=== PATIENT | male | born 1945 | race Caucasian/White ===

== ENCOUNTER 2023-07-03 17:47 | Inpatient (IN) | payer MEDICARE, SELFPAY ==
[2023-07-03] VITALS (14 sets, daily range): BP systolic 78–117; BP diastolic 56–75; BMI 44.1; BMI 45.2
--- NOTE | 2023-07-03 10:40 | ED.GENMED ---
History of Present Illness
General
Chief Complaint: Catheter/Tube Problem
Source: patient
Exam Limitations: none
Time Seen by Provider: 07/03/23 10:26
Travel History
Have you had any contact with someone who has COVID-19?: No
Do you have any symptoms of coronavirus? Fever > 100 degrees, chills, cough, shortness of breath, sore throat, loss of taste or smell, muscle aches, or headache?: No
History of Present Illness
History of Present Illness:
78-year-old male Monday dialysis patient presents from the dialysis center with potential clotted AV fistula in the right upper extremity. He was here several weeks ago for the same and had a vascular procedure performed. Last
dialysis session was last Monday. He has no complaints to offer currently.
Past History
Past History
ED Past Medical History: CAD, Cancer (Bladder), GERD, HTN, Hypercholesterolemia, IDDM, [place], Renal failure, Valvular disease and Other (BPH)
ED Past Surgical History: Cardiac, Orthopedic (Amputation Left AKA, Right BKA,) and Urological (TURP)
Social History
Tobacco: Former smoker
Alcohol: None
Drug: None
Personal:
Living: [facility]
Family History
Family History: Negative Diabetes, Hypertension or CAD
Phy Exam
Physical Exam
Physical Exam:
General: Chronically ill-appearing male no acute respiratory distress
HEENT: Normocephalic atraumatic
Heart: Regular rate and rhythm
Lungs: Clear no wheezing or rales
Extremities: Bilateral lower extremity amputations
Vascular: AV fistula palpated in the right upper extremity but no palpable thrill
Neurologic: Alert and answering all questions appropriately
Course
Orders/Labs/Results
Orders:
Orders
07/03/23 10:38
US Hemodialysis Graft Urgent
Reason For Exam: AV fistula dysfunction
07/03/23 10:53
Complete Blood Count/With Diff Urgent
Comprehensive Metabolic Panel Urgent
07/03/23 11:02
Consult Interventional Radiology [IRAD CONSULT] Routine
Consulting Provider: Herminio Galvez
Was physician already notified: Yes
Reason for consult: fistula declot
07/03/23 14:17
Midazolam HCl [Versed] 2 mg .ROUTE .STK-MED ONE
07/03/23 14:18
Fentanyl Citrate/Pf [Sublimaze] 100 mcg .ROUTE .STK-MED ONE
07/03/23 14:26
Lidocaine 2% [Xylocaine 2% Mdv] 20 ml .ROUTE .STK-MED ONE
07/03/23 14:49
Heparin 5,000 units .ROUTE .STK-MED ONE
07/03/23 14:57
Alteplase [Cathflo/Activase] 2 mg 0.9% Sodium Chloride [Nss (Preservative Free)] 3 ml Syringe [Syringe Non-Pump] 0 ml INTRACATH IRAD
Abnormal Lab Results
07/03/23
10:53
RBC 3.43 L 10^6/uL
(4.70-6.10)
Hgb 10.8 L g/dL
(13.0-18.0)
Hct 35.6 L %
(39.0-52.0)
MCV 103.8 H fL
(80.0-94.0)
MCH 31.5 H pg
(27.0-31.0)
MCHC 30.3 L g/dL
(33.0-37.0)
RDW 19.4 H %
(11.5-14.5)
MPV 10.9 H fL
(7.4-10.4)
Absolute Lymphs (auto) 0.4 L 10^3/uL
(1.2-3.4)
Neutrophils % 82.1 H %
(42.2-75.2)
Lymphocytes % 7.2 L %
(20.5-51.1)
Potassium 5.4 H mmol/L
(3.5-5.1)
Carbon Dioxide 31 H mmol/L
(22-30)
BUN 80 H mg/dl
(9-20)
Creatinine 3.8 H mg/dL
(0.7-1.3)
Glucose 129 H mg/dl
(70-99)
Calcium 8.2 L mg/dl
(8.4-10.2)
Alkaline Phosphatase 135 H U/L
(38-126)
Total Protein 6.1 L g/dl
(6.3-8.2)
Albumin 3.1 L g/dl
(3.5-5.0)
07/03/23 10:53
07/03/23 10:53
Vital Signs
Initial and Last Documented VS:
Initial Vital Signs
Pulse Resp BP Pulse Ox
78 18 98/73 100
07/03/23 10:22 07/03/23 10:22 07/03/23 10:22 07/03/23 10:22
Last Documented Vital Signs
Temp Pulse Resp BP Pulse Ox
97.7 F 95 15 91/69 100
07/03/23 13:30 07/03/23 13:30 07/03/23 13:30 07/03/23 13:30 07/03/23 13:30
MDM/Problems Addressed
Differential Diagnosis Includes:
AV fistula dysfunction right upper extremity. Question possible reclot. Discussed findings with vascular surgery who requested duplex ultrasound of the right arm. Basic labs pending
*Critical Care Note
Total Time (30-74mins, 75-104mins- exclusive of procedures): Not Applicable
Update Note
Update Note:
Seen by vascular surgery ultrasound performed which confirms clot in the AV fistula. Patient went to interventional radiology for fistulogram. Potassium is 5.4. Will require admission for hemodialysis after working hemodialysis mechanism
ED Attending Note
-
Portions of this chart may have been created with voice recognition software.� Occasional wrong word or��sound alike� substitutions may have occurred due to the inherent limitations of voice recognition software.
Discharge Plan
Departure
Patient Disposition: Admit
Date of Disposition: 07/03/23
Time of Disposition: 16:34
Admit to: Med/Surg
Presentation/result/management discussed w/ accepting MD/DO: Hospitalist
Discharge Problem:
Dialysis AV fistula malfunction
Prescriptions:
No Action
tamsulosin 0.4 MG capsule
0.4 mg PO HS
atorvastatin 80 MG tablet
80 mg PO DAILY
escitalopram oxalate 5 MG tablet
5 mg PO HS
pantoprazole 40 MG tablet,delayed release (DR/EC)
40 mg PO BID
aspirin 81 MG tablet,chewable
81 mg PO DAILY
sevelamer HCl 800 mg Tablet
1,600 mg PO MEALS
melatonin 3 mg Tablet
6 mg PO HS
docusate sodium 100 mg Capsule
100 mg PO BID
mirtazapine 15 mg Tablet
15 mg PO HS
acetaminophen [Tylenol] 325 mg Tablet
650 mg PO Q4HPRN PRN (Reason: temp>100F)
bisacodyl [Dulcolax (bisacodyl)] 10 mg Suppository
10 mg [place] DAILYPRN PRN (Reason: constipation)
midodrine 10 mg tablet
10 mg PO .TID ON MOWEFR
Rx Instructions:
05/24/2023, hold if SBP>140.
acetaminophen [Tylenol] 325 mg Tablet
650 mg PO Q6H PRN (Reason: mild pain)
lidocaine-prilocaine 2.5-2.5 % Cream
1 applic TOPICAL MOWEFR
Rx Instructions:
05/24/2023, apply 1 hr prior to HD TX.
B-complex with vitamin C Tablet
1 tab PO DAILY
potassium, sodium phosphates [Phos-NaK] 280-160-250 mg Powder In Packet
1 packet PO BID
cholecalciferol (vitamin D3) 50 mcg (2,000 unit) Tablet
50 mcg PO DAILY
MediHoney (honey) 80 % Gel
1 applic TOPICAL .SEE BELOW
Rx Instructions:
05/24/2023, apply to sacrum topically every evening shift for wound care.
metoprolol succinate 25 mg tablet extended release 24 hr
25 mg PO DAILY
Referrals:
UNKNOWN,NO INTERVIEW [Family Provider] -
Interventions
Interventions:
*Risk Screen - Suicide Last Done: 07/03/23 10:22
*General Assessment Last Done: 07/03/23 10:22
*Neglect/Abuse Screening Last Done: 07/03/23 10:22
ED- Fall Risk Assessment Last Done: 07/03/23 10:35
*ED COVID-19 Vaccine History Last Done: 07/03/23 10:22
WQ-Wjzrdm-Bzkwswvino Assessment Last Done: 07/03/23 10:35
ED-Male Genitourinary Assessment Last Done: 07/03/23 10:35
--- NOTE | 2023-07-03 11:01 | W.PN.UPDATE ---
Update Note
Progress Note Update
Known to our service status post thrombectomy (endovascular) of right upper extremity AV graft (prior placed elsewhere) by me 6 weeks ago. Subsequently was working well until today unable to access at dialysis and no thrill palpated. Sent to
emergency room. On exam he has no thrill in the graft. No pulsatility. Hand is pink and warm and well-perfused. I discussed with him we could attempt thrombectomy again. Discussed with him procedure as well as risks including but limited to
bleeding, thrombotic complications including PE and embolic complications down the arm. Discussed possible need for tunneled dialysis catheter (moderate likelihood) and risks therein including pneumothorax. He understands all these things and
wishes to proceed. Unfortunately due to mechanical issues with our image intensifier in the hybrid OR, it is not functional currently. I spoke to interventional radiology Dr. Galvez and he would be willing to perform the procedure there in the
interventional suite. I did discuss with the patient the possibility of being performed by the interventional radiologist. He understood all was in agreement.
[2023-07-03 11:08] LABS: % Basophils 1.1 % (0-2); % Eosinophils 2.5 % (0-6); % Immature Granulocytes 0.4 % (0-0.5); % Lymphocytes 7.2 % (20.5-51.1); % Monocytes 6.7 % (1.7-9.3); % Neutrophils 82.1 % (42.2-75.2); Absolute Basophils 0.1 10^3/uL (0-0.2); Absolute Eosinophils 0.1 10^3/uL (0-0.7); Absolute Lymphocytes 0.4 10^3/uL (1.2-3.4); Absolute Monocytes 0.4 10^3/uL (0.1-0.6); Absolute Neutrophils 4.5 10^3/uL (1.4-6.5); Hematocrit 35.6 % (39.0-52.0); Hemoglobin 10.8 g/dL (13.0-18.0); Mean Corp Hgb Conc. 30.3 g/dL (33.0-37.0); Mean Corpuscular Hgb 31.5 pg (27.0-31.0); Mean Corpuscular Volume 103.8 fL (80.0-94.0); Mean Platelet Volume 10.9 fL (7.4-10.4); Nucleated Red Blood Cells % 0 % (-); Platelet Count 214 10^3/uL (130-400); Red Blood Cell Count 3.43 10^6/uL (4.70-6.10); Red Cell Dist. Width 19.4 % (11.5-14.5); White Blood Cell Count 5.5 10^3/uL (4.8-10.8)
[2023-07-03 11:21] LABS: ALT (SGPT) 16 U/L (0-50); AST (SGOT) 33 U/L (17-59); Albumin 3.1 g/dl (3.5-5.0); Alkaline Phosphatase 135 U/L (38-126); Blood Urea Nitrogen 80 mg/dl (9-20); Calcium 8.2 mg/dl (8.4-10.2); Carbon Dioxide 31 mmol/L (22-30); Chloride 102 mmol/L (98-107); Estimated Creatinine Clearance 9 ml/min; Glucose 129 mg/dl (70-99); Potassium 5.4 mmol/L (3.5-5.1); Sodium 140 mmol/L (135-145); Total Bilirubin 0.7 mg/dl (0.2-1.3); Total Protein 6.1 g/dl (6.3-8.2); eGFR 15.72
--- NOTE | 2023-07-03 16:59 | HPS.HSE ---
Family Physician
-
Family Physician: NO INTERVIEW UNKNOWN
Chief Complaint
-
fistula thrombosis
History of Present Illness
78-year-old male past medical history of end-stage renal disease on hemodialysis Monday, Monday, Monday, CAD status post stent, ischemic cardiomyopathy, HFrEF, moderate mitral regurgitation, mild to moderate tricuspid regurgitation, peripheral
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
chronic disease, legal blindness, hyperlipidemia, GERD, anxiety/depression, presenting from dialysis center with clotted AV fistula in the right upper extremity. His last dialysis session was on last Monday.
Patient currently sleeping and unwilling to answer questions at this time. Denies any complaints.
Patient was recently admitted in May of this year for thrombosed right upper extremity fistula. Patient had mechanical thrombectomy and placement of and placement of [place] Vi[employer]ahn covered stent outflow vein stenosis.
Patient also had acute on chronic anemia likely blood loss anemia from the procedure and received 1 unit of blood.
Medical History
Past Medical History
Past Medical History: Reports Other (end-stage renal disease on hemodialysis Monday, Monday, Monday, CAD status post stent, ischemic cardiomyopathy, HFrEF, moderate mitral regurgitation, mild to moderate tricuspid regurgitation, peripheral
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
Past Surgical History: Reports Other (Cardiac, Orthopedic (Amputation Left AKA, Right BKA,) and Urological (TURP))
Social History
Tobacco: Non-smoker
Alcohol: None
Drug: None
Family History
Family History: Not pertinent
Allergies / Home Medications
Allergies reflects when Allergies were last updated in [employer].
Home Medications with original date entered in [employer]
Allergy/Medication List:
Allergies
Allergy/AdvReac Type Severity Reaction Status Date / Time
No Known Allergies Allergy Verified 07/03/23 11:08
Home Medications
tamsulosin 0.4 mg capsule 0.4 mg PO HS Urinary issue 08/01/14
atorvastatin 80 mg tablet 80 mg PO DAILY High cholesterol 08/11/14
escitalopram oxalate 5 mg tablet 5 mg PO HS Mental Health/Anxiety 12/18/14
aspirin 81 mg chewable tablet 81 mg PO DAILY Blood clot prevention/tx 07/25/22
pantoprazole 40 mg tablet,delayed release 40 mg PO BID Gastrointestinal issue 07/25/22
docusate sodium 100 mg capsule 100 mg PO BID Constipation 02/28/23
melatonin 3 mg tablet 6 mg PO HS Sleep 02/28/23
mirtazapine 15 mg tablet 15 mg PO HS Mental Health/Anxiety 02/28/23
sevelamer HCl 800 mg tablet 1,600 mg PO MEALS Kidney Disease 02/28/23
acetaminophen 325 mg tablet (Tylenol) 650 mg PO Q4HPRN PRN temp>100F 03/27/23
bisacodyl 10 mg rectal suppository (Dulcolax (bisacodyl)) 10 mg [place] DAILYPRN PRN constipation 03/27/23
midodrine 10 mg tablet 10 mg PO TID Blood Pressure 04/13/23
B-complex with vitamin C 1 tab PO DAILY 05/24/23
acetaminophen 325 mg tablet (Tylenol) 650 mg PO Q6H PRN mild pain 05/24/23
cholecalciferol (vitamin D3) 50 mcg (2,000 unit) tablet 50 mcg PO DAILY 05/24/23
honey 80 % topical gel (MediHoney (honey)) 1 applic topical QPM apply to sacrum 05/24/23
lidocaine-prilocaine 2.5 %-2.5 % topical cream 1 applic topical MOWEFR apply to RUE AVF site 05/24/23
metoprolol succinate 25 mg tablet,extended release 24 hr 25 mg PO DAILY Heart disease/condition 05/24/23
potassium, sodium phosphates 280 mg-160 mg-250 mg oral powder packet (Phos-NaK) 1 packet PO BID 05/24/23
Review of Systems
-
History Source: Patient
A 12 point ROS was completed and negative except as noted: Yes
Constitutional: Reports No Symptoms
EENT: Reports No Symptoms
Respiratory: Reports No Symptoms
Cardiac: Reports No Symptoms
Abdomen/GI: Reports No Symptoms
: Reports No Symptoms
Musculoskeletal: Reports No Symptoms
Skin: Reports No Symptoms
Neurological: Reports No Symptoms
Endocrine: Reports No Symptoms
Hematologic/Lymphatic: Reports No Symptoms
Psych: Reports No Symptoms
Physical Exam
Vital Signs
Vital Signs
Temp Pulse Resp BP Pulse Ox
97.7 F 95 15 91/69 100
07/03/23 13:30 07/03/23 16:30 07/03/23 16:30 07/03/23 16:30 07/03/23 13:30
Physical Exam
General: Well Developed, Well Nourished and No Apparent Distress
HEENT: NormoCephalic, Moist mucous membranes and Atraumatic
Respiratory: Clear
Cardiac: S1/S2 and Regular Rhythm; No Murmur or Rub
GI: Soft, Non Tender, Non Distended and Normal Bowel Sounds; No Organomegaly
Rectal: Deferred by Provider
Musculoskeletal: No Clubbing, No Cyanosis and No Edema
Skin: No Rash
Neuro: Nonfocal/grossly intact
Laboratory Results
-
07/03/23 10:53
07/03/23 10:53
Laboratory Results
Total Bilirubin 0.7 mg/dl (0.2-1.3) 07/03/23 10:53
AST 33 U/L (17-59) 07/03/23 10:53
ALT 16 U/L (0-50) 07/03/23 10:53
Alkaline Phosphatase 135 U/L (38-126) H 07/03/23 10:53
Data Reviewed
-
Lab Data: Labs Reviewed by me
Old Records: Reviewed
Impression/Plan
-
IMPRESSION:
PLAN:
#Recurrent thrombosed right upper extremity fistula
-underwent fistulogram/thrombolysis by IR with functioning fistula now
-Vascular surgery following
# ESRD on hemodialysis Monday, Monday, Monday
# Hyperkalemia
-Nephrology planning to dialyze tomorrow
-Continue sevelamer
Coronary artery disease status post
-continue aspirin
-Continue metoprolol
Ischemic cardiomyopathy/HFrEF
Moderate mitral regurgitation
Mild to moderate tricuspid regurgitation
Peripheral arterial disease status post right below-knee amputation/left above-knee amputation
Chronic hypotension on midodrine
-Continue midodrine
Bladder cancer status post TURBT
BPH
-Continue tamsulosin
Type II diabetes
Diabetic neuropathy
Anemia of chronic disease
Legal blindness
Hyperlipidemia
-Continue statin
GERD
-Continue Protonix
Anxiety/depression
-Continue Lexapro, mirtazapine
Full code
DVT prophylaxis�heparin
Renal diet
--- NOTE | 2023-07-03 17:01 | CM ---
CM reviewed medical records. Patient is a resident of [facility]. Patient has HD m-w-f. Return to [facility] on discharge.
PLAN: LTC [facility]
--- NOTE | 2023-07-03 18:10 | W.CON.NEPH ---
Consultation
-
Requesting Provider: Darren Thomas
Performing Provider: Carlene Bradley
Reason for Consultation: ESRD on HD
Medical History
-
Chief Complaint: ESRD on HD
History of Present Illness:
This is a 77-year-old gentleman whom we have met previously who has end-stage renal disease on hemodialysis at [facility] Mondays, Monday, Fridays via an AV graft in the right upper arm. He does have significant history of diabetes with
multiple vascular complications as well as heart
failure with reduced ejection fraction with diastolic dysfunction with multiple admissions as well for decompensated heart failure.
It seems at this time, however, he was sent for a clotted AV graft at dialysis which was noted today. His last HD session was on Monday, without trouble. He is noted to have a K of 5.4 and is sedated after his declot with vascular today and history
is obtained from chart review.
Past Medical History
end-stage renal disease on hemodialysis Monday, Monday, Monday
CAD status post stent
HFrEF
moderate mitral regurgitation
mild to moderate tricuspid regurgitation
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
chronic hypotension on midodrine
bladder cancer
GERD
hypercholesteremia
diabetes
diabetic neuropathy
bladder cancer status post TURBT
BPH
anemia of chronic disease
legal blindness
anxiety/depression
Past Surgical History: Other (1. Vasectomy. 2. TURP. 3. Femoral artery stenting. )
Social History
Tobacco: Former Smoker
Alcohol: None
Drug: None
Living: Assisted
Family History
Denies CKD
Family History: Not Pertinent
Allergies / Home Medications
Allergy/AdvReac Type Severity Reaction Status Date / Time
No Known Allergies Allergy Verified 07/03/23 11:08
Medication Instructions Recorded Confirmed Type
tamsulosin 0.4 mg capsule 0.4 mg PO HS Urinary issue 08/01/14 07/03/23 History
atorvastatin 80 mg tablet 80 mg PO DAILY High cholesterol 08/11/14 07/03/23 History
escitalopram oxalate 5 mg tablet 5 mg PO HS Mental Health/Anxiety 12/18/14 07/03/23 History
aspirin 81 mg chewable tablet 81 mg PO DAILY Blood clot 07/25/22 07/03/23 History
prevention/tx
pantoprazole 40 mg tablet,delayed 40 mg PO BID Gastrointestinal issue 07/25/22 07/03/23 History
release
docusate sodium 100 mg capsule 100 mg PO BID Constipation 02/28/23 07/03/23 History
melatonin 3 mg tablet 6 mg PO HS Sleep 02/28/23 07/03/23 History
mirtazapine 15 mg tablet 15 mg PO HS Mental Health/Anxiety 02/28/23 07/03/23 History
sevelamer HCl 800 mg tablet 1,600 mg PO MEALS Kidney Disease 02/28/23 07/03/23 History
acetaminophen 325 mg tablet 650 mg PO Q4HPRN PRN temp>100F 03/27/23 07/03/23 History
(Tylenol)
bisacodyl 10 mg rectal suppository 10 mg [place] DAILYPRN PRN constipation 03/27/23 07/03/23 History
(Dulcolax (bisacodyl))
midodrine 10 mg tablet 10 mg PO TID Blood Pressure 04/13/23 07/03/23 History
B-complex with vitamin C 1 tab PO DAILY 05/24/23 07/03/23 History
acetaminophen 325 mg tablet 650 mg PO Q6H PRN mild pain 05/24/23 07/03/23 History
(Tylenol)
cholecalciferol (vitamin D3) 50 50 mcg PO DAILY 05/24/23 07/03/23 History
mcg (2,000 unit) tablet
honey 80 % topical gel (MediHoney 1 applic topical QPM apply to 05/24/23 07/03/23 History
(honey)) sacrum
lidocaine-prilocaine 2.5 %-2.5 % 1 applic topical MOWEFR apply to 05/24/23 07/03/23 History
topical cream RUE AVF site
metoprolol succinate 25 mg 25 mg PO DAILY Heart 05/24/23 07/03/23 History
tablet,extended release 24 hr disease/condition
potassium, sodium phosphates 280 1 packet PO BID 05/24/23 07/03/23 History
mg-160 mg-250 mg oral powder
packet (Phos-NaK)
Review of Systems
-
Unable to obtain full review of systems at this time due to: Other (sedation)
History Source: Patient
All other systems: Unreviewed
Physical Exam
Vital Signs
Vital Signs
Temp Pulse Resp BP Pulse Ox
97.7 F 95 15 104/56 100
07/03/23 13:30 07/03/23 16:30 07/03/23 16:30 07/03/23 17:00 07/03/23 13:30
Lab Results
WBC 5.5 10^3/uL (4.8-10.8) 07/03/23 10:53
RBC 3.43 10^6/uL (4.70-6.10) L 07/03/23 10:53
Hgb 10.8 g/dL (13.0-18.0) L 07/03/23 10:53
Hct 35.6 % (39.0-52.0) L 07/03/23 10:53
Plt Count 214 10^3/uL (130-400) 07/03/23 10:53
Sodium 140 mmol/L (135-145) 07/03/23 10:53
Potassium 5.4 mmol/L (3.5-5.1) H 07/03/23 10:53
Chloride 102 mmol/L (98-107) 07/03/23 10:53
Carbon Dioxide 31 mmol/L (22-30) H 07/03/23 10:53
BUN 80 mg/dl (9-20) H 07/03/23 10:53
Creatinine 3.8 mg/dL (0.7-1.3) H 07/03/23 10:53
eGFR 15.72 07/03/23 10:53
Glucose 129 mg/dl (70-99) H 07/03/23 10:53
Calcium 8.2 mg/dl (8.4-10.2) L 07/03/23 10:53
Albumin 3.1 g/dl (3.5-5.0) L 07/03/23 10:53
Physical Exam
General: Other (sleepy)
HEENT: Conjunctivae Clear, Ear/Nose Intact and Dentition Intact
Respiratory: Clear
Cardiac: S1/S2 and Regular Rate/Rhythm
Breast: N/A
Abdomen: Soft, Nontender, Nondistended and Normal Bowel Sounds
Rectal: Deferred by Provider
Musculoskeletal: No Edema
Skin: No Rash
Neuro: Sedated
Assessment/Plan
-
Assessment:
HFrEF 25-30%, DD stage2
Bilateral pleural effusions
ESRD on HD-MWF RUE AVG [place]
HTN history with midodrine-dependent hypotension
HLD
History CAD with [place]
Ex-smoker
DM 2-diet controlled, DM nephropathy
PAD right BKA and left AKA
GERD
Chronic anemia, multifactorial
Depression
BPH
Legally blind
History bladder cancer
Hyperphosphatemia
clotted AVG s/p declot
Plan:
HD tomorrow
plan for midodrine tomorrow pre-HD
give TG with HD tomorrow
continue all home meds
Data Reviewed
-
Ultrasound: Report Reviewed by me
Labs: Labs Reviewed by me and Discussed with Physician
Old Records: Reviewed
--- NOTE | 2023-07-03 18:34 | PTCARENOTE ---
Received patient from ER at 1820, awake, yelling 'leave me alone' . Needs assist with turning , Has Right and left BKA, areas healed. Right upper extremity with some edema. Av fistula dressing intact. Denies pain. Has st 2 wound on mid
sacrum. Incontinent of stool, reports that he does not void. Oriented to room , call [facility]anova in reach.
[2023-07-03] MEDS: RENVELA 1600 MG PO (20:40)
[2023-07-03] MEDS: COLACE PO (21:00)
[2023-07-03] MEDS: FLOMAX 0.400000000000000022 MG PO (22:04)
[2023-07-03] MEDS: REMERON 15 MG PO (22:04)
[2023-07-03] MEDS: MELATONIN 6 MG PO (22:04)
[2023-07-03] MEDS: PROTONIX 40 MG PO (22:04)
[2023-07-03] MEDS: HEPARIN 5000 UNITS SC (22:04)
[2023-07-03] MEDS: LEXAPRO 5 MG PO (22:04)
[2023-07-04] VITALS (7 sets, daily range): BP systolic 84–113; BP diastolic 48–73; BMI 53.5
[2023-07-04] MEDS: ProAmatine 5 MG PO (06:31)
[2023-07-04] MEDS: ProAmatine 10 MG PO ×3 (06:32→17:19)
[2023-07-04] MEDS: EMLA CREAM 1 GRAM TOPICAL (06:33)
[2023-07-04] MEDS: TOPROL XL PO (07:39)
[2023-07-04] MEDS: RENVELA PO ×2 (07:51→09:51)
[2023-07-04] MEDS: PROTONIX 40 MG PO ×2 (07:51→21:04)
[2023-07-04 08:34] LABS: % Basophils 0.5 % (0-2); % Eosinophils 1.4 % (0-6); % Immature Granulocytes 0.2 % (0-0.5); % Lymphocytes 5.1 % (20.5-51.1); % Monocytes 7.8 % (1.7-9.3); Absolute Eosinophils 0.1 10^3/uL (0-0.7); Absolute Lymphocytes 0.3 10^3/uL (1.2-3.4); Absolute Monocytes 0.5 10^3/uL (0.1-0.6); Hematocrit 33.9 % (39.0-52.0); Hemoglobin 10.2 g/dL (13.0-18.0); Mean Corp Hgb Conc. 30.1 g/dL (33.0-37.0); Mean Corpuscular Hgb 31.4 pg (27.0-31.0); Mean Corpuscular Volume 104.3 fL (80.0-94.0); Mean Platelet Volume 10.8 fL (7.4-10.4); Nucleated Red Blood Cells % 0 % (-); Platelet Count 188 10^3/uL (130-400); Red Blood Cell Count 3.25 10^6/uL (4.70-6.10); Red Cell Dist. Width 18.6 % (11.5-14.5); White Blood Cell Count 5.9 10^3/uL (4.8-10.8)
[2023-07-04] MEDS: MANNITOL 12.5 GRAMS IV ×2 (08:40→09:50)
[2023-07-04] MEDS: FLEXBUMIN 25% FOR HEMODIALYSIS 12.5 GRAMS IV ×2 (08:45→09:51)
[2023-07-04] MEDS: RETACRIT 6000 UNITS IV (09:02)
[2023-07-04 09:04] LABS: ALT (SGPT) 14 U/L (0-50); AST (SGOT) 20 U/L (17-59); Albumin 2.7 g/dl (3.5-5.0); Alkaline Phosphatase 149 U/L (38-126); Blood Urea Nitrogen 87 mg/dl (9-20); Calcium 8.3 mg/dl (8.4-10.2); Carbon Dioxide 27 mmol/L (22-30); Chloride 102 mmol/L (98-107); Estimated Creatinine Clearance 7 ml/min; Glucose 87 mg/dl (70-99); Potassium 5.1 mmol/L (3.5-5.1); Sodium 137 mmol/L (135-145); Total Bilirubin 0.5 mg/dl (0.2-1.3); Total Protein 5.7 g/dl (6.3-8.2); eGFR 12.83
[2023-07-04 11:20] LABS: Hepatitis B Surface Antigen Negative (Negative)
[2023-07-04] MEDS: RENVELA 1600 MG PO ×2 (11:49→17:19)
[2023-07-04] MEDS: COLACE 100 MG PO ×2 (11:49→21:04)
[2023-07-04] MEDS: LIPITOR 80 MG PO (11:49)
[2023-07-04] MEDS: B COMPLEX w/VITAMIN C 1 CAPLET PO (11:49)
[2023-07-04] MEDS: LOW STRENGTH ASPIRIN 81 MG PO (11:49)
[2023-07-04] MEDS: VITAMIN D3 (cholecalciferol) 50 MCG PO (11:49)
[2023-07-04] MEDS: HEPARIN 5000 UNITS SC ×2 (11:49→21:03)
--- NOTE | 2023-07-04 13:13 | W.PN.HOSP.TC ---
Today's Communication/Plan
-
recheck labs tomorrow with potential dc back to SNF assuming numbers acceptable to curatorial assistant
Assessment / Plan
Assessment / Plan
#Recurrent thrombosed right upper extremity fistula
-underwent fistulogram/thrombolysis by IR with functioning fistula now
-[facility] called and requested to cancel consult to Dr. Nazario, as he had seen the patient, but deferred to [facility] for clot extraction due to timing availability
# ESRD on hemodialysis Monday, Monday, Monday
# Hyperkalemia
-Nephrology doing dialysis currently
-Continue sevelamer
Coronary artery disease status post
-continue aspirin
-Continue metoprolol
Ischemic cardiomyopathy/HFrEF
Moderate mitral regurgitation
Mild to moderate tricuspid regurgitation
Peripheral arterial disease status post right below-knee amputation/left above-knee amputation
Chronic hypotension on midodrine
-Continue midodrine
Bladder cancer status post TURBT
BPH
-Continue tamsulosin
Type II diabetes
Diabetic neuropathy
Anemia of chronic disease
Legal blindness
Hyperlipidemia
-Continue statin
GERD
-Continue Protonix
Anxiety/depression
-Continue Lexapro, mirtazapine
Full code
DVT prophylaxis�heparin
Renal diet
Anticipated Discharge: 24 - 48 hours
Subjective/Interval History
-
Date of Service: July 04, 2023
Undergoing dialysis, no evidence of distress
Objective Data
-
Labs:
Laboratory Results
07/04/23
07:46
WBC 5.9
Hgb 10.2 L
Hct 33.9 L
Plt Count 188
Sodium 137
Potassium 5.1
Chloride 102
Carbon Dioxide 27
BUN 87 H
Creatinine 4.5 H*
Glucose 87
Calcium 8.3 L
Total Bilirubin 0.5
AST 20
ALT 14
Alkaline Phosphatase 149 H
Vital Signs:
Vital Signs
Temp Pulse Resp BP Pulse Ox
97.9 F 82 20 113/64 96
07/04/23 11:00 07/04/23 11:00 07/04/23 11:00 07/04/23 11:00 07/04/23 11:00
I&O
07/03/23 07/04/23 07/05/23
06:59 06:59 06:59
Intake Total 605 / 605
Balance 605 / 605
Review of Systems
-
History Source: Patient (sedated post vascular declot) and Coordinated Provider
Constitutional: Denies Fever
Respiratory: Reports No Symptoms
Cardiac: Reports No Symptoms
Abdomen/GI: Reports No Symptoms
Physical Exam
-
General: Well Developed, Well Nourished, No Apparent Distress and Appears Chronically Ill
HEENT: Normocephalic, Atraumatic and Moist Mucous Membranes
Respiratory: Clear to Auscultation; Negative Wheezes, Rales or Rhonchi
Cardiac: Regular Rhythm and S1/S2
GI: Soft, Nontender and Nondistended
Musculoskeletal: Other (Rt BKA, Lt AKA)
Neuro: Negative Awake or Alert
--- NOTE | 2023-07-04 16:14 | W.PN.NEPH.HD ---
Assessment
-
HD tomorrow per MWF schedule
plan for midodrine tomorrow pre-HD
HD nurse with difficulty with access today, spoke with vascular who stated this is likely a failed graft
plan for TDC with IR tomorrow
ordered vein mapping per vascular surgery request
continue all home meds
Progress Note - Hemodialysis
-
Date of Service: July 04, 2023
Duration: 30 minutes and 3 hours
Potassium Bath: 3
Calcium Bath: 2.5
Opti-Dialyzer: 160
Ultrafiltration: Other
Blood Flow: 400
Dialysate Flow: 600
[2023-07-04] MEDS: FLOMAX 0.400000000000000022 MG PO (21:04)
[2023-07-04] MEDS: LEXAPRO 5 MG PO (21:04)
[2023-07-04] MEDS: MELATONIN 6 MG PO (21:04)
[2023-07-04] MEDS: REMERON 15 MG PO (21:04)
[2023-07-05] VITALS (18 sets, daily range): BP systolic 86–122; BP diastolic 50–75; BMI 53.5
[2023-07-05] MEDS: RENVELA PO ×2 (07:48→11:56)
[2023-07-05] MEDS: PROTONIX 40 MG PO ×2 (08:39→21:11)
[2023-07-05] MEDS: LIPITOR 80 MG PO (08:39)
[2023-07-05] MEDS: TOPROL XL 25 MG PO (08:40)
[2023-07-05] MEDS: VITAMIN D3 (cholecalciferol) 50 MCG PO (08:40)
[2023-07-05] MEDS: COLACE 100 MG PO ×2 (08:40→21:11)
[2023-07-05] MEDS: LOW STRENGTH ASPIRIN 81 MG PO (08:40)
[2023-07-05] MEDS: ProAmatine 10 MG PO ×3 (08:40→17:21)
[2023-07-05] MEDS: B COMPLEX w/VITAMIN C 1 CAPLET PO (08:41)
[2023-07-05] MEDS: HEPARIN 5000 UNITS SC ×2 (08:41→21:12)
[2023-07-05 08:44] LABS: Blood Urea Nitrogen 53 mg/dl (9-20); Carbon Dioxide 28 mmol/L (22-30); Chloride 98 mmol/L (98-107); Estimated Creatinine Clearance 10 ml/min; Glucose 104 mg/dl (70-99); Potassium 4.8 mmol/L (3.5-5.1); Sodium 135 mmol/L (135-145); eGFR 20.07
--- NOTE | 2023-07-05 11:22 | PN.CDI ---
CDI
- -
CDI:
Physician Documentation Request
Admit Date: 07/03/23 17:47
Dear Doctor Nathalie,
Clinical Indicators:
Patient admitted with clotted AV fistula.
HD per MWF schedule.
Weights stable:
07/03/23
18:30 07/04/23
06:00 07/05/23
06:00
Actual Weight 148 lb 3.2 oz 147 lb 4 oz 147 lb 3 oz
PN,'Ischemic cardiomyopathy/HFrEF'
Please specify the acuity of the HFrEF:
Chronic HFrEF
Other, please specify
Use of terms such as suspected, likely, concern for, or probable (associated with a specific diagnosis that is being evaluated, monitored, or treated as if it exists) are acceptable and can be coded in the inpatient setting, when documented at the
time of discharge.
Thank you,
PAULINO Cali RN
CDI Specialist
available via tiger text
Please use your independent medical judgment in providing your response.
--- NOTE | 2023-07-05 11:34 | PN.CDI ---
CDI
- -
CDI:
Physician Documentation Request
Admit Date: 07/03/23 17:47
Dear Doctor Kwaku,
Clinical Indicators:
Patient admitted with clotted AV fistula.
Dressing to sacrum POA.
3/5 RN Skin Wound Assessment: Sacrum Stage 2 Pressure Injury, POA
Appearance: pink wound bed
Treatment: Adhesive foam dressing
Physician documentation of the type and location of wounds is required for compliant documentation. Based on the above clinical findings and your assessment, please provide the following in your progress note:
1. Location of the ulcer/wound, including laterality.
2. Type (etiology) of ulcer/wound:
- Pressure (decubitus) ulcer
- Other, please specify
- Unable to determine
4. If a pressure ulcer, please also include the stage* of the ulcer:
- Stage 1 - Skin intact, non-blanchable redness
- Stage 2 - Partial thickness loss of dermis, includes intact or open blister
- Stage 3 - Full thickness tissue not including bone, tendon or muscle
- Stage 4 - Full thickness tissue loss, including exposed bone, tendon or muscle
- Unstageable - Full thickness loss in which the base of the ulcer is covered by slough (yellow, love, vaz, green or brown) and/or eschar (love, brown or black) in the wound bed.
- Unable to determine
Use of terms such as suspected, likely, concern for, or probable (associated with a specific diagnosis that is being evaluated, monitored, or treated as if it exists) are acceptable and can be coded in the inpatient setting, when documented at the
time of discharge.
Thank you,
PAULINO Cali RN
CDI Specialist
available via tiger text
Please use your independent medical judgment in providing your response.
*Source: National Pressure Ulcer Advisory Panel (NPUAP)
--- NOTE | 2023-07-05 14:19 | W.PN.HOSP.TC ---
Today's Communication/Plan
-
for tunneled catheter today then resume dialysis
Assessment / Plan
Assessment / Plan
#Recurrent thrombosed right upper extremity fistula
-underwent fistulogram/thrombolysis by IR with functioning fistula now
-[facility] called and requested to cancel consult to Dr. Nazario, as he had seen the patient, but deferred to [facility] for clot extraction due to timing availability
# ESRD on hemodialysis Monday, Monday, Monday
# Hyperkalemia
-Nephrology: dialysis currently on hold for presumptive failed graft, for placement of a tunneled dialysis graft today, following which dialysis will be resumed, then hopefully dc to follow
-Continue sevelamer
07/03 RN Skin Wound Assessment:��Sacrum Stage 2 Pressure Injury, POA�� � � � � � � � � � � � � � � � � � � � � � � � � � � Appearance: pink wound bed
�� � � � � � � � � � � � � � � � � � � � � � � � � � � Treatment: Adhesive foam dressing
Chronic HFrEF
Echo 03/27/23 demontrated EF 25-30%
Coronary artery disease
-continue aspirin
-Continue metoprolol
Ischemic cardiomyopathy/HFrEF
Moderate mitral regurgitation
Mild to moderate tricuspid regurgitation
Peripheral arterial disease status post right below-knee amputation/left above-knee amputation
Chronic hypotension on midodrine
-Continue midodrine
Bladder cancer status post TURBT
BPH
-Continue tamsulosin
Type II diabetes
Diabetic neuropathy
Anemia of chronic disease
Legal blindness
Hyperlipidemia
-Continue statin
GERD
-Continue Protonix
Anxiety/depression
-Continue Lexapro, mirtazapine
Full code
DVT prophylaxis�heparin
Renal diet
Anticipated Discharge: 24 - 48 hours
Subjective/Interval History
-
Date of Service: July 05, 2023
sleeping
Objective Data
-
Labs:
Laboratory Results
07/05/23
07:18
Sodium 135
Potassium 4.8
Chloride 98
Carbon Dioxide 28
BUN 53 H
Creatinine 3.1 H
Glucose 104 H
Calcium 8.0 L
Vital Signs:
Vital Signs
Temp Pulse Resp BP Pulse Ox
98.1 F 69 18 93/56 97
07/05/23 07:30 07/05/23 13:25 07/05/23 07:30 07/05/23 13:25 07/05/23 07:30
I&O
07/04/23 07/05/23 07/06/23
06:59 06:59 06:59
Intake Total 605 / 605 1010 / 1010
Balance 605 / 605 1010 / 1010
Review of Systems
-
History Source: Patient (reman sedated) and Coordinated Provider
Constitutional: Denies Fever
Respiratory: Reports No Symptoms
Cardiac: Reports No Symptoms
Abdomen/GI: Reports No Symptoms
Physical Exam
-
General: Well Developed, Well Nourished, No Apparent Distress and Appears Chronically Ill
HEENT: Normocephalic, Atraumatic and Moist Mucous Membranes
Respiratory: Clear to Auscultation; Negative Wheezes, Rales or Rhonchi
Cardiac: Regular Rhythm and S1/S2
GI: Soft, Nontender and Nondistended
Musculoskeletal: Other (Rt BKA, Lt AKA)
Neuro: Negative Awake or Alert
--- NOTE | 2023-07-05 15:06 | W.PN.NEPH.PH ---
Today's Communication / Plan
-
Tunneled dialysis catheter today
Dialysis tomorrow
Assessment/Plan
-
Assessment:
HFrEF 25-30%, DD stage2
Bilateral pleural effusions
ESRD on HD-MWF RUE AVG [facility]
HTN history with midodrine-dependent hypotension
HLD
History CAD with TN
Ex-smoker
DM 2-diet controlled, DM nephropathy
PAD right BKA and left AKA
GERD
Chronic anemia, multifactorial
Depression
BPH
Legally blind
History bladder cancer
Hyperphosphatemia
clotted AVG s/p declot
Plan:
HD tomorrow, tunnled catheter pplaced today
plan for midodrine tomorrow pre-HD
give TG with HD tomorrow
continue all home meds
AV graft occlusion will be dealt with as outpatient by vascular
-
-
Date of Service: July 05, 2023
CC / HPI / ROS
-
Chief Complaint:
End-stage renal disease
History of Present Illness:
End-stage renal disease on Monday
Hemodynamically labile
Review of Systems:
No chest pain or shortness of breath
Labs
-
Labs:
WBC 5.9 10^3/uL (4.8-10.8) 07/04/23 07:46
RBC 3.25 10^6/uL (4.70-6.10) L 07/04/23 07:46
Hgb 10.2 g/dL (13.0-18.0) L 07/04/23 07:46
Hct 33.9 % (39.0-52.0) L 07/04/23 07:46
Plt Count 188 10^3/uL (130-400) 07/04/23 07:46
Sodium 135 mmol/L (135-145) 07/05/23 07:18
Potassium 4.8 mmol/L (3.5-5.1) 07/05/23 07:18
Chloride 98 mmol/L (98-107) 07/05/23 07:18
Carbon Dioxide 28 mmol/L (22-30) 07/05/23 07:18
BUN 53 mg/dl (9-20) H 07/05/23 07:18
Creatinine 3.1 mg/dL (0.7-1.3) H 07/05/23 07:18
eGFR 20.07 07/05/23 07:18
Glucose 104 mg/dl (70-99) H 07/05/23 07:18
Calcium 8.0 mg/dl (8.4-10.2) L 07/05/23 07:18
Albumin 2.7 g/dl (3.5-5.0) L 07/04/23 07:46
Physical Exam
-
Vital Signs:
Vital Signs
Temp Pulse Resp BP Pulse Ox
97.5 F 100 18 93/56 100
07/05/23 14:18 07/05/23 14:18 07/05/23 14:18 07/05/23 13:25 07/05/23 14:18
Cardiovascular:: Regular rate and rhythm
Respiratory:: Bilateral: Coarse
Extremity Edema:: None: Bilateral:
Gonzalez Catheter: No
[2023-07-05] MEDS: ANCEF 10 IV (15:40)
--- NOTE | 2023-07-05 16:53 | PTCARENOTE ---
patient post right chest tunneled catheter placement. bp 80/50s consistently. cardiac rhythm appears to be sinus arrhythmia with PVCs. Dr. Ames made aware as patient is assigned to a med/surg bed. No new orders at this time.
[2023-07-05] MEDS: RENVELA 1600 MG PO (17:22)
[2023-07-05] MEDS: FLOMAX 0.400000000000000022 MG PO (21:11)
[2023-07-05] MEDS: LEXAPRO 5 MG PO (21:11)
[2023-07-05] MEDS: MELATONIN 6 MG PO (21:12)
[2023-07-05] MEDS: REMERON 15 MG PO (21:12)
[2023-07-06 06:00] VITALS: BMI 52.9
[2023-07-06] MEDS: EMLA CREAM 1 GRAM TOPICAL (06:02)
[2023-07-06] MEDS: ProAmatine 10 MG PO ×3 (06:03→17:00)
[2023-07-06 07:30] VITALS: BP 81/43
[2023-07-06 07:55] LABS: Hematocrit 34.3 % (39.0-52.0); Hemoglobin 10.4 g/dL (13.0-18.0)
[2023-07-06] MEDS: HEPARIN 500 UNITS IV ×2 (07:55→08:55)
[2023-07-06 08:18] LABS: Carbon Dioxide 30 mmol/L (22-30); Chloride 99 mmol/L (98-107); Potassium 4.6 mmol/L (3.5-5.1); Sodium 135 mmol/L (135-145)
[2023-07-06] MEDS: RETACRIT 10000 UNITS IV (08:21)
[2023-07-06] MEDS: MANNITOL 12.5 GRAMS IV ×2 (08:34→09:47)
--- NOTE | 2023-07-06 09:03 | W.PN.NEPH.HD ---
Assessment
-
Patient seen on dialysis
Systolic blood pressure 107 at current UF
Tunneled dialysis catheter working well
Should be discharged after dialysis
Progress Note - Hemodialysis
-
Date of Service: July 06, 2023
Duration: 30 minutes and 3 hours
Potassium Bath: 2
Calcium Bath: 2.5
Opti-Dialyzer: 160
Ultrafiltration: Other (.5kg)
Blood Flow: 400
Dialysate Flow: 600
Heparin: 500 times two
EPO: 10K
[2023-07-06] MEDS: HEPARIN 4300 UNITS INTRACATH (11:16)
[2023-07-06] MEDS: RENVELA PO (12:19)
[2023-07-06] MEDS: B COMPLEX w/VITAMIN C 1 CAPLET PO (12:24)
[2023-07-06] MEDS: COLACE 100 MG PO (12:24)
[2023-07-06] MEDS: LOW STRENGTH ASPIRIN 81 MG PO (12:24)
[2023-07-06] MEDS: RENVELA 1600 MG PO ×2 (12:24→17:30)
[2023-07-06] MEDS: LIPITOR 80 MG PO (12:24)
[2023-07-06] MEDS: VITAMIN D3 (cholecalciferol) 50 MCG PO (12:25)
[2023-07-06] MEDS: PROTONIX 40 MG PO (12:25)
[2023-07-06] MEDS: TOPROL XL 25 MG PO (12:25)
[2023-07-06] MEDS: HEPARIN 5000 UNITS SC (12:26)
--- NOTE | 2023-07-06 13:51 | W.PN.HOSP.TC ---
Today's Communication/Plan
-
dc to SNF
Assessment / Plan
Assessment / Plan
#Recurrent thrombosed right upper extremity fistula
-underwent fistulogram/thrombolysis by IR, contacted by dialysis nurse that poor flow. A Tunneled Rt Internal Jugular dialysis catheter placed on 07/04. Pt receiving dialysis currently and as per nurse functioning well
Cleared by Dr. Styles to be discharged
# ESRD on hemodialysis Monday, Monday, Monday
# Hyperkalemia
-Continue sevelamer
07/03 RN Skin Wound Assessment:��Sacrum Stage 2 Pressure Injury, POA�� � � � � � � � � � � � � � � � � � � � � � � � � � � Appearance: pink wound bed
�� � � � � � � � � � � � � � � � � � � � � � � � � � � Treatment: Adhesive foam dressing
Chronic HFrEF
Echo 03/27/23 demontrated EF 25-30%
Coronary artery disease
-continue aspirin
-Continue metoprolol
Ischemic cardiomyopathy/HFrEF
Moderate mitral regurgitation
Mild to moderate tricuspid regurgitation
Peripheral arterial disease status post right below-knee amputation/left above-knee amputation
Chronic hypotension on midodrine
-Continue midodrine
Bladder cancer status post TURBT
BPH
-Continue tamsulosin
Type II diabetes
Diabetic neuropathy
Anemia of chronic disease
Legal blindness
Hyperlipidemia
-Continue statin
GERD
-Continue Protonix
Anxiety/depression
-Continue Lexapro, mirtazapine
Full code
DVT prophylaxis�heparin
Renal diet
dc to SNF
see dictated note, confirmed with CM, able to take back now
see dictated note
Anticipated Discharge: Today
Subjective/Interval History
-
Date of Service: July 06, 2023
Appears comfortable, answers basic questions with short answers
Objective Data
-
Labs:
Laboratory Results
07/06/23
07:32
Hgb 10.4 L
Hct 34.3 L
Sodium 135
Potassium 4.6
Chloride 99
Carbon Dioxide 30
Vital Signs:
Vital Signs
Temp Pulse Resp BP Pulse Ox
98.1 F 76 18 81/43 99
07/06/23 07:30 07/06/23 07:30 07/06/23 07:30 07/06/23 07:30 07/06/23 08:00
I&O
07/05/23 07/06/23 07/07/23
06:59 06:59 06:59
Intake Total 1010 / 1010
Balance 1010 / 1010
Review of Systems
-
History Source: Patient and Coordinated Provider
Constitutional: Denies Fever
Respiratory: Reports No Symptoms
Cardiac: Reports No Symptoms
Abdomen/GI: Reports No Symptoms
Physical Exam
-
General: Well Developed, Well Nourished, No Apparent Distress and Appears Chronically Ill
HEENT: Normocephalic, Atraumatic and Moist Mucous Membranes
Respiratory: Clear to Auscultation; Negative Wheezes, Rales or Rhonchi
Cardiac: Regular Rhythm and S1/S2
GI: Soft, Nontender and Nondistended
Musculoskeletal: Other (Rt BKA, Lt AKA)
Neuro: Negative Awake or Alert
--- NOTE | 2023-07-06 14:50 | CM ---
patient had hd today.stable for dc back to [facility].spoke with nelly who is agreeable t taking patient back ro facility today.
phone number to call report is [phone] and fsx number [phone].floor nurse and attending aware.
Plan discharge to [facility] today.
--- NOTE | 2023-07-06 14:57 | W.DS.TRANS ---
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
-
Discharge Instructions:
Sleep Apnea Risk Intermediate
Discharge Diagnosis/Procedures Dialysis malfunctioning fistula
Diet Other diet
Additional Diets renal diet as prior to admission
Activity With assistance
Driving Restrictions No driving
Bathing Restrictions None
Blood Work routine dialysis blood work
Instructions:
Stand-Alone Forms:
Changes to Home Medications: No
Discharge Medications:
DC Medications w/original date entered in [employer]
tamsulosin 0.4 mg capsule 0.4 mg PO HS Urinary issue 08/01/14
atorvastatin 80 mg tablet 80 mg PO DAILY High cholesterol 08/11/14
escitalopram oxalate 5 mg tablet 5 mg PO HS Mental Health/Anxiety 12/18/14
aspirin 81 mg chewable tablet 81 mg PO DAILY Blood clot prevention/tx 07/25/22
pantoprazole 40 mg tablet,delayed release 40 mg PO BID Gastrointestinal issue 07/25/22
docusate sodium 100 mg capsule 100 mg PO BID Constipation 02/28/23
melatonin 3 mg tablet 6 mg PO HS Sleep 02/28/23
mirtazapine 15 mg tablet 15 mg PO HS Mental Health/Anxiety 02/28/23
sevelamer HCl 800 mg tablet 1,600 mg PO MEALS Kidney Disease 02/28/23
acetaminophen 325 mg tablet (Tylenol) 650 mg PO Q4HPRN PRN temp>100F 03/27/23
bisacodyl 10 mg rectal suppository (Dulcolax (bisacodyl)) 10 mg [place] DAILYPRN PRN constipation 03/27/23
midodrine 10 mg tablet 10 mg PO TID Blood Pressure 04/13/23
B-complex with vitamin C 1 tab PO DAILY Supplement 05/24/23
acetaminophen 325 mg tablet (Tylenol) 650 mg PO Q6H PRN mild pain 05/24/23
cholecalciferol (vitamin D3) 50 mcg (2,000 unit) tablet 50 mcg PO DAILY Supplement 05/24/23
honey 80 % topical gel (OpenLabel (honey)) 1 applic topical QPM apply to sacrum 05/24/23
lidocaine-prilocaine 2.5 %-2.5 % topical cream 1 applic topical MOWEFR apply to RUE AVF site 05/24/23
metoprolol succinate 25 mg tablet,extended release 24 hr 25 mg PO DAILY Heart disease/condition 05/24/23
potassium, sodium phosphates 280 mg-160 mg-250 mg oral powder packet (Phos-NaK) 1 packet PO BID Kidney Disease 05/24/23
Home Medication Changes
Pending Results: No
[2023-07-06 15:30] VITALS: BP 87/60
== END 2023-07-06 19:48 | DRG 252 ==
LOC: 4 WEST ACU 17:47
PROVIDERS: Physician Assistant; Radiology Diagnostic Radiology; Radiology Vascular & Interventional Radiology; Specialist; ADMITTING PHYSICIAN Hospitalist; ATTENDING PHYSICIAN Internal Medicine; CONSULT PHYSICIAN Student in an Organized Health Care Education/Training Program; EMERGENCY PHYSICIAN Emergency Medicine
PROC: B51W1ZZ Fluoroscopy of Dialysis Shunt/Fistula using Low Osmolar Contrast (ICD-10-PCS; 2023-07-03)
PROC: 05CB3ZZ Extirpation of Matter from Right Basilic Vein, Percutaneous Approach (ICD-10-PCS; 2023-07-03)
PROC: 05WY37Z Revision of Autologous Tissue Substitute in Upper Vein, Percutaneous Approach (ICD-10-PCS; 2023-07-03)
PROC: 5A1D70Z Performance of Urinary Filtration, Intermittent, Less than 6 Hours Per Day (ICD-10-PCS; 2023-07-04)
PROC: B5131ZA Fluoroscopy of Right Jugular Veins using Low Osmolar Contrast, Guidance (ICD-10-PCS; 2023-07-05)
PROC: 05HM33Z Insertion of Infusion Device into Right Internal Jugular Vein, Percutaneous Approach (ICD-10-PCS; 2023-07-05)
PROC: 0JH63XZ Insertion of Tunneled Vascular Access Device into Chest Subcutaneous Tissue and Fascia, Percutaneous Approach (ICD-10-PCS; 2023-07-05)
DX: T82.868A Thrombosis due to vascular prosthetic devices, implants and grafts, initial encounter (principal); N18.6 End stage renal disease; I13.2 Hypertensive heart and chronic kidney disease with heart failure and with stage 5 chronic kidney disease, or end stage renal disease; Y82.8 Other medical devices associated with adverse incidents; E11.22 Type 2 diabetes mellitus with diabetic chronic kidney disease; D63.8 Anemia in other chronic diseases classified elsewhere; E87.5 Hyperkalemia; I25.10 Atherosclerotic heart disease of native coronary artery without angina pectoris; I25.5 Ischemic cardiomyopathy; I08.1 Rheumatic disorders of both mitral and tricuspid valves; E11.40 Type 2 diabetes mellitus with diabetic neuropathy, unspecified; K21.9 Gastro-esophageal reflux disease without esophagitis; F41.9 Anxiety disorder, unspecified; L89.152 Pressure ulcer of sacral region, stage 2; F32.A Depression, unspecified; Z99.2 Dependence on renal dialysis; Z89.511 Acquired absence of right leg below knee; Z89.612 Acquired absence of left leg above knee; Z85.51 Personal history of malignant neoplasm of bladder
CPT/HCPCS: 36558; 36905; 36907; 76937; 77001; 80048; 80051; 80053; 85014; 85018; 85025; 87340; 93985; 93990; 99152; 99153; 99285; C1725; C1750; C1757; C1769; C1887; G0257; J2997; P9047; Q5106

== ENCOUNTER 2023-07-14 19:02 | Inpatient (IN) | payer MEDICARE, SELFPAY ==
[2023-07-14] VITALS (8 sets, daily range): BP systolic 100–123; BP diastolic 65–90; BMI 22.5
--- NOTE | 2023-07-14 14:34 | ED.GENMED ---
History of Present Illness
General
Chief Complaint: Breathing Problem
Source: ambulance crew and [facility]
Time Seen by Provider: 07/14/23 14:05
Travel History
Have you had any contact with someone who has COVID-19?: No
Do you have any symptoms of coronavirus? Fever > 100 degrees, chills, cough, shortness of breath, sore throat, loss of taste or smell, muscle aches, or headache?: No
History of Present Illness
History of Present Illness:
8-year-old male presents to the emergency room from [facility] for evaluation of altered mental status. Patient has end-stage renal disease and receives dialysis Monday. He did receive dialysis today. He was much
more confused and lethargic today than what they feel his baseline is. Patient also noted to be hypoxic. Patient denies any complaints but does seem confused.
Past History
Past History
ED Past Medical History: CAD, Cancer (Bladder), GERD, HTN, Hypercholesterolemia, IDDM, [place], Renal failure, Valvular disease and Other (BPH)
ED Past Surgical History: Cardiac, Orthopedic (Amputation Left AKA, Right BKA,) and Urological (TURP)
Social History
Tobacco: Former smoker
Alcohol: None
Drug: None
Personal:
Living: [facility]
Family History
Family History: Negative Diabetes, Hypertension or CAD
Phy Exam
Physical Exam
Physical Exam:
General: Sleeping but arousable, oriented to place only
Vitals: Tachycardic
Head: Atraumatic
Eyes: Pupils equal, EOMI
Throat: Airway intact, no exudates
Neck: Trachea midline
Lungs: Clear and equal b/l
Heart: irregular rate, no murmurs
Abd: Soft, Nontender, No pulsatile mass
Neuro: Grossly nonfocal
Skin: Warm, dry, no rash
Extremities: pulses equal b/l, bilateral below the knee amputations
Scores
Heart Failure Risk
Heart Failure Risk Score: Not Applicable
Course
Orders/Labs/Results
Orders:
Orders
07/14/23 14:22
CT Head W/o Iv Contrast Urgent
Comment:
Reason For Exam: altered mental status
07/14/23 14:25
CR Chest Portable - 1 View Urgent
Comment:
Reason For Exam: sob
Reason Study Needs to be Portable: Unable to Transport
07/14/23 14:38
Electrocardiogram (*1) Urgent
Reason for Study: Tachycardia
EKG- Treatment ONCE
07/14/23 15:46
Complete Blood Count/With Diff Urgent
Comprehensive Metabolic Panel Urgent
07/14/23 17:08
Venous Blood Gas Urgent
%Oxygen/Room Air: 28
07/14/23 18:13
Admit/Transfer Patient As Directed
Co-Sign Provider:
Level of Care: Inpatient admission
Assign to:: Telemetry
Physician / Group: Hospitalist
Diagnosis: confusion
Reason for Telemetry: Arrhythmia
Date to Stop Telemetry: 07/17/23
Time to Stop Telemetry: 11:00
Reason for Hospitalization: confusion
Expected length of stay greater than two midnights?: Yes
ELOS- Estimated Length of Stay in days: 2
I certify the patient meets the requirements for IP care: Yes
07/14/23 18:16
Code Status As Directed
Resuscitation Status: Full Code
07/14/23 18:34
COVID-19 Antigen Urgent
Source: Nasal Swab
Influenza A+B Rapid Molecular Urgent
MAU Source: Nasal Swab
Specimen Description:
07/14/23 18:45
Blood Culture Q30M
MAU Source: Blood/Venous
Specimen Description:
07/14/23 20:15
Blood Culture Q30M
MAU Source: Blood/Venous
Specimen Description:
07/17/23 11:00
DC Protocol for Telemetry ONCE
Abnormal Lab Results
07/14/23 07/14/23
15:46 17:08
RBC 3.61 L 10^6/uL
(4.70-6.10)
Hgb 11.3 L g/dL
(13.0-18.0)
Hct 36.1 L %
(39.0-52.0)
MCV 100.0 H fL
(80.0-94.0)
MCH 31.3 H pg
(27.0-31.0)
MCHC 31.3 L g/dL
(33.0-37.0)
RDW 19.3 H %
(11.5-14.5)
Absolute Lymphs (auto) 0.4 L 10^3/uL
(1.2-3.4)
Immature Gran % 0.6 H %
(0-0.5)
Neutrophils % 84.6 H %
(42.2-75.2)
Lymphocytes % 6.2 L %
(20.5-51.1)
VBG pO2 72 H mmHg
(30-50)
VBG HCO3 30.5 H mmol/L
(22-27)
BUN 45 H mg/dl
(9-20)
Creatinine 2.0 H mg/dL
(0.7-1.3)
Glucose 100 H mg/dl
(70-99)
Calcium 8.2 L mg/dl
(8.4-10.2)
Alkaline Phosphatase 185 H U/L
(38-126)
Albumin 3.3 L g/dl
(3.5-5.0)
07/14/23 15:46
07/14/23 15:46
Vital Signs
Initial and Last Documented VS:
Initial Vital Signs
Temp Pulse Resp BP Pulse Ox
98.1 F 107 14 102/71 95
07/14/23 13:47 07/14/23 13:47 07/14/23 13:47 07/14/23 13:47 07/14/23 13:47
Last Documented Vital Signs
Temp Pulse Resp BP Pulse Ox
99.4 F 108 22 105/67 100
07/14/23 15:18 07/14/23 19:45 07/14/23 19:45 07/14/23 19:00 07/14/23 14:45
MDM/Problems Addressed
Differential Diagnosis Includes:
Subdural, CVA, electrode abnormality, dialysis disequilibrium syndrome
MDM/Problems Addressed:
Patient apparently quite off of his baseline. No clear cause based upon labs. Considered CO2 retention but CO2 is normal and venous blood gas. CT head shows no acute abnormalities. Chest x-ray has chronic changes but they appear stable from
previous imaging. Will hospitalize the patient for further monitoring and workup of this altered mental status.
*Pulse Oximetry
Patient hypoxic: no
Comment: Baseline supplemental oxygen
*EKG
Interpreted by ED Provider?: Yes
Interpretation: abnormal
Heart Rate: 116
Rate: tachycardiac
Rhythm: sinus tachycardia
Interval: first degree heart block
Ischemia: non-specific ST changes
*[facility] Interpretation
Rate: tachycardiac
Interpretation: abnormal
Heart Rate: 116
Rhythm: sinus tachycardia
*Critical Care Note
Total Time (30-74mins, 75-104mins- exclusive of procedures): Not Applicable
Data Reviewed
Review of Other/Old Records Reveals: Radiology Studies and Discharge Summary
Patient Management
Social determinants of health affecting care: Living situation
ED Attending Note
-
Portions of this chart may have been created with voice recognition software.� Occasional wrong word or��sound alike� substitutions may have occurred due to the inherent limitations of voice recognition software.
Discharge Plan
Departure
Patient Disposition: Admit
Date of Disposition: 07/14/23
Time of Disposition: 16:57
Admit to: Med/Surg
Presentation/result/management discussed w/ accepting MD/DO: Hospitalist
Condition: Fair
Discharge Problem:
ESRD (end stage renal disease), Acute alteration in mental status
Interventions
Interventions:
*Risk Screen - Suicide Last Done: 07/14/23 13:47
*General Assessment Last Done: 07/14/23 13:47
*Neglect/Abuse Screening Last Done: 07/14/23 13:47
ED- Fall Risk Assessment Last Done: 07/14/23 14:10
*ED COVID-19 Vaccine History Last Done: 07/14/23 13:53
ED- Cardiac Assessment Last Done: 07/14/23 14:10
ED- Neurological Assessment Last Done: 07/14/23 14:10
ED- Pulmonary Assessment Last Done: 07/14/23 14:10
[2023-07-14 16:05] LABS: % Basophils 0.9 % (0-2); % Eosinophils 1.8 % (0-6); % Immature Granulocytes 0.6 % (0-0.5); % Lymphocytes 6.2 % (20.5-51.1); % Monocytes 5.9 % (1.7-9.3); % Neutrophils 84.6 % (42.2-75.2); Absolute Basophils 0.1 10^3/uL (0-0.2); Absolute Eosinophils 0.1 10^3/uL (0-0.7); Absolute Lymphocytes 0.4 10^3/uL (1.2-3.4); Absolute Monocytes 0.4 10^3/uL (0.1-0.6); Absolute Neutrophils 5.7 10^3/uL (1.4-6.5); Hematocrit 36.1 % (39.0-52.0); Hemoglobin 11.3 g/dL (13.0-18.0); Mean Corp Hgb Conc. 31.3 g/dL (33.0-37.0); Mean Corpuscular Hgb 31.3 pg (27.0-31.0); Mean Platelet Volume 10.2 fL (7.4-10.4); Nucleated Red Blood Cells % 0 % (-); Platelet Count 240 10^3/uL (130-400); Red Blood Cell Count 3.61 10^6/uL (4.70-6.10); Red Cell Dist. Width 19.3 % (11.5-14.5); White Blood Cell Count 6.8 10^3/uL (4.8-10.8)
[2023-07-14 16:17] LABS: ALT (SGPT) 13 U/L (0-50); AST (SGOT) 37 U/L (17-59); Albumin 3.3 g/dl (3.5-5.0); Alkaline Phosphatase 185 U/L (38-126); Blood Urea Nitrogen 45 mg/dl (9-20); Calcium 8.2 mg/dl (8.4-10.2); Carbon Dioxide 26 mmol/L (22-30); Chloride 101 mmol/L (98-107); Glucose 100 mg/dl (70-99); Potassium 4.7 mmol/L (3.5-5.1); Sodium 137 mmol/L (135-145); Total Bilirubin 0.7 mg/dl (0.2-1.3); Total Protein 6.7 g/dl (6.3-8.2); eGFR 33.95
[2023-07-14 17:19] LABS: Venous Blood Gas B.E. 5.2 mmol/L (-4 to +4); Venous Blood Gas HCO3 30.5 mmol/L (22-27); Venous Blood Gas O2 Sat % 95.1 %; Venous Blood Gas pCO2 47 mmHg (35-48); Venous Blood Gas pH 7.42 (7.32-7.43); Venous Blood Gas pO2 72 mmHg (30-50)
--- NOTE | 2023-07-14 18:34 | HPS.HSE ---
Family Physician
-
Family Physician: Donald Saini [facility]
Chief Complaint
-
confusion
History of Present Illness
78yo M with PMHx of ESRD on HD, clogged R AVF, now with R IJ tunneled HD cath (placed 2 weeks ago), DM, HFrEF, PAD, s/p L AKA, R BKA with phantom pains, chronic hypotension, BPH, Hx of HTN was sent from [facility] with worsening confusion, asking to talk
to his , who is for years. As per halie (who is a RN) bedside - he had similar episodes on and off before. In ED no leukocytosis, no fever, XR chest with chronic changes, patient is anuric as per himself. Concern for small red bump upon
insertion of HD catheter into IJ. AVF on RUE without pain or redness. ALso new onset Afib
Medical History
Past Medical History
Past Medical History: Reports Other (See HPI)
Past Surgical History: Reports Other
Additional Past Surgical History:
See HPI
Social History
Tobacco: Non-smoker
Alcohol: None
Drug: None
Family History
Family History: Not pertinent
Allergies / Home Medications
Allergies reflects when Allergies were last updated in [employer].
Home Medications with original date entered in [employer]
Allergy/Medication List:
Allergies
Allergy/AdvReac Type Severity Reaction Status Date / Time
No Known Allergies Allergy Verified 07/03/23 11:08
Home Medications
tamsulosin 0.4 mg capsule 0.4 mg PO HS Urinary issue 08/01/14
atorvastatin 80 mg tablet 80 mg PO DAILY High cholesterol 08/11/14
escitalopram oxalate 5 mg tablet 5 mg PO HS Mental Health/Anxiety 12/18/14
aspirin 81 mg chewable tablet 81 mg PO DAILY Blood clot prevention/tx 07/25/22
pantoprazole 40 mg tablet,delayed release 40 mg PO BID Gastrointestinal issue 07/25/22
docusate sodium 100 mg capsule 100 mg PO BID Constipation 02/28/23
melatonin 3 mg tablet 6 mg PO HS Sleep 02/28/23
mirtazapine 15 mg tablet 15 mg PO HS Mental Health/Anxiety 02/28/23
sevelamer HCl 800 mg tablet 1,600 mg PO MEALS Kidney Disease 02/28/23
acetaminophen 325 mg tablet (Tylenol) 650 mg PO Q4HPRN PRN temp>100F 03/27/23
bisacodyl 10 mg rectal suppository (Dulcolax (bisacodyl)) 10 mg [place] DAILYPRN PRN constipation 03/27/23
midodrine 10 mg tablet 10 mg PO TID Blood Pressure 04/13/23
B-complex with vitamin C 1 tab PO DAILY Supplement 05/24/23
acetaminophen 325 mg tablet (Tylenol) 650 mg PO Q6H PRN mild pain 05/24/23
cholecalciferol (vitamin D3) 50 mcg (2,000 unit) tablet 50 mcg PO DAILY Supplement 05/24/23
honey 80 % topical gel (MediHoney (honey)) 1 applic topical QPM apply to sacrum 05/24/23
metoprolol succinate 25 mg tablet,extended release 24 hr 25 mg PO DAILY Heart disease/condition 05/24/23
potassium, sodium phosphates 280 mg-160 mg-250 mg oral powder packet (Phos-NaK) 1 packet PO BID Kidney Disease 05/24/23
Review of Systems
-
A 12 point ROS was completed and negative except as noted: Yes
Psych: Reports Dementia
Physical Exam
Vital Signs
Vital Signs
Temp Pulse Resp BP Pulse Ox
99.4 F 110 18 123/80 100
07/14/23 15:18 07/14/23 18:00 07/14/23 18:00 07/14/23 17:00 07/14/23 14:45
Physical Exam
General: Well Developed, Well Nourished and No Apparent Distress
HEENT: NormoCephalic and Anicteric
Respiratory: Clear; No Wheezes or Rales
Cardiac: S1/S2 and Irregular Rhythm
Skin: Warm, Dry and Other (See HPI)
Neuro: Awake, Alert, No Motor Deficits and Nonfocal/grossly intact
Hematologic/Lymphatic: No Lymphadenopathy
Psych: Calm
Laboratory Results
-
07/14/23 15:46
07/14/23 15:46
Laboratory Results
Total Bilirubin 0.7 mg/dl (0.2-1.3) 07/14/23 15:46
AST 37 U/L (17-59) 07/14/23 15:46
ALT 13 U/L (0-50) 07/14/23 15:46
Alkaline Phosphatase 185 U/L (38-126) H 07/14/23 15:46
Data Reviewed
-
Diagnostic Radiology: Report Reviewed by me
Impression/Plan
-
#Delirium, uncrear source
#Chonic mild pulmonary edema with chronic loculated b/l pleural effusions and underlying parenchymal disease
#Redness around HD cath site
intermittent
can be post-HD
Concerned for early developing infection, will do Bcx and start Abx (Vanc/Zosyn) afterewards. Asked IRAD to eval redness arounf HD cath site
Head CT without acute findings
No meningeal signs
Check Influenza and COVID-19 PCR
#ESRD on HD
MWF
Nephro consult
#New onset Afib
Defer AC to cardiology
Telemetry
Lopressor PRN
#Chronic hypotension
#PAD
#DM type 2 with nephropathy
DM diet, accuchekcs, insulin SS
cont midodrine
cont ASA
#Chronci Alk.phos elebvation
no RUQ pain
follow LFT
DVT ppx hep
FUll code
This encounter required high level of complexity for medical decision making
[2023-07-14 18:57] LABS: COVID-19 Antigen Negative (Negative)
[2023-07-14 22:04] LABS: Glucose - Point of Care 148 mg/dl (70-99)
[2023-07-14] MEDS: LEXAPRO 5 MG PO (22:24)
[2023-07-14] MEDS: PROTONIX 40 MG PO (22:24)
[2023-07-14] MEDS: ProAmatine 10 MG PO (22:25)
[2023-07-14] MEDS: HEPARIN 5000 UNITS SC (22:25)
[2023-07-14] MEDS: REMERON 15 MG PO (22:25)
[2023-07-14] MEDS: ZOSYN 50 IV (22:26)
[2023-07-14] MEDS: VANCOCIN 300 MG IV (23:21)
[2023-07-14] MEDS: VANCOCIN 300 ML IV (23:21)
[2023-07-15 03:32] LABS: Glucose - Point of Care 113 mg/dl (70-99)
[2023-07-15 03:36] VITALS: BP 118/80
[2023-07-15 03:38] VITALS: BMI 22.5
[2023-07-15] MEDS: ZOSYN 50 IV ×3 (06:29→21:25)
[2023-07-15 07:10] VITALS: BP 113/76
[2023-07-15 07:17] LABS: Glucose - Point of Care 91 mg/dl (70-99)
[2023-07-15 08:08] LABS: % Eosinophils 2.7 % (0-6); % Immature Granulocytes 0.4 % (0-0.5); % Lymphocytes 6.8 % (20.5-51.1); % Monocytes 7.1 % (1.7-9.3); Absolute Basophils 0.1 10^3/uL (0-0.2); Absolute Eosinophils 0.2 10^3/uL (0-0.7); Absolute Lymphocytes 0.5 10^3/uL (1.2-3.4); Absolute Monocytes 0.5 10^3/uL (0.1-0.6); Absolute Neutrophils 5.5 10^3/uL (1.4-6.5); Hemoglobin 10.6 g/dL (13.0-18.0); Mean Corp Hgb Conc. 30.3 g/dL (33.0-37.0); Mean Corpuscular Hgb 31.4 pg (27.0-31.0); Mean Corpuscular Volume 103.6 fL (80.0-94.0); Mean Platelet Volume 10.3 fL (7.4-10.4); Nucleated Red Blood Cells % 0 % (-); Platelet Count 231 10^3/uL (130-400); Red Blood Cell Count 3.38 10^6/uL (4.70-6.10); Red Cell Dist. Width 19.1 % (11.5-14.5); White Blood Cell Count 6.8 10^3/uL (4.8-10.8)
[2023-07-15 08:25] LABS: ALT (SGPT) 14 U/L (0-50); AST (SGOT) 34 U/L (17-59); Albumin 2.8 g/dl (3.5-5.0); Alkaline Phosphatase 164 U/L (38-126); Blood Urea Nitrogen 60 mg/dl (9-20); Calcium 8.4 mg/dl (8.4-10.2); Carbon Dioxide 27 mmol/L (22-30); Chloride 103 mmol/L (98-107); Estimated Creatinine Clearance 21 ml/min; Glucose 97 mg/dl (70-99); Potassium 4.6 mmol/L (3.5-5.1); Sodium 140 mmol/L (135-145); Total Bilirubin 0.5 mg/dl (0.2-1.3); Total Protein 5.8 g/dl (6.3-8.2); eGFR 23.68
[2023-07-15 08:54] LABS: TSH Reflex To Free T4 3.55 uIU/ml (0.47-4.68)
[2023-07-15] MEDS: NOVOLOG FLEXPEN-MODERATE RESISTANCE SC ×3 (08:54→14:49)
[2023-07-15] MEDS: LIPITOR 80 MG PO (08:54)
[2023-07-15] MEDS: TOPROL XL 25 MG PO (08:54)
[2023-07-15] MEDS: ProAmatine 10 MG PO ×3 (08:54→17:15)
[2023-07-15] MEDS: LOW STRENGTH ASPIRIN 81 MG PO (08:55)
[2023-07-15] MEDS: PROTONIX 40 MG PO ×2 (08:55→21:24)
[2023-07-15] MEDS: HEPARIN 5000 UNITS SC ×3 (08:55→23:14)
[2023-07-15 09:31] LABS: Glycohemoglobin (HgbA1c) 5.6 % (4.0-5.6)
--- NOTE | 2023-07-15 11:47 | CON.CAR ---
Addendum entered and electronically signed by Joseph Medeiros MD 07/15/23 13:10:
I saw and examined the patient.
The COILER's note was reviewed and I agree with the note.
Comment: 78 y/o pt with ESRD on HD, ICM EF 25-30, CAD, PAC's, mod MR, who was transferred from intermediate for change in mental status and hypoxia. Pt unable to clearly answer questions� about transfer. He denies CP, SOB or palpitations currently.
Cardiology consulted for possible AF on tele.
- tele and ECG show SR with intermittent Mobitz type 1 HB, PACS, but have not seen AF
- he denies symptoms
- Avoid AV erickson agents, does not need AC
We will sign off; please call with questions/concerns.
Original Note:
Consultation
Consultation Request
Date/Time Consultation Requested: 07/15/2023 0800
Date/Time Consultation Performed: 07/15/2023 1030
Requesting Provider: DR. Carranza
Performing Provider: DR. Medeiros
Reason for Consultation: possbile AF
Medical History
-
Chief Complaint: possible AF
History of Present Illness:
78 y/o pt with ESRD on HD, ICM EF 25-30, CAD, PAC's, mod MR, who was transferred from intermediate for change in mental status and hypoxia. Pt unable to clearly answer questions about transfer. He denies CP, SOB or palpitations currently.
Cardiology consulted for possible AF on tele.
Past Medical History
Past Medical History: Other (ESRD on HD, L AKA, R BKA, chronic hypotension, BPH, anemia, HFrEF, mod mR , CAD , PAC's, SVT )
Past Surgical History: Other ( BKA, AKA, PCI 11/2021)
Social History
Tobacco: Non-Smoker
Alcohol: None
Drug: None
Personal:
Living: Skilled Nursing
Family History
Family History: Unable to Obtain
Allergies / Home Medications
Allergy/AdvReac Type Severity Reaction Status Date / Time
No Known Allergies Allergy Verified 07/03/23 11:08
Medication Instructions Recorded Confirmed Type
tamsulosin 0.4 mg capsule 0.4 mg PO HS Urinary issue 08/01/14 07/14/23 History
atorvastatin 80 mg tablet 80 mg PO DAILY High cholesterol 08/11/14 07/14/23 History
escitalopram oxalate 5 mg tablet 5 mg PO HS Mental Health/Anxiety 12/18/14 07/14/23 History
aspirin 81 mg chewable tablet 81 mg PO DAILY Blood clot 07/25/22 07/14/23 History
prevention/tx
pantoprazole 40 mg tablet,delayed 40 mg PO BID Gastrointestinal issue 07/25/22 07/14/23 History
release
docusate sodium 100 mg capsule 100 mg PO BID Constipation 02/28/23 07/14/23 History
melatonin 3 mg tablet 6 mg PO HS Sleep 02/28/23 07/14/23 History
mirtazapine 15 mg tablet 15 mg PO HS Mental Health/Anxiety 02/28/23 07/14/23 History
sevelamer HCl 800 mg tablet 1,600 mg PO MEALS Kidney Disease 02/28/23 07/14/23 History
acetaminophen 325 mg tablet 650 mg PO Q4HPRN PRN temp>100F 03/27/23 07/14/23 History
(Tylenol)
bisacodyl 10 mg rectal suppository 10 mg [place] DAILYPRN PRN constipation 03/27/23 07/14/23 History
(Dulcolax (bisacodyl))
midodrine 10 mg tablet 10 mg PO TID Blood Pressure 04/13/23 07/14/23 History
B-complex with vitamin C 1 tab PO DAILY Supplement 05/24/23 07/14/23 History
acetaminophen 325 mg tablet 650 mg PO Q6H PRN mild pain 05/24/23 07/14/23 History
(Tylenol)
cholecalciferol (vitamin D3) 50 50 mcg PO DAILY Supplement 05/24/23 07/14/23 History
mcg (2,000 unit) tablet
honey 80 % topical gel (MediHoney 1 applic topical QPM apply to 05/24/23 07/14/23 History
(honey)) sacrum
metoprolol succinate 25 mg 25 mg PO DAILY Heart 05/24/23 07/14/23 History
tablet,extended release 24 hr disease/condition
potassium, sodium phosphates 280 1 packet PO BID Kidney Disease 05/24/23 07/14/23 History
mg-160 mg-250 mg oral powder
packet (Phos-NaK)
Review of Systems
-
History Source: Patient (limited as pt was yelling at me )
Constitutional: No Symptoms
Respiratory: No Symptoms
Cardiac: No Symptoms
Physical Exam
Vital Signs
Temp Pulse Resp BP Pulse Ox
97.7 F 86 18 113/76 100
07/15/23 07:10 07/15/23 08:54 07/15/23 07:10 07/15/23 08:54 07/15/23 07:10
Lab Results
07/15/23 07:40
07/15/23 07:40
Physical Exam
General: No Apparent Distress and Comfortable
HEENT: Normocephalic and Anicteric
Respiratory: Clear
Cardiac: S1/S2 and Regular Rhythm
Breast: Deferred by me
Musculoskeletal: No Edema
Skin: Warm and Dry
Neuro: Awake and Alert (agitated with questions )
Impression / Plan
-
PAC's/NSR
-consult for AF. No AF noted on tele
-occ PAC's, sinus arrhythmia, possible mobitz II at times
-asymptomatic- monitor tele
-in past pt noted to have low grade atrial arrhythmias without AF
CAD:
-denies angina
ICM:
-echo 03/27/23: EF 25-30,Hypokinesis of the mid to apical septum, mid to apical anterior segments,andapex. mod MR, mild/mod TR, PASP 51mmhg
-GDMT limited secondary to hypotension
ESRD: HD
chronic hypotension: midodrine
Data Reviewed
-
EKG: Tracing Personally Visualized and interpreted (07/14/[address] 116 bpm, 1 st degree AVB )
Radiology: Report Reviewed by me (CXR 07/14/23 : Cardiomegaly with elevated pulmonary venous pressure/mild pulmonary edema, moderate bilateral partially loculated pleural effusions and underlying parenchymal airspace disease in the lower lungs
bilaterally consistent with atelectasis versus pneumonia and not significantly changed comp)
Medical Tests (Nuc Med, Echo etc): Report Reviewed by me (Echo 03/27/23 Cardiomegaly with elevated pulmonary venous pressure/mild pulmonary edema, moderate bilateral partially loculated pleural effusions and underlying parenchymal airspace disease
in the lower lungs bilaterally consistent with atelectasis versus pneumonia and not significantly changed comp)
Labs: Labs Reviewed by me and Discussed with Physician
Old Records: Reviewed (Previous hospital records )
--- NOTE | 2023-07-15 11:51 | W.PN.HOSP.TC ---
Today's Communication/Plan
-
follow cultures and other delirium workup
low rate IVF while not eating
Assessment / Plan
Assessment / Plan
Assessment:
Delirium of unclear etiology
- CT head negative
- med list reviewed, no new changes. Hold Mirtazapine for now
- check B12, Folate, TSH/T4, Ammonia level
- follow infectious workup
- ? incomplete HD sessions recently - details are unclear
ESRD on HD
- M/W/F
- Nephrology consulted
- RCW cath with redness mildly surrounding skin - empiric Abx pending cultures
Arrhythmia with PACs, but in NSR
- possible Mobitz type 1 vs 2 at times
- asymptomatic
Chronic mild pulmonary edema with chronic loculated b/l pleural effusions and underlying parenchymal disease
- monitor
- volume management with HD
Chronic hypotension
- continue midodrine
PAD
- continue ASA
DM type 2 with nephropathy
- continue accu-checks SSI
- IV dextrose low rate while not eating
DVT ppx: Heparin
Code: Full
Anticipated Discharge: 24 - 48 hours
Subjective/Interval History
-
Date of Service: July 15, 2023
no acute overnight events
patient resting, remains somewhat confused, per staff sometimes agitated
Objective Data
-
Labs:
Laboratory Results
07/15/23
07:40
WBC 6.8
Hgb 10.6 L
Hct 35.0 L
Plt Count 231
Sodium 140
Potassium 4.6
Chloride 103
Carbon Dioxide 27
BUN 60 H
Creatinine 2.7 H
Glucose 97
Calcium 8.4
Total Bilirubin 0.5
AST 34
ALT 14
Alkaline Phosphatase 164 H
Vital Signs:
Vital Signs
Temp Pulse Resp BP Pulse Ox
97.7 F 86 18 113/76 100
07/15/23 07:10 07/15/23 08:54 07/15/23 07:10 07/15/23 08:54 07/15/23 07:10
I&O
07/14/23 07/15/23 07/16/23
06:59 06:59 06:59
Intake Total 400 / 400
Balance 400 / 400
Physical Exam
-
General: No Apparent Distress and Appears Chronically Ill
HEENT: Normocephalic and Atraumatic
Respiratory: Negative Wheezes or Rales
Cardiac: Regular Rhythm and S1/S2
GI: Soft
Skin: IV Access / Catheter Site (RCW HD cath, slight redness around upper right area, no tenderness when palpated)
Neuro: Awake and Alert
Psych: Confused
Data Reviewed
-
Total Time Spent with Patient (in minutes): 45
Labs: Labs Reviewed by me
[2023-07-15 11:55] VITALS: BP 122/70
[2023-07-15 11:55] LABS: Glucose - Point of Care 75 mg/dl (70-99)
--- NOTE | 2023-07-15 12:46 | PHA.VAN.IN ---
Addendum entered and electronically signed by Felix Alvarez, [facility] 07/15/23 15:16:
Random level 27.9 drawn about 14 hours after vancomycin 1500mg loading dose given yesterday. Will recheck random level on Monday07/17/23 at 06:00 priior to HD
Original Note:
Assessment
- Assessment
Renal Function: Patient has ESRD, on chronic Hemodialysis
Hemodialysis Schedule: MWF
Maximum Temperature: 99.4 07/14/23 at 15:18
Minimum Temperature: 97.7 07/15/23 at 11:55
Concomitant Antimicrobials: Piperacillin-tazobactam
History of MRSA nares positive
- Previous Dosing Experience
Previous Regimen: Dose by levels
Date of Regimen: 03/2023
Plan
- Plan
Initial / Loading Dose: Vancomcyin 1500mg x 1 dose given 07/14/23 at 23:21
Maintenance Regimen: Dose by levels
Monitoring: Will order a random level for today to see how clearing
Pharmacokinetics Vancomycin I
- -
Patient Age: 78
Patient Sex: Male
Vancomycin Day #: 1
Indication: Bacteremia
Requesting Provider: Dr Durga Carranza
Pertinent Antimicrobial Allergies:
No antibiotic allergies
Height / Weight:
Height 5 ft 6 in
Actual Weight 63.276 kg
IBW in k.8
Pertinent Past Medical History: ESRD on HD, L AKA, R BKA, R tunneled IJ for HD placed 2 wks ago, DM
- Vital Signs / Lab Results
Temp Pulse Resp BP Pulse Ox
97.7 F 86 18 122/70 93
07/15/23 11:55 07/15/23 12:08 07/15/23 11:55 07/15/23 12:08 07/15/23 11:55
Lab Results - Hematology
07/14/23 07/15/23
15:46 07:40
WBC 6.8 6.8
Lab Results - Chemistry
07/14/23 07/15/23
15:46 07:40
BUN 45 H 60 H
Creatinine 2.0 H 2.7 H
Estimated Creat Clear 21
Albumin 3.3 L 2.8 L
Microbiology Results
07/14/23 18:34 Influenza Types A & B (ANDREW) - Final
Nasal Swab Negative for Influenza A & B, NAAT
Negative results must be combined with clinical observations
and patient history.
Nucleic Acid Amplification test (NAAT)performed on the
[employer] platform.
[2023-07-15 13:58] LABS: Vancomycin Random 27.9 ug/ml
[2023-07-15 14:38] LABS: Glucose - Point of Care 145 mg/dl (70-99)
--- NOTE | 2023-07-15 14:53 | W.CON.NEPH ---
Addendum entered and electronically signed by Eve Cuenca MD 07/15/23 15:21:
He is on neurtaphos and renvela -hold both for now
check phos level in am
Original Note:
Consultation
-
Date/Time Consultation Requested: 07/14/237
Date/Time Consultation Performed: 07/15/23 1400
Requesting Provider: Omkar Polo
Performing Provider: Eve Gallardo
Reason for Consultation: ESRD
Medical History
-
Chief Complaint: AMS
History of Present Illness:
78yo M with PMHx of ESRD on HD MEF at [facility], had clogged R AVF last admit early June and now with R IJ tunneled HD cath (placed 2 weeks ago), DM with out meds, HFrEF, PAD, s/p L AKA, R BKA with phantom pains, chronic hypotension on
midodrine, BPH, Hx of HTN on BB , hyperphosphatemia on renvela and also on neurta phos?, HLD on statin who was sent from SNF with worsening confusion, asking to talk to his , who is for years. reprotedly he had similar episodes on and off
before. Concern for small red bump upon insertion of HD catheter into IJ. He is with out fever, no cp or sob. No abd pain or n/v. EKG reportedly with concern of Afib on admit however cards reviewed and felt no A fib other than AV block.
Past Medical History
end-stage renal disease on hemodialysis Monday, Monday, Monday
CAD status post stent
HFrEF
moderate mitral regurgitation
mild to moderate tricuspid regurgitation
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
chronic hypotension on midodrine
bladder cancer
GERD
hypercholesteremia
diabetes
diabetic neuropathy
bladder cancer status post TURBT
BPH
anemia of chronic disease
legal blindness
�anxiety/depression
Past Surgical History: Other (1. Vasectomy. 2. TURP. 3. Femoral artery stenting, Rt UE AVF )
Social History
Tobacco: Former Smoker
Alcohol: None
Drug: None
Living: [facility]
Family History
no CKD
Family History: Not Pertinent
Allergies / Home Medications
Allergy/AdvReac Type Severity Reaction Status Date / Time
No Known Allergies Allergy Verified 07/03/23 11:08
Medication Instructions Recorded Confirmed Type
tamsulosin 0.4 mg capsule 0.4 mg PO HS Urinary issue 08/01/14 07/14/23 History
atorvastatin 80 mg tablet 80 mg PO DAILY High cholesterol 08/11/14 07/14/23 History
escitalopram oxalate 5 mg tablet 5 mg PO HS Mental Health/Anxiety 12/18/14 07/14/23 History
aspirin 81 mg chewable tablet 81 mg PO DAILY Blood clot 07/25/22 07/14/23 History
prevention/tx
pantoprazole 40 mg tablet,delayed 40 mg PO BID Gastrointestinal issue 07/25/22 07/14/23 History
release
docusate sodium 100 mg capsule 100 mg PO BID Constipation 02/28/23 07/14/23 History
melatonin 3 mg tablet 6 mg PO HS Sleep 02/28/23 07/14/23 History
mirtazapine 15 mg tablet 15 mg PO HS Mental Health/Anxiety 02/28/23 07/14/23 History
sevelamer HCl 800 mg tablet 1,600 mg PO MEALS Kidney Disease 02/28/23 07/14/23 History
acetaminophen 325 mg tablet 650 mg PO Q4HPRN PRN temp>100F 03/27/23 07/14/23 History
(Tylenol)
bisacodyl 10 mg rectal suppository 10 mg [place] DAILYPRN PRN constipation 03/27/23 07/14/23 History
(Dulcolax (bisacodyl))
midodrine 10 mg tablet 10 mg PO TID Blood Pressure 04/13/23 07/14/23 History
B-complex with vitamin C 1 tab PO DAILY Supplement 05/24/23 07/14/23 History
acetaminophen 325 mg tablet 650 mg PO Q6H PRN mild pain 05/24/23 07/14/23 History
(Tylenol)
cholecalciferol (vitamin D3) 50 50 mcg PO DAILY Supplement 05/24/23 07/14/23 History
mcg (2,000 unit) tablet
honey 80 % topical gel (MediHoney 1 applic topical QPM apply to 05/24/23 07/14/23 History
(honey)) sacrum
metoprolol succinate 25 mg 25 mg PO DAILY Heart 05/24/23 07/14/23 History
tablet,extended release 24 hr disease/condition
potassium, sodium phosphates 280 1 packet PO BID Kidney Disease 05/24/23 07/14/23 History
mg-160 mg-250 mg oral powder
packet (Phos-NaK)
Review of Systems
-
All compelte 12 point ROS have been inquired and found negative other than stated in HPI
Physical Exam
Vital Signs
Vital Signs
Temp Pulse Resp BP Pulse Ox
97.7 F 86 18 122/70 93
07/15/23 11:55 07/15/23 12:08 07/15/23 11:55 07/15/23 12:08 07/15/23 11:55
Lab Results
WBC 6.8 10^3/uL (4.8-10.8) 07/15/23 07:40
RBC 3.38 10^6/uL (4.70-6.10) L 07/15/23 07:40
Hgb 10.6 g/dL (13.0-18.0) L 07/15/23 07:40
Hct 35.0 % (39.0-52.0) L 07/15/23 07:40
Plt Count 231 10^3/uL (130-400) 07/15/23 07:40
Sodium 140 mmol/L (135-145) 07/15/23 07:40
Potassium 4.6 mmol/L (3.5-5.1) 07/15/23 07:40
Chloride 103 mmol/L (98-107) 07/15/23 07:40
Carbon Dioxide 27 mmol/L (22-30) 07/15/23 07:40
BUN 60 mg/dl (9-20) H 07/15/23 07:40
Creatinine 2.7 mg/dL (0.7-1.3) H 07/15/23 07:40
eGFR 23.68 07/15/23 07:40
Glucose 97 mg/dl (70-99) 07/15/23 07:40
Calcium 8.4 mg/dl (8.4-10.2) 07/15/23 07:40
Albumin 2.8 g/dl (3.5-5.0) L 07/15/23 07:40
CXR
INDICATION: Shortness of breath
Comparison examination: 05/25/2023
FINDINGS: A single frontal radiograph of the chest was obtained at 3:25 PM on 07/14/2023.
There is mild cardiomegaly.
There is cephalization of the pulmonary vasculature suggesting elevated pulmonary venous pressures.
There are moderate size partially loculated bilateral pleural effusions similar in volume to that seen on the prior study with underlying parenchymal airspace disease in the lower portions of both lungs which may be pneumonia or atelectasis
There is a double-lumen central venous catheter and placed a right internal jugular access with its tip extending to the cavoatrial junction
IMPRESSION:
Cardiomegaly with elevated pulmonary venous pressure/mild pulmonary edema, moderate bilateral partially loculated pleural effusions and underlying parenchymal airspace disease in the lower lungs bilaterally consistent with atelectasis versus
pneumonia and not significantly changed compared with the prior study
Electronically signed by Rashaun Maria MD 07/14/2023 4:[address] head non acute
Physical Exam
General: Awake, Alert, Oriented, No Distress and Nontoxic
HEENT: EOMI and Anicteric
Respiratory: Other (coarse, decreased )
Cardiac: S1/S2 and Regular Rate/Rhythm
Abdomen: Soft, Nontender and Nondistended
Musculoskeletal: Other (Rt BKA, left AKA stump )
Skin: No Rash
Neuro: Nonfocal/Grossly Intact
Psych: Mood/afflect pleasant and Appropriate
Assessment/Plan
-
IMP:
Delirium
Arrhythmia with PACs, but in NSR
Chronic mild pulmonary edema with chronic loculated b/l pleural effusions and underlying parenchymal disease
Right IJ HD catheter
HFrEF 25-30%, DD stage2
Bilateral pleural effusions
ESRD on HD-MWF RUE AVG [place]
HTN history with midodrine-dependent hypotension
HLD
History CAD with NM
Ex-smoker
DM 2-diet controlled, DM nephropathy
PAD right BKA and left AKA
GERD
Chronic anemia, multifactorial
Depression
BPH
Legally blind
History bladder cancer
Hyperphosphatemia
clotted AVG s/p declot
Plan:
A/w AMS from NH
reportedly had HD yesterday
metabolic parameters acceptable
CXR noted chr mild pulm edema and pt is very comfortable in supine
no need of HD, plan on Monday
CVC site noted, little erythema likely skin irritation, await for cx
abx per primary
BP stable on midodrine
pt is eating now, d/c IVF
d/w nursing and pt
Data Reviewed
-
Radiology: Report Reviewed by me
Labs: Labs Reviewed by me
Old Records: Reviewed
[2023-07-15 15:10] VITALS: BP 104/60
--- NOTE | 2023-07-15 16:29 | CM ---
Patient seen at bedside. Patient LTC at [facility]. CM spoke with Isela from Admissions and confirmed patient status as LTC. Awaiting update with functional status. CM will continue to follow for discharge planning needs.
Plan; return to SNF;
[2023-07-15 19:23] VITALS: BP 112/76
[2023-07-15 21:11] LABS: Phosphorus 3.5 mg/dl (2.5-4.5)
[2023-07-15] MEDS: LEXAPRO 5 MG PO (21:24)
[2023-07-15 21:30] LABS: Glucose - Point of Care 196 mg/dl (70-99)
[2023-07-15 23:24] VITALS: BP 116/80
[2023-07-16 03:13] VITALS: BP 116/80
[2023-07-16 03:47] LABS: Glucose - Point of Care 129 mg/dl (70-99)
--- NOTE | 2023-07-16 04:39 | PTCARENOTE ---
Patient noted to be tachypneic @ times w/ respiratory rate elevated in mid to upper 20s at times. Patient's POX 94-99% on 2L NC. Patient offering no complaints. Respiratory notified and came to bedside to assess patient. MANAGER REPORT notified. No new orders
at this time.
[2023-07-16] MEDS: ZOSYN 50 IV ×3 (05:17→21:25)
[2023-07-16 05:37] VITALS: BMI 22.2
[2023-07-16 07:15] VITALS: BP 110/78
[2023-07-16 07:23] LABS: Glucose - Point of Care 125 mg/dl (70-99)
[2023-07-16 07:43] LABS: Hemoglobin 10.8 g/dL (13.0-18.0); Mean Corpuscular Hgb 30.9 pg (27.0-31.0); Mean Corpuscular Volume 102.9 fL (80.0-94.0); Mean Platelet Volume 10.2 fL (7.4-10.4); Platelet Count 244 10^3/uL (130-400); Red Cell Dist. Width 19.3 % (11.5-14.5); White Blood Cell Count 7.9 10^3/uL (4.8-10.8)
[2023-07-16 07:56] LABS: Ammonia < 9 umol/L (9-30)
[2023-07-16 08:11] LABS: ALT (SGPT) 13 U/L (0-50); AST (SGOT) 30 U/L (17-59); Albumin 3.1 g/dl (3.5-5.0); Alkaline Phosphatase 159 U/L (38-126); Blood Urea Nitrogen 77 mg/dl (9-20); Calcium 8.3 mg/dl (8.4-10.2); Carbon Dioxide 26 mmol/L (22-30); Chloride 100 mmol/L (98-107); Estimated Creatinine Clearance 17 ml/min; Glucose 127 mg/dl (70-99); Potassium 4.8 mmol/L (3.5-5.1); Sodium 141 mmol/L (135-145); Total Bilirubin 0.6 mg/dl (0.2-1.3); Total Protein 6.1 g/dl (6.3-8.2); eGFR 18.62
[2023-07-16 08:36] LABS: TSH Reflex To Free T4 5.25 uIU/ml (0.47-4.68)
[2023-07-16] MEDS: NOVOLOG FLEXPEN-MODERATE RESISTANCE SC ×2 (08:59→12:33)
[2023-07-16] MEDS: PROTONIX 40 MG PO ×2 (09:00→21:25)
[2023-07-16] MEDS: HEPARIN 5000 UNITS SC ×3 (09:00→23:55)
[2023-07-16] MEDS: LOW STRENGTH ASPIRIN 81 MG PO (09:00)
[2023-07-16] MEDS: LIPITOR 80 MG PO (09:00)
[2023-07-16] MEDS: TOPROL XL 25 MG PO (09:00)
[2023-07-16] MEDS: ProAmatine 10 MG PO ×3 (09:00→17:41)
[2023-07-16 09:06] LABS: Free T4 0.91 ng/dl (0.78-2.19)
[2023-07-16 09:12] LABS: Folate > 20.0 ng/ml (2.76-20); Vitamin B12 876 pg/ml (239-931)
[2023-07-16 11:20] VITALS: BP 108/75
[2023-07-16 11:49] LABS: Glucose - Point of Care 144 mg/dl (70-99)
--- NOTE | 2023-07-16 12:52 | W.PN.HOSP.TC ---
Today's Communication/Plan
-
Empiric Abx pending cultures
HD tomorrow
Assessment / Plan
Assessment / Plan
Assessment:
Delirium of unclear etiology
- CT head negative
- med list reviewed, no new changes. Hold Mirtazapine for now
- B12, Folate, TSH/T4, Ammonia levels all normal
- follow infectious workup
ESRD on HD
- M/W/F
- Nephrology following
- RCW cath with redness mildly surrounding skin - empiric Abx pending cultures. If Bcx negative at 48 hours cristina, can de-escalate to likely PO abx for soft tissue infection infection near CVC site. in that case, probably CVC cath can stay in, will
d/w Renal.
Arrhythmia with PACs, but in NSR
- possible Mobitz type 1 vs 2 at times
- asymptomatic
- Cards signed off
Chronic mild pulmonary edema with chronic loculated b/l pleural effusions and underlying parenchymal disease
- monitor
- volume management with HD
Chronic hypotension
- continue midodrine
PAD
- continue ASA
DM type 2 with nephropathy
- continue accu-checks SSI
DVT ppx: Heparin
Code: Full
Anticipated Discharge: Within 24 hours
Subjective/Interval History
-
Date of Service: July 16, 2023
no complaints currently, more alert
Objective Data
-
Labs:
Laboratory Results
07/16/23
07:34
WBC 7.9
Hgb 10.8 L
Hct 36.0 L
Plt Count 244
Sodium 141
Potassium 4.8
Chloride 100
Carbon Dioxide 26
BUN 77 H
Creatinine 3.3 H
Glucose 127 H
Calcium 8.3 L
Total Bilirubin 0.6
AST 30
ALT 13
Alkaline Phosphatase 159 H
Vital Signs:
Vital Signs
Temp Pulse Resp BP Pulse Ox
98.2 F 109 18 108/75 95
07/16/23 11:20 07/16/23 11:20 07/16/23 11:20 07/16/23 11:20 07/16/23 11:20
I&O
07/15/23 07/16/23 07/17/23
06:59 06:59 06:59
Intake Total 400 / 400 1660 / 1660
Balance 400 / 400 1660 / 1660
Physical Exam
-
General: No Apparent Distress
HEENT: Normocephalic and Atraumatic
Respiratory: Negative Wheezes or Rales
Cardiac: Regular Rhythm and S1/S2
GI: Soft and Nontender
Musculoskeletal: No Edema
Neuro: AO x 3
Hematologic / Lymphatic: No Lymphadenopathy
Psych: Calm
Data Reviewed
-
Total Time Spent with Patient (in minutes): 42
Labs: Labs Reviewed by me
--- NOTE | 2023-07-16 13:08 | W.PN.NEPH.PH ---
Today's Communication / Plan
-
HD tomorrow
Assessment/Plan
-
IMP:
Delirium
Arrhythmia with PACs, but in NSR
Chronic mild pulmonary edema with chronic loculated b/l pleural effusions and underlying parenchymal disease
Right IJ HD catheter
HFrEF 25-30%, DD stage2
Bilateral pleural effusions
ESRD on HD-MWF RUE AVG [place]
HTN history with midodrine-dependent hypotension
HLD
History CAD with SC
Ex-smoker
DM 2-diet controlled, DM nephropathy
PAD right BKA and left AKA
GERD
Chronic anemia, multifactorial
Depression
BPH
Legally blind
History bladder cancer
Hyperphosphatemia
clotted AVG s/p declot
Plan:
A/w AMS from NH
await bld cx to finalize
CVC site looks good no sign of infection
little erythema likely skin irritation
abx per primary, ok for po abx at d/c
BP stable on midodrine
HD tomorrow
d/w primary and pt
-
-
Date of Service: July 16, 2023
CC / HPI / ROS
-
Chief Complaint:
ESRD
History of Present Illness:
BP stable , no fever
bld cx neg D1
Review of Systems:
no cp or soib
feels at baseline
Labs
-
Labs:
WBC 7.9 10^3/uL (4.8-10.8) 07/16/23 07:34
RBC 3.50 10^6/uL (4.70-6.10) L 07/16/23 07:34
Hgb 10.8 g/dL (13.0-18.0) L 07/16/23 07:34
Hct 36.0 % (39.0-52.0) L 07/16/23 07:34
Plt Count 244 10^3/uL (130-400) 07/16/23 07:34
Sodium 141 mmol/L (135-145) 07/16/23 07:34
Potassium 4.8 mmol/L (3.5-5.1) 07/16/23 07:34
Chloride 100 mmol/L (98-107) 07/16/23 07:34
Carbon Dioxide 26 mmol/L (22-30) 07/16/23 07:34
BUN 77 mg/dl (9-20) H 07/16/23 07:34
Creatinine 3.3 mg/dL (0.7-1.3) H 07/16/23 07:34
eGFR 18.62 07/16/23 07:34
Glucose 127 mg/dl (70-99) H 07/16/23 07:34
Calcium 8.3 mg/dl (8.4-10.2) L 07/16/23 07:34
Phosphorus 3.5 mg/dl (2.5-4.5) 07/15/23 07:40
Albumin 3.1 g/dl (3.5-5.0) L 07/16/23 07:34
Physical Exam
-
Vital Signs:
Vital Signs
Temp Pulse Resp BP Pulse Ox
98.2 F 109 18 108/75 95
07/16/23 11:20 07/16/23 11:20 07/16/23 11:20 07/16/23 11:20 07/16/23 11:20
Cardiovascular:: Regular rate and rhythm
Respiratory:: Bilateral: CTA
Lung Excursion:: Normal
Abdomen:: Nontender and Soft
Gonzalez Catheter: No
Other Findings::
rt BKA, left AKA
--- NOTE | 2023-07-16 15:14 | PHA.VAN.FU ---
Vancomycin Assessment / Plan
- Assessment
Hemodialysis Schedule: MWF
WBC's are: Trending Up (6.8>7.9)
In the past 24 hrs, patient has been: Afebrile
Concomitant Antimicrobials: Piperacillin-tazobactam
- Assessment - Therapeutic Drug Monitoring
Random Level: 27.9 on 07/15/23 drawn about 14 hrs after 1500mg loading dose
- Dosing Plan
Dosing by Level: Hold off on dosing today (Dosing on Hemodialysis days)
- Monitoring Plan
Random Level: Ordered for 07/17/23 at 06:00
- Follow Up
Pharmacy will continue to follow.
Vancomycin Follow UP
- -
Patient Age: 78
Patient Sex: Male
Vancomycin Day #: 2
Indication: Bacteremia
Requesting Provider: Dr Durga Carranza
Pertinent Antimicrobial Allergies:
No antibiotic allergies
Height / Weight:
Height 5 ft 6 in
Actual Weight 62.369 kg
IBW in k.8
Pertinent Past Medical History: ESRD on HD, L AKA, R BKA, R tunneled IJ for HD placed 2 wks ago, DM
- Vital Signs / Lab Results
Temp Pulse Resp BP Pulse Ox
98.2 F 109 18 108/75 95
07/16/23 11:20 07/16/23 11:20 07/16/23 11:20 07/16/23 11:20 07/16/23 11:20
Lab Results - Hematology
07/14/23 07/15/23 07/16/23
15:46 07:40 07:34
WBC 6.8 6.8 7.9
Lab Results - Chemistry
07/14/23 07/15/23 07/16/23
15:46 07:40 07:34
BUN 45 H 60 H 77 H
Creatinine 2.0 H 2.7 H 3.3 H
Estimated Creat Clear 17
Albumin 3.3 L 2.8 L 3.1 L
Microbiology Results
07/14/23 21:04 Blood Culture - Preliminary
Blood/Venous No Growth in 24 hours- Final report to follow
07/14/23 20:15 Blood Culture - Preliminary
Blood/Venous No Growth in 24 hours- Final report to follow
07/14/23 18:34 Influenza Types A & B (ANDREW) - Final
Nasal Swab Negative for Influenza A & B, NAAT
Negative results must be combined with clinical observations
and patient history.
Nucleic Acid Amplification test (NAAT)performed on the
[employer] platform.
Therapeutic Drug Monitoring
Random Vancomycin 27.9 ug/ml 07/15/23 13:05
--- NOTE | 2023-07-16 16:21 | PTCARENOTE ---
pt refused moth care, he states he has not many teeth in his mouth and not interested in mouth care. Nurse educated pt in the importance of mouth care.
[2023-07-16 16:54] LABS: Glucose - Point of Care 221 mg/dl (70-99)
[2023-07-16] MEDS: NOVOLOG FLEXPEN-MODERATE RESISTANCE 3 UNITS SC (17:43)
[2023-07-16 19:38] VITALS: BP 110/74
[2023-07-16] MEDS: LEXAPRO 5 MG PO (21:25)
[2023-07-16 21:31] LABS: Glucose - Point of Care 127 mg/dl (70-99)
[2023-07-16 23:30] VITALS: BP 114/72
[2023-07-17] VITALS (7 sets, daily range): BP systolic 114–136; BP diastolic 72–88; BMI 22.4
[2023-07-17] MEDS: ZOSYN 50 IV ×3 (05:12→21:18)
--- NOTE | 2023-07-17 06:36 | W.PN.HOSP.TC ---
Today's Communication/Plan
-
HD as per Nephro
cont empiric abx
follow cultures
glycemic control
midodrine bp support with holding parameters
Assessment / Plan
Assessment / Plan
Physical Exam
General: No Apparent Distress
HEENT: Normocephalic and Atraumatic
Respiratory: Negative Wheezes or Rales
Cardiac: Regular Rhythm and S1/S2
GI: Soft and Nontender
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
Neuro: AO x 3 some confusion noted later in the day, asking to be repositioned for dinner that has not arrived yet, accepts redirection however.
Hematologic / Lymphatic: No Lymphadenopathy
Psych: Calm
Assessment:
Delirium of unclear etiology
- CT head negative
- med list reviewed, no new changes. Hold Mirtazapine for now
- B12, Folate, TSH/T4, Ammonia levels all normal
- follow infectious workup Cultures NGTD
ESRD on HD
- M/W/F
- Nephrology following
- RCW cath with redness mildly surrounding skin since resolved- empiric Abx pending cultures
Arrhythmia with PACs, but in NSR
- possible Mobitz type 1 vs 2 at times
- asymptomatic
- Cards signed off
Chronic mild pulmonary edema with chronic loculated b/l pleural effusions and underlying parenchymal disease
- monitor
- volume management with HD
-nasal cannula supplementation prn
Chronic hypotension
- continue midodrine
PAD
- continue ASA
DM type 2 with nephropathy
- continue accu-checks SSI
DVT ppx: Heparin
Code: Full
I spent a total of 53 minutes with the patient or on the floor. More than 50% of this time involved counseling and coordination of care.
Anticipated Discharge: 24 - 48 hours
Subjective/Interval History
-
Date of Service: July 17, 2023
no acute distress appears comfortable at this time. Some confusion noted towards the end of day, asking to be repositioned for dinner thinking that his food has already been brought in, when it has not. Accepts redirection however.
Objective Data
-
Labs:
Laboratory Results
07/17/23
06:00
WBC Pending
Hgb Pending
Hct Pending
Plt Count Pending
Sodium Pending
Potassium Pending
Chloride Pending
Carbon Dioxide Pending
BUN Pending
Creatinine Pending
Glucose Pending
Calcium Pending
Total Bilirubin Pending
AST Pending
ALT Pending
Alkaline Phosphatase Pending
Vital Signs:
Vital Signs
Temp Pulse Resp BP Pulse Ox
97.4 F 105 18 118/81 97
07/17/23 03:38 07/17/23 03:38 07/17/23 03:38 07/17/23 03:38 07/17/23 03:38
I&O
07/15/23 07/16/23 07/17/23
06:59 06:59 06:59
Intake Total 400 / 400 1660 / 1660 540 / 540
Balance 400 / 400 1660 / 1660 540 / 540
[2023-07-17 07:15] LABS: Glucose - Point of Care 106 mg/dl (70-99)
[2023-07-17] MEDS: NOVOLOG FLEXPEN-MODERATE RESISTANCE SC ×2 (08:53→11:52)
[2023-07-17] MEDS: ProAmatine 10 MG PO ×3 (08:54→17:57)
[2023-07-17] MEDS: TOPROL XL 25 MG PO (08:54)
[2023-07-17] MEDS: HEPARIN 5000 UNITS SC ×2 (08:55→15:46)
[2023-07-17] MEDS: LOW STRENGTH ASPIRIN 81 MG PO (08:55)
[2023-07-17] MEDS: LIPITOR 80 MG PO (08:55)
[2023-07-17] MEDS: PROTONIX 40 MG PO ×2 (08:55→21:17)
--- NOTE | 2023-07-17 10:10 | WOUNDNOTE ---
WON RN note: Patient admitted with change in mental status, end stage renal disease.
See H&P for complete history. From [facility].
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
Wound Location and type/assessment: Patient known to service, last seen 05/25/23 for healing sacral stage 2 PI. Admitted with same stage 2 sacral PI that is chrome cleaner compared to previous picture, same size. Turned patient with assist from nurse,
patient also assisted. Nurse reports patient tends to lean to L side while in bed. Stumps intact.
Appetite: Fair
Pressure redistribution devices in place: Versa Care with Accumax, brought in air overlay to be added.
Plan: Changed sacral silicone foam. Pressure ulcer prevention measures reviewed with patient. Nurse will apply air overlay when able, turning schedule. New wounds may develop and current wounds may worsen even with optimal care. JUVE Brian given
update and will follow as needed.
[2023-07-17 11:30] LABS: Glucose - Point of Care 159 mg/dl (70-99)
--- NOTE | 2023-07-17 13:07 | W.PN.NEPH.HD ---
Assessment
-
patient seen on HD
sbp 123 at current u/f
Progress Note - Hemodialysis
-
Date of Service: July 17, 2023
Duration: 45 minutes and 2 hours
Potassium Bath: 2
Calcium Bath: 2.5
Opti-Dialyzer: 160
Ultrafiltration: Other (1.5kg)
Blood Flow: 400
Dialysate Flow: 600
Heparin: 500 times two
EPO: 2K
[2023-07-17 13:09] LABS: Hematocrit 34.8 % (39.0-52.0); Hemoglobin 10.7 g/dL (13.0-18.0); Mean Corp Hgb Conc. 30.7 g/dL (33.0-37.0); Mean Corpuscular Hgb 32.1 pg (27.0-31.0); Mean Corpuscular Volume 104.5 fL (80.0-94.0); Mean Platelet Volume 10.8 fL (7.4-10.4); Platelet Count 258 10^3/uL (130-400); Red Blood Cell Count 3.33 10^6/uL (4.70-6.10); Red Cell Dist. Width 19.7 % (11.5-14.5); White Blood Cell Count 7.1 10^3/uL (4.8-10.8)
[2023-07-17 13:42] LABS: Vancomycin Random 18.8 ug/ml
--- NOTE | 2023-07-17 14:00 | PHA.VAN.FU ---
Vancomycin Assessment / Plan
- Assessment
Hemodialysis Schedule: MWF
Last Hemodialysis performed: today 07/16
WBC's are: WNL
In the past 24 hrs, patient has been: Afebrile
Concomitant Antimicrobials: piperacillin/tazobactam
- Assessment - Therapeutic Drug Monitoring
Random Level: pre-HD = 18.8
- Dosing Plan
Dosing by Level: Re-dose today (Vanc 750mg)
- Monitoring Plan
No level(s) ordered at this time: consider level prior to next HD
- Follow Up
Pharmacy will continue to follow.
Vancomycin Follow UP
- -
Patient Age: 78
Patient Sex: Male
Vancomycin Day #: 3
Indication: Bacteremia
Requesting Provider: Dr Durga Carranza
Pertinent Antimicrobial Allergies:
NKDA
Height / Weight:
Height 5 ft 6 in
Actual Weight 63.004 kg
IBW in k.8
Pertinent Past Medical History: ESRD on HD, L AKA, R BKA, R tunneled IJ for HD placed 2 wks ago, DM
- Vital Signs / Lab Results
Temp Pulse Resp BP Pulse Ox
98.0 F 107 18 114/84 98
07/17/23 11:42 07/17/23 11:44 07/17/23 11:42 07/17/23 11:44 07/17/23 11:42
Lab Results - Hematology
07/14/23 07/15/23 07/16/23
15:46 07:40 07:34
WBC 6.8 6.8 7.9
07/17/23
12:52
WBC 7.1
Lab Results - Chemistry
07/14/23 07/15/23 07/16/23
15:46 07:40 07:34
BUN 45 H 60 H 77 H
Creatinine 2.0 H 2.7 H 3.3 H
Estimated Creat Clear 17
Albumin 3.3 L 2.8 L 3.1 L
Microbiology Results
07/14/23 21:04 Blood Culture - Preliminary
Blood/Venous No Growth in 48 hours- Final report to follow
07/14/23 20:15 Blood Culture - Preliminary
Blood/Venous No Growth in 48 hours- Final report to follow
Therapeutic Drug Monitoring
Random Vancomycin 18.8 ug/ml 07/17/23 12:52
[2023-07-17] MEDS: HEPARIN 500 UNITS IV ×2 (14:17)
[2023-07-17 14:25] LABS: ALT (SGPT) 19 U/L (0-50); AST (SGOT) 33 U/L (17-59); Albumin 3.4 g/dl (3.5-5.0); Alkaline Phosphatase 164 U/L (38-126); Blood Urea Nitrogen 84 mg/dl (9-20); Calcium 8.5 mg/dl (8.4-10.2); Carbon Dioxide 24 mmol/L (22-30); Chloride 103 mmol/L (98-107); Estimated Creatinine Clearance 14 ml/min; Glucose 129 mg/dl (70-99); Potassium 5.2 mmol/L (3.5-5.1); Sodium 139 mmol/L (135-145); Total Bilirubin 0.6 mg/dl (0.2-1.3); Total Protein 6.9 g/dl (6.3-8.2); eGFR 14.78
[2023-07-17] MEDS: VANCOCIN 150 IV (14:27)
[2023-07-17] MEDS: HEPARIN 4300 UNITS INTRACATH (15:03)
[2023-07-17 16:33] LABS: Glucose - Point of Care 190 mg/dl (70-99)
--- NOTE | 2023-07-17 16:35 | CM ---
Discharge plan of care: Return to [facility] for resumption of LTC.
[2023-07-17] MEDS: NOVOLOG FLEXPEN-MODERATE RESISTANCE 1 UNITS SC (17:54)
[2023-07-17] MEDS: LEXAPRO 5 MG PO (21:17)
[2023-07-17 21:32] LABS: Glucose - Point of Care 207 mg/dl (70-99)
[2023-07-18] MEDS: HEPARIN 5000 UNITS SC ×3 (00:58→17:18)
[2023-07-18 03:00] VITALS: BP 118/83
[2023-07-18 05:31] LABS: Hematocrit 36.4 % (39.0-52.0); Hemoglobin 11.1 g/dL (13.0-18.0); Mean Corp Hgb Conc. 30.5 g/dL (33.0-37.0); Mean Corpuscular Hgb 31.3 pg (27.0-31.0); Mean Corpuscular Volume 102.5 fL (80.0-94.0); Mean Platelet Volume 10.7 fL (7.4-10.4); Platelet Count 259 10^3/uL (130-400); Red Blood Cell Count 3.55 10^6/uL (4.70-6.10); Red Cell Dist. Width 19.6 % (11.5-14.5); White Blood Cell Count 8.4 10^3/uL (4.8-10.8)
[2023-07-18 06:00] VITALS: BMI 23.1
[2023-07-18 06:09] LABS: Blood Urea Nitrogen 59 mg/dl (9-20); Calcium 8.5 mg/dl (8.4-10.2); Carbon Dioxide 26 mmol/L (22-30); Chloride 97 mmol/L (98-107); Estimated Creatinine Clearance 18 ml/min; Glucose 132 mg/dl (70-99); Phosphorus 4.1 mg/dl (2.5-4.5); Potassium 4.5 mmol/L (3.5-5.1); Sodium 139 mmol/L (135-145); eGFR 20.07
[2023-07-18] MEDS: ZOSYN 50 IV (06:17)
[2023-07-18 07:03] VITALS: BP 131/76
[2023-07-18 07:23] LABS: Glucose - Point of Care 126 mg/dl (70-99)
--- NOTE | 2023-07-18 07:58 | W.PN.HOSP.TC ---
Today's Communication/Plan
-
antibiotics discontinued, monitor off
possible discharge tomorrow back to SNF following HD if pt remains stable
Assessment / Plan
Assessment / Plan
Physical Exam
General: No Apparent Distress
HEENT: Normocephalic and Atraumatic
Respiratory: Negative Wheezes or Rales
Cardiac: Regular Rhythm and S1/S2
GI: Soft and Nontender
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
Neuro: AO x 2 disoriented to time
Hematologic / Lymphatic: No Lymphadenopathy
Psych: Calm
Assessment:
Delirium of unclear etiology suspect underlying dementia (discussed with patient's son Esteban who reports noting signs of cognitive decline for the past few years)
- CT head negative
- med list reviewed, no new changes. Con hold Mirtazapine for now
- B12, Folate, TSH/T4, Ammonia levels all normal
- Cultures NGTD
-Mild intermittent confusion noted, owning, waxing waning throughout day but otherwise calm cooperative
ESRD on HD
- M/W/F
- Nephrology following
- RCW cath with redness mildly surrounding skin since resolved
-empiric abx discontinued, monitor off
Arrhythmia with PACs, but in NSR
- possible Mobitz type 1 vs 2 at times
- asymptomatic
- Cards signed off
Chronic mild pulmonary edema with chronic loculated b/l pleural effusions and underlying parenchymal disease
- monitor
- volume management with HD
-nasal cannula supplementation prn
Chronic hypotension
- continue midodrine
PAD
- continue ASA
DM type 2 with nephropathy
- continue accu-checks SSI
MRSA screen positive
DVT ppx: Heparin
Code: Full
discussed with patient and his son Esteban
I spent a total of 50 minutes with the patient or on the floor. More than 50% of this time involved counseling and coordination of care.
Anticipated Discharge: Within 24 hours
Subjective/Interval History
-
Date of Service: July 18, 2023
No acute distress, reports overall feeling well. AOx2, disoriented to time.
Objective Data
-
Labs:
Laboratory Results
07/18/23
04:48
WBC 8.4
Hgb 11.1 L
Hct 36.4 L
Plt Count 259
Sodium 139
Potassium 4.5
Chloride 97 L
Carbon Dioxide 26
BUN 59 H
Creatinine 3.1 H
Glucose 132 H
Calcium 8.5
Vital Signs:
Vital Signs
Temp Pulse Resp BP Pulse Ox
97.6 F 111 18 118/83 93
07/18/23 03:00 07/18/23 03:00 07/18/23 03:00 07/18/23 03:00 07/18/23 03:00
I&O
07/17/23 07/18/23 07/19/23
06:59 06:59 06:59
Intake Total 880 / 880 720 / 720
Balance 880 / 880 720 / 720
[2023-07-18] MEDS: NOVOLOG FLEXPEN-MODERATE RESISTANCE SC ×2 (08:04→17:19)
[2023-07-18] MEDS: TOPROL XL 25 MG PO (08:04)
[2023-07-18] MEDS: ProAmatine 10 MG PO ×2 (08:05→17:18)
[2023-07-18] MEDS: PROTONIX 40 MG PO ×2 (08:05→20:57)
[2023-07-18] MEDS: LIPITOR 80 MG PO (08:05)
[2023-07-18] MEDS: LOW STRENGTH ASPIRIN 81 MG PO (08:05)
--- NOTE | 2023-07-18 09:03 | PHA.VAN.FU ---
Vancomycin Assessment / Plan
- Assessment
Hemodialysis Schedule: MWF
Last Hemodialysis performed: Mon 07/16
WBC's are: WNL
In the past 24 hrs, patient has been: Afebrile
Concomitant Antimicrobials: piperacillin/tazobactam
- Dosing Plan
Dosing by Level: Hold off on dosing today
- Monitoring Plan
Random Level: 07/18 prior to HD
- Follow Up
Pharmacy will continue to follow.
Vancomycin Follow UP
- -
Patient Age: 78
Patient Sex: Male
Vancomycin Day #: 4
Indication: Bacteremia
Requesting Provider: Dr Durga Carranza
Pertinent Antimicrobial Allergies:
NKDA
Height / Weight:
Height 5 ft 6 in
Actual Weight 65.005 kg
IBW in k.8
Pertinent Past Medical History: ESRD on HD, L AKA, R BKA, R tunneled IJ for HD placed 2 wks ago, DM
- Vital Signs / Lab Results
Temp Pulse Resp BP Pulse Ox
97.4 F 96 16 131/76 96
07/18/23 07:03 07/18/23 08:04 07/18/23 07:03 07/18/23 08:04 07/18/23 07:03
Lab Results - Hematology
07/16/23 07/17/23 07/18/23
07:34 12:52 04:48
WBC 7.9 7.1 8.4
Lab Results - Chemistry
07/16/23 07/17/23 07/18/23
07:34 12:52 04:48
BUN 77 H 84 H 59 H
Creatinine 3.3 H 4.0 H 3.1 H
Estimated Creat Clear
Albumin 3.1 L 3.4 L
Microbiology Results
07/16/23 09:23 MRSA Screen - Final
Nose Staph aureus MRSA
03/15/24 21:04 Blood Culture - Preliminary
Blood/Venous No Growth in 72 hours- Final report to follow
07/14/23 20:15 Blood Culture - Preliminary
Blood/Venous No Growth in 72 hours- Final report to follow
Therapeutic Drug Monitoring
Random Vancomycin 18.8 ug/ml 07/17/23 12:52
[2023-07-18 11:00] VITALS: BP 118/83
--- NOTE | 2023-07-18 11:08 | W.PN.NEPH.PH ---
Today's Communication / Plan
-
HD tomorrow
Assessment/Plan
-
IMP:
Delirium
Arrhythmia with PACs, but in NSR
Chronic mild pulmonary edema with chronic loculated b/l pleural effusions and underlying parenchymal disease
Right IJ HD catheter
HFrEF 25-30%, DD stage2
Bilateral pleural effusions
ESRD on HD-MWF [facility]
HTN history with midodrine-dependent hypotension
HLD
History CAD with TN
Ex-smoker
DM 2-diet controlled, DM nephropathy
PAD right BKA and left AKA
GERD
Chronic anemia, multifactorial
Depression
BPH
Legally blind
History bladder cancer
Hyperphosphatemia
clotted AVG s/p declot
Plan:
A/w AMS from NH
HD tomorrow orders provided
CVC site looks good no sign of infection
little erythema likely skin irritation
abx per primary, ok for po abx at d/c
BP stable on midodrine
-
-
Date of Service: July 18, 2023
CC / HPI / ROS
-
Chief Complaint:
ESRD
History of Present Illness:
BP stable
creatinine 3.1 after Hd on 07/16
ESRD MWF
Review of Systems:
no cp or soib
feels at baseline
Labs
-
Labs:
WBC 8.4 10^3/uL (4.8-10.8) 07/18/23 04:48
RBC 3.55 10^6/uL (4.70-6.10) L 07/18/23 04:48
Hgb 11.1 g/dL (13.0-18.0) L 07/18/23 04:48
Hct 36.4 % (39.0-52.0) L 07/18/23 04:48
Plt Count 259 10^3/uL (130-400) 07/18/23 04:48
Sodium 139 mmol/L (135-145) 07/18/23 04:48
Potassium 4.5 mmol/L (3.5-5.1) 07/18/23 04:48
Chloride 97 mmol/L (98-107) L 07/18/23 04:48
Carbon Dioxide 26 mmol/L (22-30) 07/18/23 04:48
BUN 59 mg/dl (9-20) H 07/18/23 04:48
Creatinine 3.1 mg/dL (0.7-1.3) H 07/18/23 04:48
eGFR 20.07 07/18/23 04:48
Glucose 132 mg/dl (70-99) H 07/18/23 04:48
Calcium 8.5 mg/dl (8.4-10.2) 07/18/23 04:48
Phosphorus 4.1 mg/dl (2.5-4.5) 07/18/23 04:48
Albumin 3.4 g/dl (3.5-5.0) L 07/17/23 12:52
Physical Exam
-
Vital Signs:
Vital Signs
Temp Pulse Resp BP Pulse Ox
97.4 F 96 16 131/76 96
07/18/23 07:03 07/18/23 08:04 07/18/23 07:03 07/18/23 08:04 07/18/23 10:30
Cardiovascular:: Regular rate and rhythm
Respiratory:: Bilateral: CTA
Lung Excursion:: Normal
Abdomen:: Nontender and Soft
Bowel Sounds:: Normal
Extremity Edema:: None: Bilateral:
Gonzalez Catheter: No
[2023-07-18 11:33] LABS: Glucose - Point of Care 160 mg/dl (70-99)
[2023-07-18] MEDS: NOVOLOG FLEXPEN-MODERATE RESISTANCE 1 UNITS SC (12:33)
[2023-07-18] MEDS: ProAmatine PO (12:33)
--- NOTE | 2023-07-18 13:15 | PN.CDI ---
CDI
- -
CDI:
Physician Documentation Request
Admit Date: 07/14/23 19:02
Dear Doctor Ida,
Patient admitted with delirium of unclear etiology.
07/14 Nursing skin assessment, 'Stage 2 sacral pressure injury, POA.'
Physician documentation of the type and location of wounds is required for compliant documentation. Based on the above clinical findings and your assessment, please provide the following in your progress note:
Type (etiology) of ulcer/wound:
- Pressure (decubitus) ulcer
- Other
- Unable to determine
For a pressure ulcer, please also include the stage* of the ulcer:
- Stage 1 - Skin intact, non-blanchable redness
- Stage 2 - Partial thickness loss of dermis, includes intact or open blister
- Stage 3 - Full thickness tissue not including bone, tendon or muscle
- Stage 4 - Full thickness tissue loss, including exposed bone, tendon or muscle
- Unstageable - Full thickness loss in which the base of the ulcer is covered by slough (yellow, love, vaz, green or brown) and/or eschar (love, brown or black) in the wound bed.
- Unable to determine
Use of terms such as suspected, likely, concern for, or probable (associated with a specific diagnosis that is being evaluated, monitored, or treated as if it exists) are acceptable and can be coded in the inpatient setting, when documented at the
time of discharge.
Thank you,
Daphne BOB,RN,CCDS
CDI Specialist
Available via [place] text
Please use your independent medical judgment in providing your response.
*Source: National Pressure Ulcer Advisory Panel (NPUAP)
--- NOTE | 2023-07-18 13:51 | CM ---
Discharge Plan of Care is to return to [facility] to resume LTC when medically cleared.
--- NOTE | 2023-07-18 14:47 | PTOTSP ---
Cognitive Linguistic Evaluation
Patient presents with signs concerning for cognitive linguistic changes for tasks assessed. 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 Abnormal labs noted
which could cause confusion. Per chart review, he has had episodic confusion in the past.
Recommend medical treatment at the acute care level. If confusion persists despite medical treatment, consider 1) consulting neuropsychologist for further evaluation and then 2) PAINTER AND DECORATOR for a standardized cognitive evaluation and cognitive treatment as
able/appropriate at the next level of care.
[2023-07-18 15:05] VITALS: BP 121/80
[2023-07-18 17:08] LABS: Glucose - Point of Care 132 mg/dl (70-99)
[2023-07-18 19:40] VITALS: BP 125/78
[2023-07-18] MEDS: LEXAPRO 5 MG PO (21:00)
[2023-07-18 22:04] LABS: Glucose - Point of Care 181 mg/dl (70-99)
--- NOTE | 2023-07-18 23:18 | PTCARENOTE ---
Pt calling out for 'Ant'; entered pt's room to asisst pt. Pt found to be picking at/playing with the dressing of his R chest HD cath. VAT team contacted, new sterile dressing placed. Covering POWDER BLENDER notified of pt's need for CXR to verify
placement of HD cath as pt displaced the entire dressing and was c/o mild pain/irritation at the insertion site. Portable CXR ordered obtained, radiology responded bedside. Discussed care of HD catheter with pt, pt in agreement. Pt is
confused/forgetful, medsitter put in place for safety.
[2023-07-18 23:46] VITALS: BP 123/83
[2023-07-19] MEDS: HEPARIN 5000 UNITS SC ×3 (01:35→17:00)
--- NOTE | 2023-07-19 03:22 | W.PN.UPDATE ---
Update Note
Progress Note Update
RN notified CHEMISTRY TEACHER of HD dialysis site dressing completely off with one suture intact. Portable chest Xray ordered to check placement, results noted. patient is not in any respiratory distress at present. Dressing in place.
[2023-07-19 03:30] VITALS: BP 119/78
[2023-07-19 06:00] VITALS: BMI 23.1
[2023-07-19 07:06] VITALS: BP 129/86
--- NOTE | 2023-07-19 07:10 | W.PN.HOSP.TC ---
Today's Communication/Plan
-
cont HD as per nephro
Rate control as per Cardio
resumed home remeron, prn ativan as per psych
Assessment / Plan
Assessment / Plan
Physical Exam
General: No Apparent Distress
HEENT: Normocephalic and Atraumatic
Respiratory: Negative Wheezes or Rales
Cardiac: Regular Rhythm and S1/S2
GI: Soft and Nontender
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
Neuro: AO x 3
Hematologic / Lymphatic: No Lymphadenopathy
Psych: Calm
Assessment:
Delirium of unclear etiology suspect underlying dementia vs pseudodementia (discussed with patient's son Esteban who reports noting signs of cognitive decline for the past few years)
- CT head negative
- B12, Folate, TSH/T4, Ammonia relatively wnl (mild TSH elevation noted 07/15 despite normal day prior, T4 however wnl, repeat TFTs recommended in 1 month)
- Cultures NGTD
-Mild intermittent confusion noted, owning, waxing waning throughout day but otherwise calm cooperative
-Psych eval appreciated unspecified depression adjustment d/o, prn ativan anxiety started, home remeron resumed
ESRD on HD
- M/W/F
- Nephrology following
- RCW cath with redness mildly surrounding skin since resolved
-empiric abx discontinued, monitor off
Acute on Chronic HFrEF
Worsening HF
CXR in eval HD cath d/t moment confusion where patient had removed dressing incidentally noted worsening pulmonary edema despite stable respiratory status room air
Bilateral moderate pleural effusion
- volume management with HD as per nephro
-nasal cannula supplementation prn
-IR eval appreciated s/p thoracentesis 07/18
-Cardio eval appreciated home metoprolol increased due to worsening tachycardia
-ECHO appreciated worsening EF and MR
Chronic hypotension
- continue midodrine
PAD
- continue ASA
Hx DM type 2
-Past and recent A1c consistently nondiabetic
- FS relatively well within goal, minimal/insignificant amt of insulin correction required during stay
-routine FS discontinued, unnecessary at this time.
Stage 2 sacral pressure injury, POA
cont local wound care
MRSA screen positive
DVT ppx: Heparin
Code: Full
discussed with patient and his son Esteban
I spent a total of 58 minutes with the patient or on the floor. More than 50% of this time involved counseling and coordination of care.
Anticipated Discharge: 24 - 48 hours
Subjective/Interval History
-
Date of Service: July 19, 2023
Overnight events noted for confusion picking at HD dressing patient calling out to his son-in-law Ant thinking that he was home instead of in hospital. CXR noted worsening pulm edema. Patient able to report some recollections of event night
prior. Lethargic but arousable, conversant. On dialysis at time of evaluation.
Objective Data
-
Labs:
Laboratory Results
07/19/23
06:00
WBC Pending
Hgb Pending
Hct Pending
Plt Count Pending
Sodium Pending
Potassium Pending
Chloride Pending
Carbon Dioxide Pending
BUN Pending
Creatinine Pending
Glucose Pending
Calcium Pending
Vital Signs:
Vital Signs
Temp Pulse Resp BP Pulse Ox
97.6 F 106 18 119/78 95
07/19/23 03:30 07/19/23 03:30 07/19/23 03:30 07/19/23 03:30 07/19/23 03:30
I&O
07/18/23 07/19/23 07/20/23
06:59 06:59 06:59
Intake Total 720 / 720 840 / 840
Balance 720 / 720 840 / 840
[2023-07-19 07:33] LABS: Glucose - Point of Care 137 mg/dl (70-99)
[2023-07-19 08:20] LABS: Hematocrit 33.8 % (39.0-52.0); Hemoglobin 10.2 g/dL (13.0-18.0); Mean Corp Hgb Conc. 30.2 g/dL (33.0-37.0); Mean Corpuscular Hgb 30.8 pg (27.0-31.0); Mean Corpuscular Volume 102.1 fL (80.0-94.0); Mean Platelet Volume 11.1 fL (7.4-10.4); Platelet Count 263 10^3/uL (130-400); Red Blood Cell Count 3.31 10^6/uL (4.70-6.10); Red Cell Dist. Width 19.9 % (11.5-14.5); White Blood Cell Count 6.4 10^3/uL (4.8-10.8)
[2023-07-19 08:33] LABS: Blood Urea Nitrogen 66 mg/dl (9-20); Calcium 8.6 mg/dl (8.4-10.2); Carbon Dioxide 23 mmol/L (22-30); Chloride 101 mmol/L (98-107); Estimated Creatinine Clearance 15 ml/min; Glucose 133 mg/dl (70-99); Magnesium 2.1 mg/dl (1.6-2.3); Phosphorus 5.9 mg/dl (2.5-4.5); Potassium 4.6 mmol/L (3.5-5.1); Sodium 138 mmol/L (135-145); eGFR 15.72
[2023-07-19] MEDS: NOVOLOG FLEXPEN-MODERATE RESISTANCE SC (08:42)
--- NOTE | 2023-07-19 09:18 | W.PN.NEPH.HD ---
Assessment
-
pt seen during HD
vitals stable but tachy limiting UF
midodrine to continue
CXR noted CHF worsening and he is above EDW-will need extra UF tomorrow
CVC site looks ok , reviewed that pt removed dressing off CVC site at night
d/w nursing
Progress Note - Hemodialysis
-
Date of Service: July 19, 2023
Duration: 30 minutes and 3 hours
Potassium Bath: 2
Calcium Bath: 2.5
Opti-Dialyzer: 160
Ultrafiltration: Other (1.5kg)
Blood Flow: 400
Dialysate Flow: 600
Heparin: yesx2
EPO: no
[2023-07-19] MEDS: HEPARIN 500 UNITS IV ×2 (09:24→09:25)
[2023-07-19] MEDS: ProAmatine 10 MG PO (09:24)
[2023-07-19] MEDS: HEPARIN 4000 UNITS INTRACATH (10:38)
[2023-07-19 11:05] VITALS: BP 120/73
[2023-07-19] MEDS: TOPROL XL 25 MG PO ×2 (11:11→21:22)
[2023-07-19] MEDS: LIPITOR 80 MG PO (11:12)
[2023-07-19] MEDS: PROTONIX 40 MG PO ×2 (11:12→21:21)
[2023-07-19] MEDS: LOW STRENGTH ASPIRIN 81 MG PO (11:12)
--- NOTE | 2023-07-19 11:14 | CON.MD ---
Consultation - Medical
-
patient seen chart reviewed. spoke with nursing and with dialysis nurse. patient has not been particularly agitated her but sometimes can be on the oppositional side. nursing told me he kept taking off oxygen. when i asked patient about it he
said it is uncomfortable. the patient was quite cooperative with this interview. he answered every question i asked him appropriately. he resides at [facility]. he needed help caring for himself. he was about 30 years ago. he raised
three kids has five grandchildren whom he does see from time to time. 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 he retired when the [employer] moved [place] and he did not want to go. he is frustrated by his illnesses. while he
would not say he is depressed now his illnesses have made life trying hence the lexapro 5 mg and remeron 15 mg. he is not clear how much they help. 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 he was fully oriented and knows who the president
his. he watches tv and listens to music to entertain self. cannot read bc he is 'legally blind' due to complications of dm. the patient does not endorse ill effects to current medications
past psych hx patient has never been psychiatrically hospitalized. nor has he engaged in psychotherapy .
medical hx patient here bc alterned mental status described as more confused and lethargic. he has hx end stage rf hld chf ascvd htn but now hypotensive takes midodrine left lower extremity amputation w phantom pain bladder ca bph dm b12
golate tsh t4 ammonia all nl
substance abuse denied
fh denied
social see above form much of sh
mse alert ox3 cooperative and pleasant. did not really open eyes but was attentive throughout speech and thought process normal mood is neutral no si no psychosis aver intelligence insight judgment seem okay at the moment
unspecified depression adjustment d/o
plan for now patient's mental status seems pretty reasonable. i don't see glaring dementia although on testing he may score in the mildly impaired range but i did not do testing today and he seemed to do reasonably well. would continue lexapro
and remeron no ill effects noted left a prn of ativan for anxiety will check in with him tomorrow.
[2023-07-19 11:32] LABS: Glucose - Point of Care 109 mg/dl (70-99)
[2023-07-19] MEDS: ProAmatine PO ×2 (11:48→17:01)
--- NOTE | 2023-07-19 12:28 | W.PN.CD ---
Addendum entered and electronically signed by David Manley MD 07/19/23 14:27:
78 yo male with ICM EF 25-30%, paroxysmal SVT, 1st degree AVB, Mobitz 1. Tachycardia is limiting HD/UF. Exam with irregular rhythm, s/p LE amputation. Tele: SR, paroxysmal SVT, PAC's.
Will try increasing Toprol XL to 25mg bid to control his SVT. Monitor tele.
Original Note:
Today's Communication / Plan
-
-increase metoprolol to BID and monitor telemetry
-volume management with HD
Impression / Plan
-
Assessment/Plan: 78 y/o pt with ESRD on HD, ICM EF 25-30, CAD, PAC's, mod MR, who was transferred from senior living for change in mental status and hypoxia. Cardiology consulted earlier this admit for possible AF on tele. No afib was noted, but
PAC's and Mobitz I noted. We are now reconsulted since tachycardia noted on monitor which is limiting dialysis, and also since patient CXR worsening (pulm edema, pleural effusions).
Tachycardia:
-consulted earlier this admit due to concern for AF- No AF noted on tele (PACs, Mobitz 1). In past pt noted to have low grade atrial arrhythmias without AF.
-noted to have periods of tachycardia, which have limited dialysis- tele reviewed SVT episodes. No palpitations.
-EKG shows ST with 1st degree AVB and PAC's
Moderate B/L pleural effusions:
-IR consulted to evaluate for thoracentesis
CAD:
-stable without CP
-ASA, statin
ICM:
-echo 03/27/23: EF 25-30%, hypokinesis of the mid to apical septum, mid to apical anterior segments, and apex. Mod MR, mild/mod TR, PASP 51mmhg.
-GDMT has been limited secondary to hypotension- monitor with adjustment in BB
-[id number]-[id number]-mfvoeoo HFrEF in setting of ESRD- volume management with HD
ESRD: HD
-chronic hypotension: midodrine
-per nephro
Physical Exam
Vital Signs/Labs
Vital Signs
Temp Pulse Resp BP Pulse Ox
98.0 F 106 16 120/73 95
07/19/23 07:06 07/19/23 11:48 07/19/23 07:06 07/19/23 11:48 07/19/23 08:00
07/18/23 07/19/23 07/20/23
06:59 06:59 06:59
Actual Weight 65.005 kg 64.909 kg
07/19/23 07:46
07/19/23 07:46
Magnesium 2.1 mg/dl (1.6-2.3) 07/19/23 07:46
Free T4 0.91 ng/dl (0.78-2.19) 07/16/23 07:34
Physical Exam
Constitutional: No acute distress
EENT: Anicteric
Cardiovascular: Rhythm & rate is regular
Respiratory: Other (diminished to B/L bases)
Neuro/Psych: Alert and Oriented (to self and time)
Data Reviewed
-
Date of Service: July 19, 2023
EKG: Tracing Personally Visualized and interpreted (as noted)
Labs: Labs Reviewed by me
--- NOTE | 2023-07-19 13:30 | PTCARENOTE ---
pt HD today. Removed 1L
[2023-07-19 15:06] VITALS: BP 121/82
--- NOTE | 2023-07-19 15:29 | PN.CDI ---
CDI
- -
CDI:
Physician Documentation Request
Admit Date: 07/14/23 19:02
Dear Suzie LACEY,
Patient admitted with delirium of unclear etiology.
07/18 Cardiology note, 'wtcqj-[id number] HFrEF in setting of ESRD- volume management with HD.'
Please clarify the following in your note:
Baofa-gq-nakzbwr HFrEF was present on admission
Hvvnp-hh-irqzxrb HFrEF was not present on admission
Other
Use of terms such as suspected, likely, concern for, or probable (associated with a specific diagnosis that is being evaluated, monitored, or treated as if it exists) are acceptable and can be coded in the inpatient setting, when documented at the
time of discharge.
Thank you,
Daphne BBO,RN,CCDS
CDI Specialist
Available via [place] text
Please use your independent medical judgment in providing your response.
--- NOTE | 2023-07-19 15:38 | CM ---
Discharge Plan of Care is to return to [facility] for resumption of LTC when medically stable.
[2023-07-19 15:54] LABS: Body Fluid pH 7.39
--- NOTE | 2023-07-19 16:06 | PTCARENOTE ---
patient back from IR. R thoracentesis done. 450ml removed. R lower back site band aid intact. No drainage noted at this time. no s/s of distress noted. plan of care ongoing.
[2023-07-19 16:08] LABS: Body Fluid Glucose 101 mg/dl; Body Fluid LDH 102 U/L; Body Fluid Protein 2.2 g/dl; Body Fluid Triglycerides < 30 mg/dl
[2023-07-19 16:15] LABS: Body Fluid Mononuclear 96.5 %; Body Fluid Polymorphonuclear 3.5 %; Body Fluid WBC 572 /CUMM
[2023-07-19 16:20] LABS: Body Fluid Second Tech JKH
[2023-07-19 19:20] VITALS: BP 122/82
[2023-07-19] MEDS: REMERON 15 MG PO (21:22)
[2023-07-19] MEDS: LEXAPRO 5 MG PO (21:22)
[2023-07-19] MEDS: ATIVAN 0.5 MG PO (21:22)
[2023-07-19 22:04] LABS: Glucose - Point of Care 181 mg/dl (70-99)
[2023-07-19 23:16] VITALS: BP 124/73
[2023-07-20] MEDS: HEPARIN 5000 UNITS SC ×2 (01:00→17:48)
[2023-07-20 03:50] VITALS: BP 119/93
[2023-07-20 05:44] VITALS: BMI 23.4
[2023-07-20 06:46] LABS: Hematocrit 36.4 % (39.0-52.0); Hemoglobin 11.2 g/dL (13.0-18.0); Mean Corp Hgb Conc. 30.8 g/dL (33.0-37.0); Mean Corpuscular Hgb 31.2 pg (27.0-31.0); Mean Corpuscular Volume 101.4 fL (80.0-94.0); Platelet Count 250 10^3/uL (130-400); Red Blood Cell Count 3.59 10^6/uL (4.70-6.10); Red Cell Dist. Width 20.1 % (11.5-14.5); White Blood Cell Count 5.8 10^3/uL (4.8-10.8)
[2023-07-20 07:10] LABS: Blood Urea Nitrogen 43 mg/dl (9-20); Calcium 8.4 mg/dl (8.4-10.2); Carbon Dioxide 24 mmol/L (22-30); Chloride 99 mmol/L (98-107); Estimated Creatinine Clearance 18 ml/min; Glucose 131 mg/dl (70-99); Phosphorus 5.3 mg/dl (2.5-4.5); Potassium 4.3 mmol/L (3.5-5.1); Sodium 137 mmol/L (135-145); eGFR 20.07
--- NOTE | 2023-07-20 07:22 | W.PN.HOSP.TC ---
Today's Communication/Plan
-
cont HD as per nephro
Rate control as per Cardio
remeron and prn ativan doses reduced as per psych
follow cultures, cont monitoring off abx
Assessment / Plan
Assessment / Plan
Physical Exam
General: No Apparent Distress
HEENT: Normocephalic and Atraumatic
Respiratory: Negative Wheezes or Rales
Cardiac: Regular Rhythm and S1/S2
GI: Soft and Nontender
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
Neuro: Lethargic but arousable conversant
Hematologic / Lymphatic: No Lymphadenopathy
Psych: Calm
Assessment:
Delirium of unclear etiology suspect underlying dementia vs pseudodementia (discussed with patient's son Esteban who reports noting signs of cognitive decline for the past few years)
Likely Metabolic Encephalopathy with multiple medical issues likely contributing as well.
- CT head negative
- B12, Folate, TSH/T4, Ammonia relatively wnl (mild TSH elevation noted 07/15 despite normal day prior, T4 however wnl, repeat TFTs recommended in 1 month)
- Cultures NGTD
-Intermittent confusion noted, , waxing waning throughout day
-Discussed with patient's son, noted incident 07/18 around noon patient confused yelling at staff thinking he was on a boat as witnessed by [id number] during visit
-Psych eval appreciated unspecified depression adjustment d/o, prn ativan anxiety started, home remeron resumed, doses ativan and remeron later reduced d/t concern sedation
ESRD on HD
- M/W/F
- Nephrology following
- RCW cath with redness mildly surrounding skin since resolved
-empiric abx discontinued, monitor off
Acute on Chronic HFrEF
Worsening HF
CXR in eval HD cath d/t moment confusion where patient had removed dressing incidentally noted worsening pulmonary edema despite stable respiratory status room air
Bilateral moderate pleural effusion
- volume management with HD as per nephro
-nasal cannula supplementation prn
-IR eval appreciated s/p thoracentesis 07/18
-Cardio eval appreciated home metoprolol increased due to worsening tachycardia, tachycardia improved, blood pressure tolerating
-ECHO appreciated worsening EF and MR, consideration ICD placement and/or Valve intervention to be pursued outpatient as per cardio.
Chronic hypotension
- continue midodrine
PAD
- continue ASA
Hx DM type 2
-Past and recent A1c consistently nondiabetic
- FS relatively well within goal, minimal/insignificant amt of insulin correction required during stay
-routine FS discontinued, unnecessary at this time.
Stage 2 sacral pressure injury, POA
cont local wound care
MRSA screen positive
DVT ppx: Heparin
Code: Full
discussed with patient and his son Esteban
I spent a total of 56 minutes with the patient or on the floor. More than 50% of this time involved counseling and coordination of care.
Anticipated Discharge: 24 - 48 hours
Subjective/Interval History
-
Date of Service: July 20, 2023
Lethargic but arousable conversant.
Objective Data
-
Labs:
Laboratory Results
07/20/23
05:15
WBC 5.8
Hgb 11.2 L
Hct 36.4 L
Plt Count 250
Sodium 137
Potassium 4.3
Chloride 99
Carbon Dioxide 24
BUN 43 H
Creatinine 3.1 H
Glucose 131 H
Calcium 8.4
Vital Signs:
Vital Signs
Temp Pulse Resp BP Pulse Ox
97.1 F 76 20 119/93 98
07/20/23 03:50 07/20/23 03:50 07/20/23 03:50 07/20/23 03:50 07/20/23 03:50
I&O
07/19/23 07/20/23 07/21/23
06:59 06:59 06:59
Intake Total 840 / 840 600 / 600
Balance 840 / 840 600 / 600
[2023-07-20 07:49] VITALS: BP 117/79
[2023-07-20] MEDS: HEPARIN 500 UNITS IV ×2 (07:55→08:55)
[2023-07-20] MEDS: PROTONIX 40 MG PO ×2 (08:58→20:24)
[2023-07-20] MEDS: ProAmatine 10 MG PO ×2 (08:58→13:13)
[2023-07-20] MEDS: FLEXBUMIN 25% FOR HEMODIALYSIS 12.5 GRAMS IV (09:04)
[2023-07-20] MEDS: LIPITOR PO (09:06)
[2023-07-20] MEDS: LOW STRENGTH ASPIRIN PO (09:06)
[2023-07-20] MEDS: TOPROL XL PO (09:07)
[2023-07-20] MEDS: HEPARIN 4300 UNITS INTRACATH (10:26)
[2023-07-20] MEDS: HEPARIN SC (10:30)
--- NOTE | 2023-07-20 10:56 | W.PN.NEPH.HD ---
Assessment
-
pt seen during HD
vitals stable with midodrine
BB increased per cards for SVT
UF as tolerates goal of 2-2.5kg
CVC functions well
Wt is up despite HD yesterday unclear wts are accurate
He may still need xtra UF later this week
HD as scheduled tomorrow
noted echo EF low 20-25%, DD stage3, mod- severe MR
s/p thoracentesis of 450cc from right chest
no neutra phos at d/c
Progress Note - Hemodialysis
-
Date of Service: July 20, 2023
Duration: 30 minutes and 2 hours
Opti-Dialyzer: 160
Ultrafiltration: Other (2-2.5kg)
Blood Flow: 400
Dialysate Flow: 600
Heparin: yesx2
EPO: no
[2023-07-20 11:36] VITALS: BP 102/67
--- NOTE | 2023-07-20 12:42 | W.PN.CD ---
Addendum entered and electronically signed by Sher Suggs MD 07/20/23 12:59:
Chronic treatment of his ischemic cardiomyopathy and moderate to severe MR including discussions for mitral valve intervention and primary prevention ICD will be pursued in the outpatient setting. Patients with end-stage renal disease are
challenging because of their poor prognosis overall and a temporary enthusiasm for aggressive treatment. Mitral regurgitation should be reevaluated when he is closer to euvolemia.
Original Note:
Today's Communication / Plan
-
Tolerating ultrafiltration today
Tolerating increased beta marquis. AT/SVT well suppressed by tele review
Continue current BB dose
Impression / Plan
-
Assessment/Plan: 78 y/o pt with ESRD on HD, ICM EF 25-30, CAD, PAC's, mod MR, who was transferred from senior care for change in mental status and hypoxia. Cardiology consulted earlier this admit for possible AF on tele. No afib was noted, but
PAC's and Mobitz I noted. We are now reconsulted since tachycardia noted on monitor which is limiting dialysis, and also since patient CXR worsening (pulm edema, pleural effusions).
ATs/SVT/PACs
- Better controlled on current BB
Hx Mobitz I
- None on tele last 24 hrs despite increased BB dose
- Monitor
Moderate B/L pleural effusions:
-IR consulted to evaluate for thoracentesis
CAD:
-stable without CP
-ASA, statin
ICM:
-echo 03/27/23: EF 25-30%, hypokinesis of the mid to apical septum, mid to apical anterior segments, and apex. Mod MR, mild/mod TR, PASP 51mmhg.
-GDMT has been limited secondary to hypotension- monitor with adjustment in BB
-tvkpg-ph-orrkbjx HFrEF in setting of ESRD- volume management with HD
ESRD: HD
-chronic hypotension: midodrine
-per nephro
Physical Exam
Vital Signs/Labs
Vital Signs
Temp Pulse Resp BP Pulse Ox
96.5 F L 79 18 102/67 96
07/20/23 11:36 07/20/23 11:36 07/20/23 11:36 07/20/23 11:36 07/20/23 11:36
07/19/23 07/20/23 07/21/23
06:59 06:59 06:59
Actual Weight 64.909 kg 65.68 kg
07/20/23 05:15
07/20/23 05:15
Magnesium 2.0 mg/dl (1.6-2.3) 07/20/23 05:15
Free T4 0.91 ng/dl (0.78-2.19) 07/16/23 07:34
Physical Exam
Constitutional: No acute distress
Cardiovascular: Rhythm & rate is regular and Pedal edema is absent
Respiratory: Respiratory effort normal and Lungs clear to auscul.
GI: Soft
Data Reviewed
-
Date of Service: July 20, 2023
--- NOTE | 2023-07-20 13:29 | CM ---
Severe Mitral regurgitation, R pleural effusion and thoracentesis on 07/19/23. Discharge Plan of Care remains: Return to [facility] for resumption of LTC and HD.
--- NOTE | 2023-07-20 14:31 | W.PN.UPDATE ---
Update Note
Progress Note Update
patient seen chart reviewed. patient appeared very very tired this am. he said sometimes he feels like this after dialysis. of course, there are other ongoing medical issues that may also explain his fatigue. will cut back prn to o.25 mg ativan
(he has not received it today) and will also cut back hs remeron to 7.5. remeron clearance is affected by renal incapacity and it could be contributing to daytime somnolence. will follow
[2023-07-20 17:53] VITALS: BP 123/73
[2023-07-20] MEDS: ProAmatine PO (17:54)
[2023-07-20 19:38] VITALS: BP 119/79
[2023-07-20] MEDS: TOPROL XL 25 MG PO (20:24)
[2023-07-20] MEDS: REMERON 7.5 MG PO (22:01)
[2023-07-20] MEDS: LEXAPRO 5 MG PO (22:01)
[2023-07-20 23:33] VITALS: BP 120/80
[2023-07-21] MEDS: HEPARIN 5000 UNITS SC ×3 (00:04→23:12)
[2023-07-21 04:07] VITALS: BP 119/82
[2023-07-21 06:00] VITALS: BMI 21.2
[2023-07-21 06:26] LABS: Hematocrit 37.8 % (39.0-52.0); Hemoglobin 11.6 g/dL (13.0-18.0); Mean Corp Hgb Conc. 30.7 g/dL (33.0-37.0); Mean Corpuscular Hgb 31.1 pg (27.0-31.0); Mean Corpuscular Volume 101.3 fL (80.0-94.0); Mean Platelet Volume 11.2 fL (7.4-10.4); Platelet Count 241 10^3/uL (130-400); Red Blood Cell Count 3.73 10^6/uL (4.70-6.10); Red Cell Dist. Width 19.8 % (11.5-14.5)
[2023-07-21 06:44] LABS: Blood Urea Nitrogen 54 mg/dl (9-20); Calcium 8.8 mg/dl (8.4-10.2); Carbon Dioxide 23 mmol/L (22-30); Chloride 97 mmol/L (98-107); Estimated Creatinine Clearance 14 ml/min; Glucose 109 mg/dl (70-99); Phosphorus 6.2 mg/dl (2.5-4.5); Potassium 4.5 mmol/L (3.5-5.1); Sodium 138 mmol/L (135-145); eGFR 16.23
[2023-07-21 07:07] VITALS: BP 113/60
--- NOTE | 2023-07-21 07:52 | W.PN.HOSP.TC ---
Today's Communication/Plan
-
cont current care
possible discharge tomorrow back to SNF if remains stable/continues to improve
Assessment / Plan
Assessment / Plan
Physical Exam
General: No Apparent Distress
HEENT: Normocephalic and Atraumatic
Respiratory: Negative Wheezes or Rales
Cardiac: Regular Rhythm and S1/S2
GI: Soft and Nontender
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
Neuro: Awake Alert Conversant
Psych: Calm
Assessment:
Delirium of unclear etiology suspect underlying dementia vs pseudodementia (discussed with patient's son Esteban who reports noting signs of cognitive decline for the past few years)
Likely Metabolic Encephalopathy with multiple medical issues likely contributing as well.
- CT head negative
- B12, Folate, TSH/T4, Ammonia relatively wnl (mild TSH elevation noted 07/15 despite normal day prior, T4 however wnl, repeat TFTs recommended in 1 month)
- Cultures NGTD
-Intermittent confusion noted, , waxing waning throughout day
-Discussed with patient's son, noted incident 07/18 around noon patient confused yelling at staff thinking he was on a boat as witnessed by [id number] during visit
-Psych eval appreciated unspecified depression adjustment d/o, prn ativan anxiety started, home remeron resumed, doses ativan and remeron later reduced d/t concern sedation. Alertness subsequently appears improved though varies throughout the day.
ESRD on HD
- M/W/F
- Nephrology following
- RCW cath with redness mildly surrounding skin since resolved
-empiric abx discontinued, monitor off, no significant signs infection noted since
Acute on Chronic HFrEF
Worsening HF
CXR in eval HD cath d/t moment confusion where patient had removed dressing incidentally noted worsening pulmonary edema despite stable respiratory status room air
Bilateral moderate pleural effusion
- volume management with HD as per nephro
-nasal cannula supplementation prn
-IR eval appreciated s/p thoracentesis 07/18
-Cardio eval appreciated home metoprolol increased due to worsening tachycardia, tachycardia improved, blood pressure tolerating
-ECHO appreciated worsening EF and MR, consideration ICD placement and/or Valve intervention to be pursued outpatient as per cardio.
Chronic hypotension
- continue midodrine
PAD
- continue ASA
Hx DM type 2
-Past and recent A1c consistently nondiabetic
- FS relatively well within goal, minimal/insignificant amt of insulin correction required during stay
-routine FS discontinued, unnecessary at this time.
Stage 2 sacral pressure injury, POA
cont local wound care
MRSA screen positive
DVT ppx: Heparin
Code: Full
discussed with patient and his son Esteban
I spent a total of 53 minutes with the patient or on the floor. More than 50% of this time involved counseling and coordination of care.
Anticipated Discharge: Within 24 hours
Subjective/Interval History
-
Date of Service: July 21, 2023
Awake alert eating breakfast. Reports overall feeling well. Heart rate control notably significantly improved with increased metoprolol as per cardio. Blood pressure tolerating.
Objective Data
-
Labs:
Laboratory Results
07/21/23
05:28
WBC 6.0
Hgb 11.6 L
Hct 37.8 L
Plt Count 241
Sodium 138
Potassium 4.5
Chloride 97 L
Carbon Dioxide 23
BUN 54 H
Creatinine 3.7 H
Glucose 109 H
Calcium 8.8
Vital Signs:
Vital Signs
Temp Pulse Resp BP Pulse Ox
98.2 F 98 18 119/82 94
07/21/23 04:07 07/21/23 04:07 07/21/23 04:07 07/21/23 04:07 07/21/23 04:07
I&O
07/20/23 07/21/23 07/22/23
06:59 06:59 06:59
Intake Total 600 / 600 120 / 120
Balance 600 / 600 120 / 120
--- NOTE | 2023-07-21 08:18 | W.PN.CD ---
Today's Communication / Plan
-
- Can be discharged on Toprol-XL 25 mg twice daily.
- Conservative cardiac management; volume management with hemodialysis.
- No further cardiac recommendations at this time; outpatient follow-up with Cardiology.
Impression / Plan
-
Assessment/Plan: 78 y/o pt with ESRD on HD, ICM EF 25-30, CAD, PAC's, mod MR, who was transferred from senior care for change in mental status and hypoxia. Cardiology consulted earlier this admit for possible AF on tele. No afib was noted, but
PAC's and Mobirvin I noted. We are now reconsulted since tachycardia noted on monitor which is limiting dialysis, and also since patient CXR worsening (pulm edema, pleural effusions).
ATs/SVT/PACs
- Better controlled on current BB
- Can be discharged on Toprol-XL 25 mg twice daily.
Hx Mobitz I
- None on tele last 24 hrs despite increased BB dose
- Appears to be stable on current dose of Toprol-XL.
CAD:
-stable without CP
-Continue ASA, statin.
ICM:
-echo 03/27/23: EF 25-30%, hypokinesis of the mid to apical septum, mid to apical anterior segments, and apex. Mod MR, mild/mod TR, PASP 51mmhg.
-GDMT has been limited secondary to hypotension- monitor with adjustment in BB
-tapmk-wz-chexmxy HFrEF in setting of ESRD- volume management with HD
-Conservative management from a cardiac standpoint; likely poor candidate for ICD.
Moderate to severe MR:
-Conservative cardiac management; volume management with hemodialysis.
-Poor candidate for any surgical intervention.
ESRD: HD
-chronic hypotension: midodrine
-per nephro
Moderate B/L pleural effusions:
-IR consulted for thoracentesis
-Long-term volume management with dialysis.
Physical Exam
Vital Signs/Labs
Vital Signs
Temp Pulse Resp BP Pulse Ox
98.2 F 98 18 119/82 94
07/21/23 04:07 07/21/23 04:07 07/21/23 04:07 07/21/23 04:07 07/21/23 04:07
07/20/23 07/21/23 07/22/23
06:59 06:59 06:59
Actual Weight 65.68 kg 59.534 kg
07/21/23 05:28
07/21/23 05:28
Magnesium 2.0 mg/dl (1.6-2.3) 07/21/23 05:28
Free T4 0.91 ng/dl (0.78-2.19) 07/16/23 07:34
Physical Exam
Constitutional: No acute distress and Comfortable
EENT: Anicteric
Cardiovascular: Rhythm & rate is regular, Systolic murmur present (2/) and S1S2 is normal
Respiratory: Respiratory effort normal and Lungs clear to auscul.
Neuro/Psych: Alert and Oriented
Other: Skin (warm)
Data Reviewed
-
Date of Service: July 21, 2023
EKG: Tracing Personally Visualized and interpreted (Telemetry: Sinus rhythm, PACs)
Echo: Report Reviewed by me (EF 20-25%, moderate to severe MR)
Medical Tests (PFT, Pathology etc): Discussed with Patient
Labs: Labs Reviewed by me
[2023-07-21] MEDS: PROTONIX 40 MG PO ×2 (09:12→21:16)
[2023-07-21] MEDS: ProAmatine 10 MG PO ×4 (09:12→17:17)
[2023-07-21] MEDS: LIPITOR 80 MG PO (09:12)
[2023-07-21] MEDS: LOW STRENGTH ASPIRIN 81 MG PO (09:12)
[2023-07-21] MEDS: TOPROL XL 25 MG PO ×2 (09:12→21:16)
[2023-07-21 10:05] LABS: TSH Reflex To Free T4 6.03 uIU/ml (0.47-4.68)
[2023-07-21 10:32] LABS: Free T4 0.88 ng/dl (0.78-2.19)
[2023-07-21 11:05] VITALS: BP 110/60
--- NOTE | 2023-07-21 11:25 | W.PN.UPDATE ---
Addendum entered and electronically signed by Ro Adkins MD 07/21/23 12:15:
psych will sign off at this point. patient is cooperative and generally pleasant. would monitor re sedation.
Original Note:
Update Note
Progress Note Update
patient seen chart reviewed. spoke with nursing. mr webb was conversant but remains rather sleepy. he told me he was 'just closing my eyes' i explained to him that i halved the remeron yesteday bc i was concerned re daytime sedation. he said he
still was able to fall asleep and slept okay afterwards. he asked me about the fluid on his lungs ' i thought dialysis was supposed to take that off'. while he was not oriented to day of the week he was doing some thinking about his illness.
explained to him that there's more than one mechanism for fluid to accumulate in the lungs and dialysis will not necessarily relieve that particular fluid. suggested he talk to hospitalist to explain further. no changes made in medication at this
point. while lexapro can be used with renal impairment caution must be taken w severe impairment; left dose at 5 mg for the present.
[2023-07-21 15:05] VITALS: BP 110/67
--- NOTE | 2023-07-21 15:44 | CM ---
Discharge Plan of Care: Return to [facility] for resumption of LTC and HD.
[2023-07-21] MEDS: HEPARIN 500 UNITS IV ×2 (15:55→16:55)
--- NOTE | 2023-07-21 16:02 | W.PN.NEPH.HD ---
Assessment
-
Patient seen on HD
sbp stable at 111 at current u/f
Progress Note - Hemodialysis
-
Date of Service: July 21, 2023
Duration: 30 minutes and 3 hours
Potassium Bath: 2
Calcium Bath: 2.5
Opti-Dialyzer: 160
Ultrafiltration: Other (2kg as bp tolerates (midorine given pre HD))
Blood Flow: 400
Dialysate Flow: 600
Heparin: 500 x2
EPO: none
[2023-07-21] MEDS: HEPARIN SC (16:04)
[2023-07-21] MEDS: HEPARIN 4300 UNITS INTRACATH (19:13)
[2023-07-21 19:36] VITALS: BP 124/86
[2023-07-21] MEDS: LEXAPRO 5 MG PO (21:15)
[2023-07-21] MEDS: REMERON 7.5 MG PO (21:15)
[2023-07-21 23:23] VITALS: BP 119/83
[2023-07-22 03:25] VITALS: BP 133/72; BMI 21.0
[2023-07-22 07:15] VITALS: BP 110/66
--- NOTE | 2023-07-22 07:16 | W.PN.HOSP.TC ---
Today's Communication/Plan
-
cont current care
discharge planning tomorrow back to SNF with outpatient follow up recommendations
Assessment / Plan
Assessment / Plan
Physical Exam
General: No Apparent Distress
HEENT: Normocephalic and Atraumatic
Respiratory: Negative Wheezes or Rales
Cardiac: Regular Rhythm and S1/S2
GI: Soft and Nontender
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
Neuro: Awake Alert Conversant
Psych: Calm
Assessment:
Delirium of unclear etiology suspect underlying dementia vs pseudodementia (discussed with patient's son Esteban who reports noting signs of cognitive decline for the past few years)
Likely Metabolic Encephalopathy with multiple medical issues likely contributing as well.
- CT head negative
- B12, Folate, TSH/T4, Ammonia relatively wnl (mild TSH elevation noted 07/15 despite normal day prior, T4 however wnl, repeat TFTs recommended in 1 month)
- Cultures NGTD
-Intermittent confusion noted, , waxing waning throughout day
-Discussed with patient's son, noted incident 07/18 around noon patient confused yelling at staff thinking he was on a boat as witnessed by [id number] during visit
-Psych eval appreciated unspecified depression adjustment d/o, prn ativan anxiety started, home remeron resumed, doses ativan and remeron later reduced d/t concern sedation. Alertness subsequently appears improved though varies throughout the day.
ESRD on HD
- M/W/F
- Nephrology following
- RCW cath with redness mildly surrounding skin since resolved
-empiric abx discontinued, monitor off, no significant signs infection noted since
Acute on Chronic HFrEF
Worsening HF
CXR in eval HD cath d/t moment confusion where patient had removed dressing incidentally noted worsening pulmonary edema despite stable respiratory status room air
Bilateral moderate pleural effusion
- volume management with HD as per nephro
-nasal cannula supplementation prn
-IR eval appreciated s/p thoracentesis 07/18
-Cardio eval appreciated home metoprolol increased due to worsening tachycardia, tachycardia improved, blood pressure tolerating
-ECHO appreciated worsening EF and MR, consideration ICD placement and/or Valve intervention to be pursued outpatient as per cardio.
Chronic hypotension
- continue midodrine
PAD
- continue ASA
Hx DM type 2
-Past and recent A1c consistently nondiabetic
- FS relatively well within goal, minimal/insignificant amt of insulin correction required during stay
-routine FS discontinued, unnecessary at this time.
Stage 2 sacral pressure injury, POA
cont local wound care
MRSA screen positive
DVT ppx: Heparin
Code: Full
discussed with patient and his son Esteban
I spent a total of 40 minutes with the patient or on the floor. More than 50% of this time involved counseling and coordination of care.
Anticipated Discharge: Within 24 hours
Subjective/Interval History
-
Date of Service: July 22, 2023
No acute distress. resting comfortably in bed. Awake alert conversant
Objective Data
-
Labs:
Laboratory Results
07/22/23
06:00
WBC Pending
Hgb Pending
Hct Pending
Plt Count Pending
Sodium Pending
Potassium Pending
Chloride Pending
Carbon Dioxide Pending
BUN Pending
Creatinine Pending
Glucose Pending
Calcium Pending
Vital Signs:
Vital Signs
Temp Pulse Resp BP Pulse Ox
97.4 F 77 16 133/72 96
07/21/23 23:23 07/22/23 03:25 07/22/23 03:25 07/22/23 03:25 07/22/23 03:25
I&O
07/21/23 07/22/23 07/23/23
06:59 06:59 06:59
Intake Total 120 / 120 600 / 600
Balance 120 / 120 600 / 600
[2023-07-22 08:35] LABS: Hematocrit 38.9 % (39.0-52.0); Mean Corp Hgb Conc. 30.8 g/dL (33.0-37.0); Mean Corpuscular Hgb 31.1 pg (27.0-31.0); Mean Corpuscular Volume 100.8 fL (80.0-94.0); Mean Platelet Volume 10.8 fL (7.4-10.4); Platelet Count 228 10^3/uL (130-400); Red Blood Cell Count 3.86 10^6/uL (4.70-6.10); White Blood Cell Count 5.5 10^3/uL (4.8-10.8)
[2023-07-22] MEDS: ProAmatine 10 MG PO ×3 (09:08→17:22)
[2023-07-22] MEDS: LIPITOR 80 MG PO (09:08)
[2023-07-22] MEDS: PROTONIX 40 MG PO ×2 (09:08→20:30)
[2023-07-22] MEDS: TOPROL XL 25 MG PO ×2 (09:09→20:31)
[2023-07-22] MEDS: LOW STRENGTH ASPIRIN 81 MG PO (09:09)
[2023-07-22] MEDS: THERAGRAN 1 TABLET PO (09:09)
[2023-07-22] MEDS: HEPARIN 5000 UNITS SC ×3 (09:09→23:35)
[2023-07-22 09:16] LABS: Blood Urea Nitrogen 30 mg/dl (9-20); Calcium 8.3 mg/dl (8.4-10.2); Carbon Dioxide 27 mmol/L (22-30); Chloride 99 mmol/L (98-107); Estimated Creatinine Clearance 20 ml/min; Glucose 112 mg/dl (70-99); Phosphorus 4.5 mg/dl (2.5-4.5); Potassium 3.6 mmol/L (3.5-5.1); Sodium 136 mmol/L (135-145); eGFR 24.78
--- NOTE | 2023-07-22 10:30 | CM ---
Addendum entered by Chelsea Hutchinson RN 07/22/23 15:57:
IMM signed and placed on chart.
Original Note:
Reviewed the chart notes. 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
Plan: Discharge back to [facility] when medically stable. Patient received HD at [facility].
Call report to: [phone]
Fax report to: [phone]
--- NOTE | 2023-07-22 12:26 | W.PN.NEPH.PH ---
Today's Communication / Plan
-
Observe
Dialysis Monday
Maintain midodrine for hemodynamic support
Currently off antibiotic
Assessment/Plan
-
IMP:
Delirium
Arrhythmia with PACs, but in NSR
Chronic mild pulmonary edema with chronic loculated b/l pleural effusions and underlying parenchymal disease
Right IJ HD catheter
HFrEF 25-30%, DD stage2
Bilateral pleural effusions
ESRD on HD-MWF [facility]
HTN history with midodrine-dependent hypotension
HLD
History CAD with RI
Ex-smoker
DM 2-diet controlled, DM nephropathy
PAD right BKA and left AKA
GERD
Chronic anemia, multifactorial
Depression
BPH
Legally blind
History bladder cancer
Hyperphosphatemia
clotted AVG s/p declot
Plan:
[place]/w AMS from [place]
HD will be scheduled next for Monday
Maintain midodrine for chronic hypotension
CVC site looks good no sign of infection
little erythema likely skin irritation
Now off antibiotics
BP stable on midodrine
-
-
Date of Service: July 22, 2023
CC / HPI / ROS
-
Chief Complaint:
ESRD
History of Present Illness:
BP stable on midodrine support
creatinine 3.1 after Hd on 07/16
ESRD MWF
Review of Systems:
no cp or soib
feels at baseline
Labs
-
Labs:
WBC 5.5 10^3/uL (4.8-10.8) 07/22/23 08:13
RBC 3.86 10^6/uL (4.70-6.10) L 07/22/23 08:13
Hgb 12.0 g/dL (13.0-18.0) L 07/22/23 08:13
Hct 38.9 % (39.0-52.0) L 07/22/23 08:13
Plt Count 228 10^3/uL (130-400) 07/22/23 08:13
Sodium 136 mmol/L (135-145) 07/22/23 08:13
Potassium 3.6 mmol/L (3.5-5.1) 07/22/23 08:13
Chloride 99 mmol/L (98-107) 07/22/23 08:13
Carbon Dioxide 27 mmol/L (22-30) 07/22/23 08:13
BUN 30 mg/dl (9-20) H 07/22/23 08:13
Creatinine 2.6 mg/dL (0.7-1.3) H 07/22/23 08:13
eGFR 24.78 07/22/23 08:13
Glucose 112 mg/dl (70-99) H 07/22/23 08:13
Calcium 8.3 mg/dl (8.4-10.2) L 07/22/23 08:13
Phosphorus 4.5 mg/dl (2.5-4.5) 07/22/23 08:13
Albumin 3.4 g/dl (3.5-5.0) L 07/17/23 12:52
Physical Exam
-
Vital Signs:
Vital Signs
Temp Pulse Resp BP Pulse Ox
97.2 F 73 16 110/66 93
07/22/23 07:15 07/22/23 09:09 07/22/23 07:15 07/22/23 09:09 07/22/23 07:15
Cardiovascular:: Regular rate and rhythm
Respiratory:: Bilateral: Coarse
Lung Excursion:: Normal
Abdomen:: Nontender
Bowel Sounds:: Normal
Extremity Edema:: None: Bilateral:
Gonzalez Catheter: No
[2023-07-22 12:38] VITALS: BP 113/75
[2023-07-22 15:10] VITALS: BP 113/74
[2023-07-22 19:17] VITALS: BP 122/84
[2023-07-22] MEDS: FLUSH (NSS) 1 FLUSH IV (20:39)
[2023-07-22] MEDS: LEXAPRO 5 MG PO (22:11)
[2023-07-22] MEDS: REMERON 7.5 MG PO (22:11)
[2023-07-22 23:09] VITALS: BP 121/83
[2023-07-23 03:16] VITALS: BP 113/81
[2023-07-23 05:32] VITALS: BMI 21.0
[2023-07-23 06:00] VITALS: BMI 21.0
--- NOTE | 2023-07-23 06:56 | W.PN.HOSP.TC ---
Addendum entered and electronically signed by Lorraine Prieto MD 07/23/23 11:32:
Mild elevation TSH, T4 wnl
likely non-thyroidal abnormality
Outpt follow up 1 month repeat Thyroid function test recommended
Original Note:
Today's Communication/Plan
-
Discharge
Assessment / Plan
Assessment / Plan
Physical Exam
General: No Apparent Distress
HEENT: Normocephalic and Atraumatic
Respiratory: Negative Wheezes or Rales
Cardiac: Regular Rhythm and S1/S2
GI: Soft and Nontender
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
Neuro: Awake Alert Conversant
Psych: Calm
Assessment:
Delirium of unclear etiology suspect underlying dementia vs pseudodementia (discussed with patient's son Esteban who reports noting signs of cognitive decline for the past few years)
Likely Metabolic Encephalopathy with multiple medical issues likely contributing as well.
- CT head negative
- B12, Folate, TSH/T4, Ammonia relatively wnl (mild TSH elevation noted 07/15 despite normal day prior, T4 however wnl, repeat TFTs recommended in 1 month)
- Cultures NGTD
-Intermittent confusion noted, ing, waxing waning throughout day
-Discussed with patient's son, noted incident 07/18 around noon patient confused yelling at staff thinking he was on a boat as witnessed by [id number] during visit
-Psych eval appreciated unspecified depression adjustment d/o, prn ativan anxiety started, home remeron resumed, doses ativan and remeron later reduced d/t concern sedation. Alertness subsequently appears improved though varies throughout the day.
-patient since improved. outpt follow up with neurology recommended
ESRD on HD
- M/W/F
- Nephrology following
- RCW cath with redness mildly surrounding skin since resolved
-empiric abx discontinued, monitor off, no significant signs infection noted since
Acute on Chronic HFrEF
Worsening HF
CXR in eval HD cath d/t moment confusion where patient had removed dressing incidentally noted worsening pulmonary edema despite stable respiratory status room air
Bilateral moderate pleural effusion
- volume management with HD as per nephro
-nasal cannula supplementation prn
-IR eval appreciated s/p thoracentesis 07/18
-Cardio eval appreciated home metoprolol increased due to worsening tachycardia, tachycardia improved, blood pressure tolerating
-ECHO appreciated worsening EF and MR, consideration ICD placement and/or Valve intervention to be pursued outpatient as per cardio.
Chronic hypotension
- continue midodrine
PAD
- continue ASA
Hx DM type 2
-Past and recent A1c consistently nondiabetic
- FS relatively well within goal, minimal/insignificant amt of insulin correction required during stay
-routine FS discontinued, unnecessary at this time.
Stage 2 sacral pressure injury, POA
cont local wound care
MRSA screen positive
DVT ppx: Heparin
Code: Full
Medically stable for discharge back to SNF with outpatient follow up recommendations.
discussed with patient and his son Esteban
I spent a total of 40 minutes with the patient or on the floor. More than 50% of this time involved counseling and coordination of care.
Anticipated Discharge: Today
Subjective/Interval History
-
Date of Service: July 23, 2023
No acute distress resting comfortably in bed. denies new acute issues at this time. report feeling well.
Objective Data
-
Vital Signs:
Vital Signs
Temp Pulse Resp BP Pulse Ox
97.3 F 107 18 113/81 99
07/23/23 03:16 07/23/23 03:16 07/23/23 03:16 07/23/23 03:16 07/23/23 03:16
I&O
07/21/23 07/22/23 07/23/23
06:59 06:59 06:59
Intake Total 120 / 120 600 / 600 660 / 660
Balance 120 / 120 600 / 600 660 / 660
[2023-07-23 07:10] VITALS: BP 109/69
[2023-07-23] MEDS: LOW STRENGTH ASPIRIN 81 MG PO (09:02)
[2023-07-23] MEDS: THERAGRAN 1 TABLET PO (09:03)
[2023-07-23] MEDS: HEPARIN 5000 UNITS SC (09:03)
[2023-07-23] MEDS: TOPROL XL 25 MG PO (09:03)
[2023-07-23] MEDS: PROTONIX 40 MG PO (09:03)
[2023-07-23] MEDS: LIPITOR 80 MG PO (09:03)
[2023-07-23] MEDS: ProAmatine 10 MG PO ×2 (09:04→13:29)
[2023-07-23 11:00] VITALS: BP 116/73
--- NOTE | 2023-07-23 11:30 | W.DCSUMMARY ---
Discharge Summary
Discharge Data
Date of Admission: 07/14/23
Date of Discharge: 07/23/23
-
Pending Results: Yes
Additional Pending Results:
Effusion pathology results
Hospital Course
78M with PMHx of ESRD on HD, clogged R AVF, now with R IJ tunneled HD cath (placed 2 weeks ago prior to hospitalization), HFrEF, PAD, s/p L AKA, R BKA with phantom pains, chronic hypotension, BPH, Hx of HTN was sent from SNF with worsening
confusion, asking to talk to his who has been for years. As per relative (who is a RN) bedside. He had similar episodes on and off before. In ED, no leukocytosis, no fever, XR chest with chronic changes, patient anuric. Concern for
small red bump upon insertion of HD catheter into IJ. AVF on RUE without pain or redness. There was also concern for new onset afib but this was ruled out as per cardiology review. Delirium of unclear etiology suspect underlying dementia vs
pseudodementia (discussed with patient's son Esteban who reports noting signs of cognitive decline for the past few years). Likely Metabolic Encephalopathy with multiple medical issues contributing as well. CT head negative. B12, Folate, Ammonia
wnl. Mild TSH elevation noted, T4 however wnl, repeat TFTs recommended in 1 month. Cultures NGTD. Intermittent confusion noted, , waxing waning throughout day. Discussed with patient's son, noted incident 07/18 around noon patient
confused yelling at staff thinking he was on a boat as witnessed by [id number] during visit. Psych eval appreciated unspecified depression adjustment d/o, prn ativan anxiety started, home remeron resumed, doses ativan and remeron later reduced
d/t concern sedation. Alertness subsequently appears improved though varies throughout the day. Outpt follow up with neurology recommended. ESRD on HD, M/W/F, Nephrology following. RCW cath with redness mildly surrounding skin since resolved.
Empiric abx discontinued, monitored off, no significant signs infection noted since. Acute on Chronic HFrEF, Worsening HF, CXR in eval HD cath d/t moment confusion where patient had removed dressing incidentally noted worsening pulmonary edema
despite stable respiratory status room air. HD cath remain in good position. Bilateral moderate pleural effusion, volume management with HD as per nephro continued, patient intermittently required nasal cannula supplementation. IR eval evaluated
and performed thoracentesis 07/18 450 cc from right side. Cardio evaluated and home metoprolol increased due to worsening tachycardia, tachycardia improved, blood pressure tolerating. ECHO appreciated worsening EF and MR, consideration ICD
placement and/or Valve intervention to be pursued outpatient as per cardio. Medically stable, patient was discharged back to SNF with outpatient follow up recommendations.
Discharge Plan
-
Patient Disposition: Jail/SNF
Discharge Diagnosis/Procedures: Delirium, Acute Metabolic Encephalopathy, resolved
Arrhythmia with PACs, but in NSR
Chronic mild pulmonary edema with chronic loculated b/l pleural effusions and underlying parenchymal disease
Heart Failure with reduced ejection fraction
Mitral regurgitation
Bilateral pleural effusions status post right thoracentesis
End stage renal disease on dialysis through right internal jugular catheter
Hypotension on midodrine
hyperlipidemia
Coronary artery disease status
Ex-smoker
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
GERD
Chronic anemia, multifactorial
Depression
BPH
Legally blind
History bladder cancer
Hyperphosphatemia
clotted fistula
Suspected underlying Dementia
Condition: Fair
Diet: 2 Gram Sodium
Additional Diets: 2 gram potassium restriction, fluid restriction 1200 mL (40 oz)
Activity: With assistance
Driving Restrictions: No driving
Bathing Restrictions: None
Blood Work: Please repeat CBC and BMP with primary care provider in 1 week of discharge
Repeat Thyroid function test with primary care provider in 1 month of discharge
Others Tests: Follow up with primary care provider for outpatient sleep study in 2-4 weeks of discharge.
Activity Restrictions/Additional Instructions:
Wound Care Instructions
Sacrum:clean with soap and water, silicone foam change q 2-3 days and prn soilage.
air mattress with turning schedule
offloading cushion when sitting
increase protein in diet
Follow up at wound care center, *If not healed. call for an appointment.
Please follow up with primary care provider in 1 week of discharge, keep your appointment with cardiology, and follow up with neurology in 2-4 weeks of discharge for formal neurocognitive testing.
atorvastatin 80 mg tablet 80 mg PO DAILY High cholesterol
escitalopram oxalate 5 mg tablet 5 mg PO HS Mental Health/Anxiety
aspirin 81 mg chewable tablet 81 mg PO DAILY Coronary Artery Disease
pantoprazole 40 mg tablet,delayed release 40 mg PO BID Gastrointestinal issue
docusate sodium 100 mg capsule 100 mg PO BID Constipation
sevelamer HCl 800 mg tablet 1,600 mg PO MEALS Kidney Disease
bisacodyl 10 mg rectal suppository (Dulcolax (bisacodyl)) [address] DAILYPRN PRN constipation
midodrine 10 mg tablet 10 mg PO TID for Hypotension
acetaminophen 325 mg tablet (Tylenol) 650 mg PO Q6H PRN mild pain 05/24/23
cholecalciferol (vitamin D3) 50 mcg (2,000 unit) tablet 50 mcg PO DAILY Supplement 05/24/23
honey 80 % topical gel (MediHoney (honey)) 1 applic topical QPM apply to sacrum 05/24/23
potassium, sodium phosphates 280 mg-160 mg-250 mg oral powder packet (Phos-NaK) 1 packet PO BID Kidney Disease 05/24/23
New/Changed Medications
metoprolol succinate 25 mg tablet,extended release 24 hr 25 mg PO BID, increased from daily, For heart failure and tachycardia
mirtazapine 7.5 mg tablet 7.5 mg PO HS Depression, reduced from 15mg due to concern oversedation
multivitamin with folic acid 400 mcg tablet (Tab-A-Jennifer) 1 tab PO DAILY Nutrition support (b complex w/ Vit C discontinued)
Please take medications as prescribed/recommended and follow up with primary care provider and/or other healthcare provider involved in your care for refills and/or further adjustments to your medication regimen as necessary.
Referrals:
Ant Ramos MD [Active] - 08/16/23 1:20 pm
Donald Dowd MD [Family Provider] - in one week
Caron Ferrer DO [Active] - in two to four weeks
Prescriptions:
New
metoprolol succinate 25 mg Tablet Extended Release 24 Hr
25 mg PO BID 30 Days Qty: 60 0RF
mirtazapine 7.5 mg Tablet
7.5 mg PO HS 30 Days Qty: 30 0RF
multivitamin with folic acid [Tab-A-Jennifer] 400 mcg Tablet
1 tab PO DAILY 30 Days Qty: 30 0RF
Continued
atorvastatin 80 MG tablet
80 mg PO DAILY
escitalopram oxalate 5 MG tablet
5 mg PO HS
pantoprazole 40 MG tablet,delayed release (DR/EC)
40 mg PO BID
aspirin 81 MG tablet,chewable
81 mg PO DAILY
sevelamer HCl 800 mg Tablet
1,600 mg PO MEALS
docusate sodium 100 mg Capsule
100 mg PO BID
bisacodyl [Dulcolax (bisacodyl)] 10 mg Suppository
[address] DAILYPRN PRN (Reason: constipation)
midodrine 10 mg tablet
10 mg PO TID
Rx Instructions:
hold if SBP>140.
acetaminophen [Tylenol] 325 mg Tablet
650 mg PO Q6H PRN (Reason: mild pain)
potassium, sodium phosphates [Phos-NaK] 280-160-250 mg Powder In Packet
1 packet PO BID
cholecalciferol (vitamin D3) 50 mcg (2,000 unit) Tablet
50 mcg PO DAILY
MediHoney (honey) 80 % Gel
1 applic TOPICAL QPM
Rx Instructions:
apply to sacrum topically every evening shift for wound care.
Discontinued
tamsulosin 0.4 MG capsule
0.4 mg PO HS
melatonin 3 mg Tablet
6 mg PO HS
mirtazapine 15 mg Tablet
15 mg PO HS
acetaminophen [Tylenol] 325 mg Tablet
650 mg PO Q4HPRN PRN (Reason: temp>100F)
B-complex with vitamin C Tablet
1 tab PO DAILY
metoprolol succinate 25 mg tablet extended release 24 hr
25 mg PO DAILY
Discharge Orders:
Discharge Patient (As Directed); Ordered 07/23/23
Ordered By: Lorraine Prieto
Discharge Date and Time
Discharge Date/Time: 07/23/23 17:04
Print Language: OCCITAN
--- NOTE | 2023-07-23 11:39 | CM ---
Addendum entered by Chelsea Hutchinson RN 07/23/23 11:43:
CM informed patient's son Esteban via telephone of discharge. Esteban in agreement with discharge at this time.
Medical necessity and transport forms on chart.
Original Note:
Reviewed the chart notes. Patient is a long-term resident of [facility].
Plan: Discharge back to [facility] when medically stable. Patient received HD at [facility].
Call report to: [phone]
Fax report to: [phone]
--- NOTE | 2023-07-23 11:57 | W.PN.NEPH.PH ---
Today's Communication / Plan
-
Discharge with dialysis tomorrow at [facility]
Assessment/Plan
-
IMP:
Delirium
Arrhythmia with PACs, but in NSR
Chronic mild pulmonary edema with chronic loculated b/l pleural effusions and underlying parenchymal disease
Right IJ HD catheter
HFrEF 25-30%, DD stage2
Bilateral pleural effusions
ESRD on HD-MWF RUE AVG [facility]
HTN history with midodrine-dependent hypotension
HLD
History CAD with GA
Ex-smoker
DM 2-diet controlled, DM nephropathy
PAD right BKA and left AKA
GERD
Chronic anemia, multifactorial
Depression
BPH
Legally blind
History bladder cancer
Hyperphosphatemia
clotted AVG s/p declot
Plan:
Discharge today
HD will be scheduled next for Monday at [facility]
Maintain midodrine for chronic hypotension
CVC site looks good no sign of infection
Now off antibiotics
BP stable on midodrine
-
-
Date of Service: July 23, 2023
CC / HPI / ROS
-
Chief Complaint:
ESRD
History of Present Illness:
BP stable on midodrine support
ESRD MWF
Review of Systems:
no cp or soib
feels at baseline
Labs
-
Labs:
WBC 5.5 10^3/uL (4.8-10.8) 07/22/23 08:13
RBC 3.86 10^6/uL (4.70-6.10) L 07/22/23 08:13
Hgb 12.0 g/dL (13.0-18.0) L 07/22/23 08:13
Hct 38.9 % (39.0-52.0) L 07/22/23 08:13
Plt Count 228 10^3/uL (130-400) 07/22/23 08:13
Sodium 136 mmol/L (135-145) 07/22/23 08:13
Potassium 3.6 mmol/L (3.5-5.1) 07/22/23 08:13
Chloride 99 mmol/L (98-107) 07/22/23 08:13
Carbon Dioxide 27 mmol/L (22-30) 07/22/23 08:13
BUN 30 mg/dl (9-20) H 07/22/23 08:13
Creatinine 2.6 mg/dL (0.7-1.3) H 07/22/23 08:13
eGFR 24.78 07/22/23 08:13
Glucose 112 mg/dl (70-99) H 07/22/23 08:13
Calcium 8.3 mg/dl (8.4-10.2) L 07/22/23 08:13
Phosphorus 4.5 mg/dl (2.5-4.5) 07/22/23 08:13
Albumin 3.4 g/dl (3.5-5.0) L 07/17/23 12:52
Physical Exam
-
Vital Signs:
Vital Signs
Temp Pulse Resp BP Pulse Ox
97.3 F 78 18 116/73 97
07/23/23 11:00 07/23/23 11:00 07/23/23 11:00 07/23/23 11:00 07/23/23 11:00
Cardiovascular:: Regular rate and rhythm
Respiratory:: Bilateral: Coarse
Lung Excursion:: Normal
Abdomen:: Nontender and Soft
Bowel Sounds:: Normal
Extremity Edema:: None: Bilateral:
Gonzalez Catheter: No
[2023-07-23] MEDS: HEPARIN SC (16:12)
[2023-07-23 16:40] VITALS: BP 117/75
== END 2023-07-23 17:04 | DRG 884 ==
LOC: 2 NORTH 19:02
PROVIDERS: Internal Medicine; Radiology Vascular & Interventional Radiology; Specialist; ADMITTING PHYSICIAN Internal Medicine; ATTENDING PHYSICIAN Internal Medicine; CONSULT PHYSICIAN Internal Medicine; CONSULT PHYSICIAN Internal Medicine Cardiovascular Disease; CONSULT PHYSICIAN Psychiatry & Neurology Psychiatry; EMERGENCY PHYSICIAN Emergency Medicine; FAMILY PHYSICIAN Family Medicine
PROC: 5A1D70Z Performance of Urinary Filtration, Intermittent, Less than 6 Hours Per Day (ICD-10-PCS; 2023-07-17)
PROC: 0W993ZZ Drainage of Right Pleural Cavity, Percutaneous Approach (ICD-10-PCS; 2023-07-19)
DX: F03.90 Unspecified dementia, unspecified severity, without behavioral disturbance, psychotic disturbance, mood disturbance, and anxiety (principal); N18.6 End stage renal disease; G93.41 Metabolic encephalopathy; I50.23 Acute on chronic systolic (congestive) heart failure; I13.2 Hypertensive heart and chronic kidney disease with heart failure and with stage 5 chronic kidney disease, or end stage renal disease; I47.10 Supraventricular tachycardia, unspecified; J90 Pleural effusion, not elsewhere classified; F05 Delirium due to known physiological condition; J81.1 Chronic pulmonary edema; R09.02 Hypoxemia; E11.22 Type 2 diabetes mellitus with diabetic chronic kidney disease; E11.40 Type 2 diabetes mellitus with diabetic neuropathy, unspecified; E78.00 Pure hypercholesterolemia, unspecified; I25.10 Atherosclerotic heart disease of native coronary artery without angina pectoris; K21.9 Gastro-esophageal reflux disease without esophagitis; N40.0 Benign prostatic hyperplasia without lower urinary tract symptoms; I95.89 Other hypotension; G54.6 Phantom limb syndrome with pain; I48.91 Unspecified atrial fibrillation; I08.1 Rheumatic disorders of both mitral and tricuspid valves; E11.51 Type 2 diabetes mellitus with diabetic peripheral angiopathy without gangrene; D63.8 Anemia in other chronic diseases classified elsewhere; H54.8 Legal blindness, as defined in USA; B95.62 Methicillin resistant Staphylococcus aureus infection as the cause of diseases classified elsewhere; E83.39 Other disorders of phosphorus metabolism; L89.152 Pressure ulcer of sacral region, stage 2; F32.A Depression, unspecified; I25.5 Ischemic cardiomyopathy; F41.9 Anxiety disorder, unspecified; I44.1 Atrioventricular block, second degree; I25.2 Old myocardial infarction; Z11.52 Encounter for screening for COVID-19; Z87.891 Personal history of nicotine dependence; Z99.2 Dependence on renal dialysis; Z89.511 Acquired absence of right leg below knee; Z89.612 Acquired absence of left leg above knee; Z79.82 Long term (current) use of aspirin; Z95.5 Presence of coronary angioplasty implant and graft; Z85.51 Personal history of malignant neoplasm of bladder
CPT/HCPCS: 88305; 32555; 70450; 71045; 71046; 80048; 80053; 80202; 82140; 82607; 82746; 82805; 82945; 82962; 83036; 83615; 83735; 83986; 84100; 84157; 84439; 84443; 84478; 85025; 85027; 87015; 87040; 87070; 87147; 87205; 87502; 87811; 88112; 89051; 92523; 93005; 93306; 99285; G0257; P9047

== ENCOUNTER 2023-09-28 11:53 | Day surgery (SDC) | payer MEDICARE, SELFPAY ==
[2023-09-28] VITALS (11 sets, daily range): BP systolic 95–118; BP diastolic 48–63
[2023-09-28] MEDS: NSS 500 IV (12:34)
[2023-09-28] MEDS: BACTROBAN NASAL 1 GRAM NASAL (12:34)
[2023-09-28] MEDS: PERIDEX 0.12% ORAL RINSE 15 ML PO (12:34)
[2023-09-28 12:42] LABS: Blood Urea Nitrogen 45 mg/dl (9-20); Calcium 8.6 mg/dl (8.4-10.2); Carbon Dioxide 21 mmol/L (22-30); Chloride 103 mmol/L (98-107); Glucose 62 mg/dl (70-99); Sodium 135 mmol/L (135-145); eGFR 28.71
[2023-09-28 12:46] LABS: Hematocrit 35.5 % (39.0-52.0); Hemoglobin 11.3 g/dL (13.0-18.0); Mean Corp Hgb Conc. 31.8 g/dL (33.0-37.0); Mean Corpuscular Hgb 32.4 pg (27.0-31.0); Mean Corpuscular Volume 101.7 fL (80.0-94.0); Mean Platelet Volume 9.9 fL (7.4-10.4); Platelet Count 234 10^3/uL (130-400); Red Blood Cell Count 3.49 10^6/uL (4.70-6.10); White Blood Cell Count 7.4 10^3/uL (4.8-10.8)
[2023-09-28 12:51] LABS: INR 1.34; PT 16.4 Sec (11.4-14.6)
[2023-09-28 12:53] LABS: APTT 37.4 Sec (23.4-35.0)
--- NOTE | 2023-09-28 12:55 | PTCARENOTE ---
[facility] called to try and obtain accurate medication list. Left a message.
[2023-09-28 14:02] LABS: Glucose - Point of Care 66 mg/dl (70-99)
[2023-09-28] MEDS: DEXTROSE 50% SYRINGE 12.5 GRAMS IV (14:03)
--- NOTE | 2023-09-28 14:16 | W.SUR.PREOP ---
Pre-Operative Surgical Note
-
I have examined this patient prior to the performance of the scheduled procedure.
The patient's condition is unchanged from the time of the current History and
Physical and the patient is able to undergo the scheduled procedure.
[2023-09-28 14:27] LABS: Glucose - Point of Care 143 mg/dl (70-99)
--- NOTE | 2023-09-28 16:20 | W.SUR.POST ---
Surgical Immediate Post Op
Note
Pre Op Diagnosis: ESRD
Post Op Diagnosis: ESRD
Procedure Performed: LUE AV fistula with PTFE gore graft
Primary Surgeon: Pelon Nazario MD
Elementary School Librarian: DEEPTHI Thornton
Anesthesia: GETA
Estimated Blood Loss: 10ml
Fluids: See Anesthesia flow sheet
Drains/Shunts: N/A
Specimens/Cultures: N/A
Doppler/Duplex/Angio (Y/N): Y
Complications: None
Operative Findings: + thrill
[2023-09-28 16:40] LABS: Glucose - Point of Care 98 mg/dl (70-99)
--- NOTE | 2023-09-28 16:45 | W.[place]-PDMP ---
[place]-PDMP
-
Checked the [place]- Prescription Drug Monitoring Program website, no red flags identified; safe to proceed with prescription.
--- NOTE | 2023-09-29 10:20 | OR.RPT ---
Operative Report
Operative Report
PROCEDURE DATE: 09/28/2023
Preoperative diagnosis: End-stage renal disease on hemodialysis.
Postoperative diagnosis: Same
Procedure: Placement of left upper extremity upper arm AV graft with 7 mm x 4 mm Conger Propaten graft.
Surgeon: Aravind
Watch Technician: THEODORE Bland, required for all aspects of procedure including assistance with traction/countertraction, following of suture line, assistance with closure.
Complications: None
Anesthesia: General
Indications for procedure:
End-stage renal disease on hemodialysis. Recurrently thrombosed, nonsalvageable right upper extremity AV graft. Brought for new graft placement. Veins not suitable for fistula creation. Basilic vein was reasonable in the proximal upper arm and
therefore I felt I could expose that as the outflow for the graft (the remainder the basilic vein was not as good or usable for a standard fistula/basilic vein transposition). Risk/benefits/alternatives of AV graft creation were all discussed with
the patient and his son. They understood all wish to proceed.
Description of procedure:
Patient was identified brought to the operating room placed on the table in supine position. After the adequate administration of anesthesia he was prepped and draped in the standard surgical fashion. A standard preoperative timeout was undertaken
and everybody was in agreement the plan. A longitudinal incision was made in the distal medial upper arm that was carried through skin subcutaneous tissue. The brachial artery was carefully identified and dissected away from surrounding structures
and great care to avoid any injury to structures. Vesseloops were passed around proximally distally. These were double looped but not yet tightened. Next I made a longitudinal incision in the proximal medial upper arm just distal to the axilla.
This was carried through skin subcutaneous tissue. I then identified in the deeper tissues the basilic vein. It was a very sizable suitable vein here. I carefully circumferentially dissected and passed Vesseloops around approximately distally.
Now I created a subcutaneous tunnel between the 2 incision sites with a Edison tunneler. I then passed a 7 mm x 4 mm tapered Conger Propaten graft through the tunnel. Next I gave the patient 3 settings of intravenous heparin. I tightened my double
looped Vesseloops on the artery proximally distally. I made an arteriotomy with an 11 blade and extended using a Gould is a. I beveled the 4 mm end of the graft and sewed an end to side anastomosis using a running Conger CV 6 suture. I completed
and tied down my suture line. I then clamped the graft and then released my Vesseloops on the artery. There is excellent pulsatile flow into the graft. At this point I turned my attention to the more proximal upper arm incision. I double up and
tight my Vesseloops proximally distally on the vein. I made a venotomy with an 11 blade extended using a Gould scissor. I then trimmed and beveled the 7 mm end of the graft and sewed an end to side anastomosis using a running Conger CV 6 suture.
Prior to completing and tying down my suture line I backbled the cahto vein and flushed out the graft. I then completed and tied down my suture line. I released my Vesseloops on the vein and then released my graft clamp. There is an excellent
thrill throughout the graft and into the outflow vein. The vein plumped up nicely. I then meticulously achieved hemostasis of both incision sites. I then irrigated and confirmed full hemostasis. I then closed in layers using 3-0 Vicryl followed
by 4-0 Monocryl subcuticular stitch and both incision sites. Dermabond was applied to both sites. The patient tolerated the procedure well. He had a good palpable radial pulse at the wrist upon completion.
== END 2023-09-28 18:45 ==
LOC: CATH 11:53
PROVIDERS: ATTENDING PHYSICIAN Surgery Vascular Surgery; FAMILY PHYSICIAN Internal Medicine
DX: N18.6 End stage renal disease (principal); Z99.2 Dependence on renal dialysis; Z79.82 Long term (current) use of aspirin; E10.22 Type 1 diabetes mellitus with diabetic chronic kidney disease; I13.2 Hypertensive heart and chronic kidney disease with heart failure and with stage 5 chronic kidney disease, or end stage renal disease; I50.42 Chronic combined systolic (congestive) and diastolic (congestive) heart failure; Z87.891 Personal history of nicotine dependence; Z79.4 Long term (current) use of insulin; Z79.02 Long term (current) use of antithrombotics/antiplatelets
CPT/HCPCS: 36830; 80048; 82962; 85027; 85610; 85730; 86850; 86900; 86901; C1768

== ENCOUNTER 2023-10-01 18:53 | Inpatient (IN) | payer MEDICARE, SELFPAY ==
[2023-10-01] VITALS (62 sets, daily range): BP systolic 34–192; BP diastolic 14–120; PULSE 2–70
[2023-10-01 14:25] LABS: Glucose - Point of Care 75 mg/dl (70-99)
--- NOTE | 2023-10-01 14:30 | ED.GENMED ---
History of Present Illness
General
Chief Complaint: Unresponsive
Source: records and ambulance crew
Time Seen by Provider: 10/01/23 14:29
Travel History
Have you had any contact with someone who has COVID-19?: Unable to Answer
Do you have any symptoms of coronavirus? Fever > 100 degrees, chills, cough, shortness of breath, sore throat, loss of taste or smell, muscle aches, or headache?: Unable to Answer
History of Present Illness
History of Present Illness:
78-year-old male with multiple medical problems presents the emergency department with unresponsiveness first noted approximately 10 AM as per EMS staff. Upon their arrival, patient's pulse was in the 70s with a systolic blood pressure in the 60s
to 70s. They were unable to obtain a pulse ox. He was given a 'push dose' of epinephrine x 3 without resolution of his hypotension. He remains unresponsive. Medics applied a left upper extremity IO and gave 400 cc of normal saline and a
nonrebreather.
Past History
Past History
ED Past Medical History: CAD, Cancer (Bladder), GERD, HTN, Hypercholesterolemia, IDDM, [place], Renal failure, Valvular disease and Other (BPH)
ED Past Surgical History: Cardiac, Orthopedic (Amputation Left AKA, Right BKA,) and Urological (TURP)
Social History
Tobacco: Former smoker
Alcohol: None
Drug: None
Personal:
Living: long term
Family History
Family History: Negative Diabetes, Hypertension or CAD
Phy Exam
Physical Exam
Physical Exam:
GENERAL: Unresponsive, chronically ill-appearing
EYE: pupils equal and reactive
NECK: Supple, no significant adenopathy.
ENT: o/p clr, mm very dry
CARDIAC: Regular rate and rhythm .
LUNGS: Equal but decreased breath sounds bilaterally, no acute respiratory distress, no wheezes/rales/rhonchi
ABDOMEN: Soft, without focal tenderness, no r/g
NEUROLOGICAL: Moans to painful stimuli, no posturing noted, unable to perform full neurological exam given unresponsiveness
SKIN: Slightly cool and dry, skin intact.
MUSCULOSKELETAL: No edema, well perfused. Left AKA, right BKA
PSYCH: Unresponsive
Course
Orders/Labs/Results
Orders:
Orders
10/01/23 14:26
Electrocardiogram (*1) Urgent
Reason for Study: Other
Other Reason for Exam: Possible Sepsis
IV Insert/Care/Rem.- Treatment PRN
CR Chest Portable - 1 View Urgent
Comment:
Reason For Exam: unresponsive
Reason Study Needs to be Portable: Unable to Transport
10/01/23 14:27
EKG- Treatment ONCE
10/01/23 14:29
NORepinephrine 4 MG/250 ML [Levophed] 4 mg in 250 ml .ROUTE .STK-MED
10/01/23 14:30
CT Head W/o Iv Contrast Urgent
Comment:
Reason For Exam: unresponsive
NORepinephrine 4 MG/250 ML [Levophed] 4 mg in 250 ml IV NOW
Initial dose in mcg/min, then titrate:: 2
Titrate to keep:: MAP > 65 mmHg
Titrate by mcg/min:: 1-2 mcg/min
Frequency of titrations (minutes):: 5
Maximum dose in ICU in mcg/min:: 30
Maximum dose in IMU in mcg/min:: 8
Maximum dose in IVU in mcg/min:: 4
Begin to taper infusion when:: Remained at goal for 4hrs
Taper by mcg/min:: 1-2 mcg/min
Frequency of taper (minutes) if patient maintains goal:: 30
Taper to off?: Yes
If infusion off & no longer maintaining goal:: Contact Provider
10/01/23 15:22
Complete Blood Count/With Diff Urgent
Comprehensive Metabolic Panel Urgent
Prothrombin Time Urgent
Venous Blood Gas Urgent
%Oxygen/Room Air: 100
Blood Culture Q30M
MAU Source: Blood/Venous
Specimen Description:
Comment: FROM 2 SEPARATE SITES
Blood Culture Q30M
MAU Source: Blood/Venous
Specimen Description:
Comment: FROM 2 SEPARATE SITES
10/01/23 16:21
Lactic Acid Urgent
10/01/23 16:38
Piperacillin/Tazo 4.5 Gram [Zosyn] 4.5 gram in 100 ml IV NOW
Vancomycin 1 Gram/200 ml [Vancocin] 1 gram in 200 ml IV NOW
10/01/23 18:20
Admit/Transfer Patient As Directed
Co-Sign Provider:
Level of Care: Inpatient admission
Assign to:: ICU
Physician / Group: Hospitalist
Diagnosis: Probable Sepsis, unresponsiveness
Reason for Hospitalization: Probable Sepsis, unresponsiveness
Expected length of stay greater than two midnights?: Yes
ELOS- Estimated Length of Stay in days: 5
I certify the patient meets the requirements for IP care: Yes
10/01/23 18:22
Code Status As Directed
Resuscitation Status: Full Code
10/01/23 18:45
Lactic Acid Q4H
Comment: ON ICE, CANCEL 2ND ORDER IF FIRST LACTIC ACID LEVEL <2
10/01/23 19:36
0.9% Sodium Chloride 1000 ml [Nss] 1,000 ml IV 50 mls/hr
Collagenase [Santyl Ointment] 1 applic TOPICAL DAILY PRN
Dextrose 50%-Water [Dextrose 50% Syringe] 12.5 grams IV [id number] PRN
Glucagon [GlucaGen] 1 mg IM PRN PRN
10/01/23 19:36
Activity As Directed
Activity Level: Bedrest
Bedside Glucose Monitoring As Directed
Frequency: AC&HS
Additional Instructions:: Change to q6h if pt on TPN, tube feeding or not eating
Bedside Glucose Monitoring As Directed
Frequency: AC&HS
Additional Instructions:: Change to q6h if pt on TPN, tube feeding or not eating
Intake/ Output As Directed
Frequency: Per unit guidelines
Vital Signs As Directed
Frequency: Per unit guidelines
DX Deep Vein Thrombosis Video Routine
10/01/23 20:00
VANCOMYCIN Pharmacy to Dose [VANCOCIN Pharmacy to Dose] 1 each Pharmacy To Prepare [Call Pharmacy To Prepare] 0 ml IV PER PROTOCOL
10/01/23 22:53
Respiratory Culture/Gram Stain Routine
MAU Source: Sputum
Specimen Description:
Date Specimen was Collected: 10/01/23
Time Specimen was Collected: 22:52
Comment: IF NOT OBTAINED IN ED
10/02/23 00:00
Heparin 5,000 units SC Q8
Piperacillin/Tazo 2.25 Gram [Zosyn] 2.25 grams in 50 ml IV Q8H
10/02/23 01:38
Complete Blood Count/No Diff IN AM
Comprehensive Metabolic Panel IN AM
Glycohemoglobin (HgbA1c) IN AM
10/02/23 Breakfast
NPO
Allow oral meds: Yes
Allow clear liquids: Sips of Clears
NPO with Ice Chips: Yes
10/02/23 07:30
Insulin Aspart Corrective Low [Novolog Flexpen-Low Resistance] See Protocol SC AC
10/02/23 08:00
Pantoprazole [Protonix IV] 40 mg IV DAILY
10/02/23 18:00
Collagenase [Santyl Ointment] 1 applic TOPICAL QPM
Abnormal Lab Results
10/01/23 10/01/23
15:22 16:21
WBC 12.6 H 10^3/uL
(4.8-10.8)
RBC 3.23 L 10^6/uL
(4.70-6.10)
Hgb 10.8 L g/dL
(13.0-18.0)
Hct 33.5 L %
(39.0-52.0)
MCV 103.7 H fL
(80.0-94.0)
MCH 33.4 H pg
(27.0-31.0)
MCHC 32.2 L g/dL
(33.0-37.0)
RDW 18.4 H %
(11.5-14.5)
Abs Immat Gran (auto) 0.1 H 10^3/uL
(0-0.05)
Absolute Neuts (auto) 11.1 H 10^3/uL
(1.4-6.5)
Absolute Lymphs (auto) 0.5 L 10^3/uL
(1.2-3.4)
Absolute Monos (auto) 0.7 H 10^3/uL
(0.1-0.6)
Neutrophils % 87.9 H %
(42.2-75.2)
Lymphocytes % 4.1 L %
(20.5-51.1)
PT 16.7 H Sec
(11.4-14.6)
VBG pH 7.18 L*
(7.32-7.43)
VBG pCO2 58 H mmHg
(35-48)
VBG pO2 64 H mmHg
(30-50)
VBG HCO3 21.6 L mmol/L
(22-27)
Potassium 5.7 H mmol/L
(3.5-5.1)
Chloride 108 H mmol/L
(98-107)
BUN 49 H mg/dl
(9-20)
Creatinine 3.4 H mg/dL
(0.7-1.3)
Lactic Acid 2.4 H mmol/L
(0.7-2.0)
Alkaline Phosphatase 156 H U/L
(38-126)
10/01/23 15:22
10/01/23 15:22
Vital Signs
Initial and Last Documented VS:
Initial Vital Signs
Pulse
75
10/01/23 14:24
Last Documented Vital Signs
Temp Pulse Resp BP Pulse Ox
99.1 F 60 13 114/54 100
10/03/23 07:42 10/03/23 08:30 10/03/23 08:30 10/03/23 08:30 10/03/23 08:30
*Critical Care Note
Total Time (30-74mins, 75-104mins- exclusive of procedures): 35
Update Note
Update Note:
Patient presents to the Emergency Department with unresponsive
Number and Complexity of Problems Addressed at the Encounter
� Chronic conditions affecting care:
� Acute Exacerbation and/or Progression of Chronic Illness:
� Differential Diagnosis includes: But not limited to sepsis, thyroid disorder, ACS, etc. etc.
Amount and/or Complexity of Data to be Reviewed and Analyzed
� I performed an independent evaluation of and my interpretation is:
EKG:read by me,nsr 1st degree block, no ischemia
CT:No CT evidence for acute intracranial hemorrhage or transcortical infarct.
2. Moderate diffuse cerebral and cerebellar volume loss consistent with a chronic neurodegenerative disease.
3. Mild white matter leukoaraiosis in both cerebral hemispheres.
4. Minimal acute left sphenoid sinusitis.
Xrays:Mild cardiomegaly with suggestion of mild interstitial and alveolar cardiogenic pulmonary edema.
2. Small bilateral pleural effusions.
3. Moderate left lower lobe airspace consolidation which has been present since June 2023 (either chronic pneumonia or a combination of atelectasis and scarring).
4. Right IJ hemodialysis catheter in place.
Laboratory Studies:wbc elevation, possibly c/w infx...baseline renal abnl....baseline anemia (likely related to renal dz).
Other:
� Review of other/old records reveals:
� Clinical information was obtained by an independent historian: EMS and medical records. Upon review of medical records it appears the patient had a left upper extremity AV graft placed August 2023. medical staffing coordinator made aware. They had
placed an IV in the left upper extremity as he did not have this information. They are now going to place an IV in the right upper extremity we will remove the IV from the left upper extremity.
� Prescriptions/Medications Considered but not given:
� Further testing considered but not performed:
Risk of Complications and/or Morbidity or Mortality of Patient Management
� Social determinants of health affecting care:
� Discussion with other providers (PCP, Hospitalists, Consultants, etc):
� Escalation of care including admission/observation vs risk of discharge considered:Reasessmnet 434 pm Pt remains minimally responsive (opens eyes in CT scan, for ex.), pox 100% on NC now (I worry re:hypercapnea and removed NRB
to make transition to NC), ?sepsis given hypotensiion, leukocytosis with shift, mental status change ?source. Will empirically begin abx. Levophed beig weaned, he has a hx of hypotension and is on midordrine, will titrate to sbp 90. TT to
hospitalist for admission.
ED Attending Note
-
Portions of this chart may have been created with voice recognition software.� Occasional wrong word or��sound alike� substitutions may have occurred due to the inherent limitations of voice recognition software.
Discharge Plan
Departure
Patient Disposition: Admit
Date of Disposition: 10/01/23
Time of Disposition: 16:39
Presentation/result/management discussed w/ accepting MD/DO: Hospitalist
Discharge Problem:
Altered mental status, Acute hypotension
Interventions
Interventions:
*Risk Screen - Suicide Last Done: 10/01/23 14:39
*General Assessment Last Done: 10/01/23 14:39
*Neglect/Abuse Screening Last Done: 10/01/23 14:39
*ED COVID-19 Vaccine History Last Done: 10/01/23 14:25
*Nursing Disposition Last Done: 10/01/23 19:11
ED- Neurological Assessment Last Done: 10/01/23 15:10
Discharge Date and Time
Discharge Date/Time: 10/01/23 19:12
[2023-10-01] MEDS: LEVOPHED 250 IV (14:36)
[2023-10-01 15:33] LABS: % Basophils 0.6 % (0-2); % Eosinophils 1.3 % (0-6); % Immature Granulocytes 0.5 % (0-0.5); % Lymphocytes 4.1 % (20.5-51.1); % Monocytes 5.6 % (1.7-9.3); % Neutrophils 87.9 % (42.2-75.2); Absolute Basophils 0.1 10^3/uL (0-0.2); Absolute Eosinophils 0.2 10^3/uL (0-0.7); Absolute Immature Granulocytes 0.1 10^3/uL (0-0.05); Absolute Lymphocytes 0.5 10^3/uL (1.2-3.4); Absolute Monocytes 0.7 10^3/uL (0.1-0.6); Absolute Neutrophils 11.1 10^3/uL (1.4-6.5); Hematocrit 33.5 % (39.0-52.0); Hemoglobin 10.8 g/dL (13.0-18.0); Mean Corp Hgb Conc. 32.2 g/dL (33.0-37.0); Mean Corpuscular Hgb 33.4 pg (27.0-31.0); Mean Corpuscular Volume 103.7 fL (80.0-94.0); Mean Platelet Volume 9.6 fL (7.4-10.4); Nucleated Red Blood Cells % 0 % (-); Platelet Count 296 10^3/uL (130-400); Red Blood Cell Count 3.23 10^6/uL (4.70-6.10); Red Cell Dist. Width 18.4 % (11.5-14.5); Venous Blood Gas B.E. -7.1 mmol/L (-4 to +4); Venous Blood Gas HCO3 21.6 mmol/L (22-27); Venous Blood Gas O2 Sat % 91.2 %; Venous Blood Gas pCO2 58 mmHg (35-48); Venous Blood Gas pO2 64 mmHg (30-50); White Blood Cell Count 12.6 10^3/uL (4.8-10.8)
[2023-10-01 15:34] LABS: Venous Blood Gas pH 7.18 (7.32-7.43)
[2023-10-01 15:43] LABS: INR 1.37; PT 16.7 Sec (11.4-14.6)
[2023-10-01 15:51] LABS: ALT (SGPT) < 10 U/L (0-50); AST (SGOT) 43 U/L (17-59); Albumin 3.5 g/dl (3.5-5.0); Alkaline Phosphatase 156 U/L (38-126); Blood Urea Nitrogen 49 mg/dl (9-20); Calcium 8.8 mg/dl (8.4-10.2); Carbon Dioxide 22 mmol/L (22-30); Chloride 108 mmol/L (98-107); Glucose 98 mg/dl (70-99); Potassium 5.7 mmol/L (3.5-5.1); Sodium 141 mmol/L (135-145); Total Bilirubin 0.5 mg/dl (0.2-1.3); Total Protein 6.8 g/dl (6.3-8.2); eGFR 17.96
[2023-10-01 16:18] LABS: Glucose - Point of Care 83 mg/dl (70-99)
[2023-10-01 16:40] LABS: Lactic Acid 2.4 mmol/L (0.7-2.0)
[2023-10-01] MEDS: ZOSYN 100 IV (17:08)
[2023-10-01] MEDS: VANCOCIN 200 IV (17:38)
--- NOTE | 2023-10-01 17:47 | HPS.HSE ---
Family Physician
-
Family Physician: NO INTERVIEW UNKNOWN
Chief Complaint
-
Unresponsiveness
History of Present Illness
78-year-old man with complex PMH and with multiple active medical problems presents with unresponsiveness (first noted at 10 AM per EMS staff, he comes from hursing home). When he came in, his pulse was in the 70s with a systolic BP in the 60s-70s.
EMS was unable to obtain a pulse ox. He was given epinephrine x 3, with ongoing hypotension. He remained unresponsive. He was placed on antibiotics, pressors, and has remained unresponsive. No reaction to my exam. He has a port in his chest.
No legs (BKA left AKA right). Blood cultures drawn.
Medical History
Past Medical History
Past Medical History: Reports Other
Additional Past Medical History:
CAD,
Cancer (Bladder),
GERD,
essential HTN,
IDDM,
past [place],
Valvular disease
(BPH)
ED Past Surgical History: Cardiac, Orthopedic (Amputation Left AKA, Right BKA,) and Urological (TURP)
Acid reflux
End stage chronic kidney disease
Hyperlipidemia, unspecified hyperlipidemia type
Chronic combined systolic (congestive) and diastolic (congestive) heart failure
MAJOR DEPRESS DIS, MILD
Atherosclerotic heart disease of [place] coronary artery
Essential hypertension
Dependence on renal dialysis
Acquired absence of left leg above knee
abnormalities of gait and mobility from not having legs
Past Surgical History: Reports Other
Additional Past Surgical History:
leg amputations
Placement of ports
Social History
Unable to obtain full social history at this time due to: Acuity
Family History
Family History: Not pertinent
Allergies / Home Medications
Allergies reflects when Allergies were last updated in [employer].
Home Medications with original date entered in [employer]
Allergy/Medication List:
Allergies
Allergy/AdvReac Type Severity Reaction Status Date / Time
No Known Allergies Allergy Verified 10/01/23 14:23
Home Medications
atorvastatin 80 mg tablet 80 mg PO HS High cholesterol 08/11/14
escitalopram oxalate 5 mg tablet 5 mg PO HS Mental Health/Anxiety 12/18/14
aspirin 81 mg chewable tablet 81 mg PO DAILY Blood clot prevention/tx 07/25/22
pantoprazole 40 mg tablet,delayed release 40 mg PO BID Gastrointestinal issue 07/25/22
docusate sodium 100 mg capsule 200 mg PO HS Constipation 02/28/23
sevelamer HCl 800 mg tablet 1,600 mg PO AC Kidney Disease 02/28/23
bisacodyl 10 mg rectal suppository (Dulcolax (bisacodyl)) 10 mg NC DAILYPRN PRN constipation 03/27/23
midodrine 10 mg tablet 10 mg PO TID HOLD SBP > 140 04/13/23
acetaminophen 325 mg tablet (Tylenol) 650 mg PO Q6H PRN mild pain 05/24/23
potassium, sodium phosphates 280 mg-160 mg-250 mg oral powder packet (Phos-NaK) 1 packet PO TID Kidney Disease 05/24/23
metoprolol succinate 25 mg tablet,extended release 24 hr 25 mg PO BID 30 days #60 tabs 07/23/23
mirtazapine 7.5 mg tablet 7.5 mg PO HS 30 days #30 tabs 07/23/23
cholecalciferol (vitamin D3) 25 mcg (1,000 unit) tablet (Vitamin D3) 50 mcg PO DAILY 09/21/23
collagenase clostridium histo. 250 unit/gram topical ointment (Santyl) 1 applic topical DAILY PRN WOUND CARE 09/21/23
collagenase clostridium histo. 250 unit/gram topical ointment (Santyl) 1 applic topical QPM 09/21/23
multivitamin 1 tab PO DAILY 09/21/23
oxycodone 5 mg tablet 5 mg PO Q4HPRN PRN moderate pain #5 tabs 09/28/23
Review of Systems
-
Unable to obtain full review of systems at this time due to: Acuity
Physical Exam
Vital Signs
Vital Signs
Temp Pulse Resp BP Pulse Ox
98.3 F 75 11 146/21 100
10/01/23 14:26 10/01/23 17:35 10/01/23 17:35 10/01/23 17:35 10/01/23 17:40
Physical Exam
General: Appears Chronically Ill
HEENT: Nose Appears Normal and Ears Appear Normal
Respiratory: Decreased Breath Sounds
Cardiac: S1/S2, Irregular Rhythm and Murmur
GI: Soft, Non Tender and Non Distended
Musculoskeletal: No Clubbing, No Cyanosis and No Edema (No LE)
Skin: Warm and Dry
Neuro: No Awake, Alert, Oriented or AO x 3
Laboratory Results
-
10/01/23 15:22
10/01/23 15:22
Laboratory Results
PT 16.7 Sec (11.4-14.6) H 10/01/23 15:22
INR 1.37 10/01/23 15:22
Lactic Acid 2.4 mmol/L (0.7-2.0) H 10/01/23 16:21
Total Bilirubin 0.5 mg/dl (0.2-1.3) 10/01/23 15:22
AST 43 U/L (17-59) 10/01/23 15:22
ALT < 10 U/L (0-50) 10/01/23 15:22
Alkaline Phosphatase 156 U/L (38-126) H 10/01/23 15:22
Data Reviewed
-
Lab Data: Labs Reviewed by me
Impression/Plan
-
IMPRESSION:
78 man, unresponsive, hypotensive, WBC of 12.6, requiring pressors. Full code. Medically complex.
PLAN:
1. Unresponsiveness, with probable sepsis. WBC 12.6, Lactic acid pending
Broad spectrum abx
Some fluids (less than sepsis protocol given ESRD and current pulmonary edema)
SBPs now in the 140s with pressors
Wean pressors down as tolerated
Echo to check for vegetations
2. ESRD with K of 5.7, Aphos of 156, BUN/Creat 49/3.4 (near his baseline)
Renal consult for HD orders
3. Abnormal ECG
Cycle troponins
Monitor on telemetry
4. Abnormal CXR with pulm edema, pleural effusion, and LLL consolidation
Broad spectrum abx
Fluid removal as needed with HD
5. VBG 7.18
Supplemental oxygen as needed
Code: Full (documented in [facility] paperwork)
SQheparin for DVTp
[2023-10-01 19:21] LABS: Lactic Acid 1.9 mmol/L (0.7-2.0)
--- NOTE | 2023-10-01 19:30 | PTCARENOTE ---
pt adm to ICU from ED, pt unresponsive, no movements, Rectal temp 99.1, SR HR 70s. pt diaphoretic. Sat 100% on 2LNC. RR as low at 6 bpm, shallow. RA IV x 2 patent- levo gtt infusing per work list. RCW HD cath present. LUE with new HD fistula
inserted last week, RUE with old non working HD fistula. st2 sacral wound with foul odor, surrounding skin red, sacral foam applied. CHG clothes. family arriving to bedside.
[2023-10-01 21:44] LABS: B.E. -6.4 mmol/L; HCO3 21.9 mmol/L (21-28); O2 Saturation % 94.7 % (94-98); PCO2 56 mmHg (35-48); PO2 72 mmHg (83-108)
--- NOTE | 2023-10-01 22:25 | PTCARENOTE ---
no improvement on Bipap, pt intubated. see [employer] MANAGER [employer] PH[employer]ER AND ASSEMBLER update notes.
--- NOTE | 2023-10-01 22:38 | W.PN.ANESINT ---
Anesthesia Intubation Note
- Intubation Note
Intubation Note:
Diagnosis: acute respiratory failure
Blade: mac 4
Tube Size: 8.0
Depth: 23cm
Side Taped: right
Drugs Used: propofol 40mg
Grade View: 1
EtCO2 Present: yes
Atraumatic: yes
Attempts: 1
Insertion Start and Stop Time:
SaO2 Pre: 94
SaO2 Post: 96
Glidescope Used: yes
Other Airway Adjustments:
Pre-Oxygenated: yes
Portable Chest X-Ray: ordered
RSI: yes
Suctioned: no
Bilateral Breath Sounds Confirmed: yes
Vent Settings:
Settings per _x__Attending Physician
--- NOTE | 2023-10-01 23:24 | W.PN.SEPSIS ---
Sepsis
Vital Signs
Temp Pulse Resp BP Pulse Ox
99.2 F 70 14 149/55 100
10/01/23 23:21 10/01/23 20:45 10/01/23 20:45 10/01/23 20:45 10/01/23 22:42
Physical Exam
Physical Exam:
A focused exam was performed after fluid resuscitation.
Capillary Refill
Bilateral Upper Extremity:
Luciano Time: Less than 3 sec
Pulse Evaluation
Bilateral Radial:
Pulse Evaluation: Present
--- NOTE | 2023-10-01 23:26 | W.PN.UPDATE ---
Update Note
Progress Note Update
Upon arrival from the ER, patient not responsive to noxious stimuli. Respirations 5-6, slow shallow breathing, oxygen saturation 98%. Reviewed VBG CO2 58 and chest xray demonstrates some pulmonary edema (hx of CHF and ESRD on dialysis). Discussed
plan of care with family and answered all questions. Reviewed code status, patient wishes to be FULL CODE, children have previously discussed advance directive and code status previously with patient. Will trial bipap for acute hypercapnic
respiratory failure.
After period of time, patient was still not responsive, deep noxious stimuli patient lifted eye brows and slightly twitched hand but no spontaneous movement otherwise. ABG obtained with minimal improvements in pH now 7.20 and CO2 56, respirations
continue to be shallow and bradypnea, on 15 L on bipap now. LINE CONTROLLER was called for intubation for acute hypercapnic hypoxic respiratory failure, minimal light sedation was used for intubation. Patient remains on no sedation synchronous with the
ventilator. Chest xray ordered to confirm ETT placement. Family updated and all questions answered. Levophed gtt for hypotension MAP >65.
[2023-10-01 23:36] LABS: Glucose - Point of Care 125 mg/dl (70-99)
[2023-10-02] VITALS (82 sets, daily range): BP systolic 67–169; BP diastolic 22–117; BMI 18.5
[2023-10-02 00:03] LABS: B.E. -6.4 mmol/L; HCO3 17.7 mmol/L (21-28); O2 Saturation % 99.8 % (94-98); PCO2 30 mmHg (35-48); PO2 250 mmHg (83-108); pH 7.38 (7.35-7.45)
[2023-10-02] MEDS: ZOSYN 50 IV ×3 (00:26→16:03)
[2023-10-02] MEDS: HEPARIN 5000 UNITS SC ×3 (00:29→16:03)
[2023-10-02] MEDS: SUBLIMAZE 25 MCG IV ×4 (00:30→11:49)
[2023-10-02] MEDS: SODIUM BICARBONATE 50 MEQ IV (00:54)
[2023-10-02 01:50] LABS: Hematocrit 32.3 % (39.0-52.0); Hemoglobin 10.5 g/dL (13.0-18.0); Mean Corp Hgb Conc. 32.5 g/dL (33.0-37.0); Mean Corpuscular Hgb 33.3 pg (27.0-31.0); Mean Corpuscular Volume 102.5 fL (80.0-94.0); Mean Platelet Volume 9.6 fL (7.4-10.4); Platelet Count 221 10^3/uL (130-400); Red Blood Cell Count 3.15 10^6/uL (4.70-6.10); Red Cell Dist. Width 18.2 % (11.5-14.5); White Blood Cell Count 8.9 10^3/uL (4.8-10.8)
[2023-10-02 02:05] LABS: ALT (SGPT) < 10 U/L (0-50); AST (SGOT) 38 U/L (17-59); Albumin 3.5 g/dl (3.5-5.0); Alkaline Phosphatase 152 U/L (38-126); Blood Urea Nitrogen 55 mg/dl (9-20); Calcium 9.2 mg/dl (8.4-10.2); Carbon Dioxide 19 mmol/L (22-30); Chloride 105 mmol/L (98-107); Estimated Creatinine Clearance 14 ml/min; Glucose 130 mg/dl (70-99); Phosphorus 4.9 mg/dl (2.5-4.5); Potassium 5.8 mmol/L (3.5-5.1); Sodium 141 mmol/L (135-145); Total Bilirubin 0.7 mg/dl (0.2-1.3); Total Protein 6.7 g/dl (6.3-8.2); eGFR 15.72
[2023-10-02] MEDS: NOVOLIN R 10 UNITS IV (03:42)
[2023-10-02] MEDS: DEXTROSE 50% SYRINGE 25 GRAMS IV (03:42)
[2023-10-02] MEDS: PROTONIX IV 40 MG IV (07:35)
[2023-10-02] MEDS: NSS (PRESERVATIVE FREE) 10 ML IV (07:35)
[2023-10-02] MEDS: LEVOPHED 250 IV (07:55)
--- NOTE | 2023-10-02 08:00 | PTCARENOTE ---
Received pt @ change of shift. Intubated/restrained- see flow sheet. Opens eyes spont, does not follow commands. Agitated/combative w care, admin prn fent for CPOT-5- see MAR w good effect. SB-SR w 1st degree AVB. SpO2 100% on vent settings
AC12/450/.40/+5. Auscultated scat rhonchi/coarse breath sounds throughout. Hypoactive BS, inc BM. Anuric. L AKA and R BKA. Sacral dressing c/d/i. R FA #20 x 2 patent, dressing c/d/i/ R CW HD cath in place, dressing c/d/i. Old R arm fistula
not in use. L AV fistula (+) bruit/thrill). Levo gtt infusing- see flow sheet. Repositioned per protocol. HD RN to bedside this AM.
[2023-10-02 08:42] LABS: Glucose - Point of Care 103 mg/dl (70-99)
--- NOTE | 2023-10-02 08:57 | PHA.VAN.IN ---
Assessment
- Assessment
Renal Function: Patient has ESRD, on chronic Hemodialysis
Concomitant Antimicrobials: piperacillin/tazobactam
Plan
- Plan
Initial / Loading Dose: 1000mg - 09/30 17:38
Maintenance Regimen: dosing by level - give additional 500mg at end of HD today
Monitoring: random 10/02 0600 to ensure therapeutic
Pharmacokinetics Vancomycin I
- -
Patient Age: 78
Patient Sex: Male
Vancomycin Day #: 1
Indication: Pulmonary/Respiratory
Requesting Provider: Dr. Vivar
Pertinent Antimicrobial Allergies:
NKDA
Height / Weight:
Height 5 ft 6 in
Actual Weight 52 kg
IBW in k.8
Pertinent Past Medical History: ESRD on HD, L. BKA, R. AKA, BMI ~18.5 (adj 20.8 for amputations)
- Vital Signs / Lab Results
Temp Pulse Resp BP Pulse Ox
100 F 65 11 127/58 100
10/02/23 07:49 10/02/23 08:15 10/02/23 08:15 10/02/23 08:15 10/02/23 08:27
Lab Results - Hematology
10/01/23 10/02/23
15:22 01:38
WBC 12.6 H 8.9
Lab Results - Chemistry
10/01/23 10/02/23 10/02/23
15:22 00:26 01:38
BUN 49 H Cancelled 55 H
Creatinine 3.4 H Cancelled
Estimated Creat Clear Cancelled
Albumin 3.5
10/02/23 10/02/23 10/02/23
01:38 01:38 01:38
BUN Cancelled
Creatinine 3.8 H Cancelled
Estimated Creat Clear 14 Cancelled
Albumin 3.5
10/01/23 10/01/23 10/01/23
15:22 16:21 18:45
Lactic Acid Cancelled 2.4 H 1.9
10/01/23 10/01/23 10/02/23
19:36 23:36 03:36
Lactic Acid Cancelled Cancelled Cancelled
10/02/23
07:36
Lactic Acid Cancelled
Microbiology Results
10/01/23 15:22 Blood Culture - Preliminary
Blood/Venous Positive culture in progress
Gram Stain - Preliminary
--- NOTE | 2023-10-02 09:01 | CON.INTV ---
Consultation
Consultation Request
Date/Time Consultation Requested: 10/01/2023 - 1950
Date/Time Consultation Performed: 10/02/2023853
Requesting Provider: DEEPTHI Boone
Performing Provider: Dr. Talavera
Reason for Consultation: AMS
Medical History
-
Chief Complaint: Unresponsive
History of Present Illness:
78-year-old male with a past medical history of PAD s/p bilateral lower extremity amputations, hypertension, BPH, history of CVA, former tobacco use disorder and ESRD on HD who presents with unresponsiveness from [facility] [place]. Per the
staff he was normal at 10 AM and EMS arrived giving 3 pushes of epinephrine for blood pressure in the 70s. In triage he was hypotensive to 68/47, he was saturating 95% on a nonrebreather at 15 L/min, he was afebrile to 98.3 �F and pulse rate was
75. Labs showed leukocytosis of 12.6, anemia to 10.8, hypercapnia with pCO2 58, pH 7.18, and blood cultures were collected. CXR showed left lower lobe suspected atelectasis with stable small bilateral pleural effusions. Because of his altered
mental status with hypercapnia he was intubated and then transferred to the ICU for further care. Critical care services now consulted for additional management/recommendations.
Patient was seen and evaluated this morning. Patient's son and [id number] were at bedside � all questions were answered. Pt is on levophed at 4mcg/min. His eyes are open but he is legally blind, and he occasionally follows commands. He is
confused at baseline, per family. Minimal ETT secretions that are thin and love. On HD this AM. Current vitals show: BP 120/54, heart rate 91, saturating 100% on 450/12/40%/5.
PMHx: Legally blind.� End-stage renal disease on hemodialysis.� Diabetes.� PAD-left AKA, right BKA.� BPH.� Hypertension.� Hyperlipidemia.� Melanoma.� CVA.� Depression.� Former smoker.
PSHx: Vasectomy; TURP; L-AKA, R-BKA, right foot partial amputation, right femoral artery stent, left upper extremity AV graft placement with 7 mm x 4 mm Bastian Propaten graft (09/28/2023)
Past Medical History
Past Medical History: Other (Above as per HPI)
Past Surgical History: Other (Above as per HPI)
Social History
Tobacco: Former Smoker ([id number] history, quit over 20 years ago)
Alcohol: None
Drug: None
Personal: Single
Living: Snf
Family History
Family History: Reviewed & Not Pertinent
Allergies / Home Medications
Allergies
Allergy/AdvReac Type Severity Reaction Status Date / Time
No Known Allergies Allergy Verified 10/01/23 14:23
Home Medications
�Medication �Instructions �Recorded �Confirmed �Last Taken �Type
atorvastatin 80 mg tablet 80 mg PO HS High cholesterol 08/11/14 10/01/23 07/24/22 History
escitalopram oxalate 5 mg tablet 5 mg PO HS Mental Health/Anxiety 12/18/14 10/01/23 07/24/22 History
aspirin 81 mg chewable tablet 81 mg PO DAILY Blood clot 07/25/22 10/01/23 07/24/22 History
prevention/tx
pantoprazole 40 mg tablet,delayed 40 mg PO BID Gastrointestinal issue 07/25/22 10/01/23 07/24/22 History
release
docusate sodium 100 mg capsule 200 mg PO HS Constipation 02/28/23 10/01/23 Unknown History
sevelamer HCl 800 mg tablet 1,600 mg PO AC Kidney Disease 02/28/23 10/01/23 Unknown History
bisacodyl 10 mg rectal suppository 10 mg NV DAILYPRN PRN constipation 03/27/23 10/01/23 Unknown History
(Dulcolax (bisacodyl))
midodrine 10 mg tablet 10 mg PO TID HOLD SBP > 140 04/13/23 10/01/23 Unknown History
acetaminophen 325 mg tablet 650 mg PO Q6H PRN mild pain 05/24/23 10/01/23 Unknown History
(Tylenol)
potassium, sodium phosphates 280 1 packet PO TID Kidney Disease 05/24/23 10/01/23 Unknown History
mg-160 mg-250 mg oral powder
packet (Phos-NaK)
metoprolol succinate 25 mg 25 mg PO BID 30 days #60 tabs 07/23/23 10/01/23 Unknown Rx
tablet,extended release 24 hr
mirtazapine 7.5 mg tablet 7.5 mg PO HS 30 days #30 tabs 07/23/23 10/01/23 Unknown Rx
cholecalciferol (vitamin D3) 25 50 mcg PO DAILY 09/21/23 10/01/23 Unknown History
mcg (1,000 unit) tablet (Vitamin
D3)
collagenase clostridium histo. 250 1 applic topical DAILY PRN WOUND 09/21/23 10/01/23 Unknown History
unit/gram topical ointment (Santyl) CARE
collagenase clostridium histo. 250 1 applic topical QPM 09/21/23 10/01/23 Unknown History
unit/gram topical ointment (Santyl)
multivitamin 1 tab PO DAILY 09/21/23 10/01/23 Unknown History
oxycodone 5 mg tablet 5 mg PO Q4HPRN PRN moderate pain 09/28/23 10/01/23 Unknown Rx
#5 tabs
Review of Systems
-
Unable to Obtain full review of systems at this time due to: Patient Intubation
Vitals / Labs / Diagnostic Testing
Vital Signs
Temp Pulse Resp BP Pulse Ox
100 F 65 11 127/58 100
10/02/23 07:49 10/02/23 08:15 10/02/23 08:15 10/02/23 08:15 10/02/23 08:27
Lab Data
10/02/23 01:38
10/02/23 01:38
Laboratory Results
10/01/23 10/01/23 10/01/23
15:22 21:32 23:49
PT 16.7 H
INR 1.37
APTT
pH 7.20 L 7.38
pCO2 56 H 30 L
pO2 72 L 250 H
HCO3 21.9 17.7 L
O2 Delivery Level
10/02/23 10/02/23
08:00 09:05
PT 18.8 H
INR 1.60
APTT 43.1 H
pH Cancelled
pCO2 Cancelled
pO2 Cancelled
HCO3 Cancelled
O2 Delivery Level Cancelled
Microbiology
10/01/23 15:22 Blood/Venous Blood Culture - Preliminary
Positive culture in progress
10/01/23 15:22 Blood/Venous Gram Stain - Preliminary
Diagnostic Testing:
Physical Exam
-
HEENT: Normocephalic, Anicteric and Other (ETT in place)
Cardiovascular: S1/S2 and Peripheral Edema (Negative)
Respiratory: Wheeze (Negative), Rales (Bibasilar), Rhonchi (Negative) and Other (Mechanical breath sounds heard bilaterally)
GI: Soft, Non Distended and Non Tender
Neurology: Awake and Alert
Skin: Warm and Dry
General: Comfortable, Chills (Negative) and Other (Right-BKA, left-AKA)
Assessment
-
Assessment: 78-year-old male with a past medical history of PAD s/p bilateral lower extremity amputations, hypertension, BPH, history of CVA, former tobacco use disorder and ESRD on HD who presents with unresponsiveness from [facility]
home. Per the staff he was normal at 10 AM and EMS arrived giving 3 pushes of epinephrine for blood pressure in the 70s. In triage he was hypotensive to 68/47, he was saturating 95% on a nonrebreather at 15 L/min, he was afebrile to 98.3 �F and
pulse rate was 75. Labs showed leukocytosis of 12.6, anemia to 10.8, hypercapnia with pCO2 58, pH 7.18, and blood cultures were collected. CXR showed left lower lobe suspected atelectasis with stable small bilateral pleural effusions. Because of
his altered mental status with hypercapnia he was intubated and then transferred to the ICU for further care. Critical care services now consulted for additional management/recommendations.
Conditions present prior to admission:
Legally blind.�
End-stage renal disease on hemodialysis.�
Diabetes.�
PAD-left AKA, right BKA.�
BPH.�
Hypertension.�
Hyperlipidemia.�
Melanoma.�
CVA.�
Depression.�
Former smoker.
Impression:
#Acute respiratory failure with hypoxia and hypercapnia - unclear if there is a preceding infection causing his acute hypercapnia; head CT is without evidence of acute intracranial hemorrhage or transcortical infarct
#Ventilator dependent respiratory failure
#Leukocytosis with positive blood culture (drawn 10/01/2023 with GPC in chains)
#Shock - initially was likely due to sepsis but now may be due to sedation - his CXR is relatively unchanged from prior CXR in June 2023, so unlikely there is a PNA causing his current Sx; source currently unknown
#ESRD on HD
#PAD s/p R-BKA, L-AKA
#DM type II (A1C: 5.8)
Plan:
- Continue mechanical ventilation, goal peak pressure <30-35, and titrate FiO2 and PEEP to maintain SpO2 >90-94%
- Suctioning if needed
- Plan for SAT with SBT in the morning on pressure support 09/02
- Keep NPO
- Insert DHT and restart home PO meds, however hold BB given hypotension.
- Continue broad spectrum Abx and follow up infectious workup including blood and sputum Cx
- If possible, check UA with UCx as well
- Trend WBC and fever curve
- Continue vasopressors and wean as tolerated
- Maintain MAP>65
- Replete electrolytes with K>4, Mg>2
- Continue HD as per nephrology
- Maintain euglycemia with goal BG 140-180
- prn nebulized bronchodilators
- Incentive spirometer once extubated
- Aspiration precautions
- If patient does end up getting extubated then he may need to be discharged home on BiPAP, depending on the stability of his hypercapnia off of noninvasive ventilation, and his risk of aspiration with positive airway pressure
- DVT ppx
Critical care statement: A total of 40 minutes of critical care time was provided for this patient today. This includes management of unstable vital signs, evaluation of the patient at bedside, reviewing the patient's pertinent medical records
including radiographs, microbiology, laboratory evaluations, and discussion with primary team, consultants, pharmacy, nutrition, physical therapy, case management, charge nurse, critical care nursing, and respiratory therapy.
Data:
CXR 10-01-2023:
1. Mild cardiomegaly with suggestion of mild interstitial and alveolar cardiogenic pulmonary edema.
2. Small bilateral pleural effusions.
3. Moderate left lower lobe airspace consolidation which has been present since June 2023 (either chronic pneumonia or a combination of atelectasis and scarring).
4. Right IJ hemodialysis catheter in place.
CT Head 10-01-2023:
1. No CT evidence for acute intracranial hemorrhage or transcortical infarct.
2. Moderate diffuse cerebral and cerebellar volume loss consistent with a chronic neurodegenerative disease.
3. Mild white matter leukoaraiosis in both cerebral hemispheres.
4. Minimal acute left sphenoid sinusitis.
--- NOTE | 2023-10-02 09:16 | W.CON.NEPH ---
Consultation
-
Date/Time Consultation Requested: 10/02/23899
Date/Time Consultation Performed: 10/02/23899
Requesting Provider: Danica Arredondo
Performing Provider: Eve Gallardo
Reason for Consultation: ESRD
Medical History
-
Chief Complaint: AMS
History of Present Illness:
78yo M with PMHx of ESRD on HD MEF at [facility], had clogged R AVF last admit early June and now with R IJ tunneled HD cath, DM with out meds, HFrEF, PAD, s/p L AKA, R BKA with phantom pains, chronic hypotension on midodrine, BPH, Hx of HTN on
BB , hyperphosphatemia on renvela and also on neurta phos?, HLD on statin who was sent from [facility] with unresponsiveness, first noted approximately 10 AM 09/30 as per EMS staff. Upon arrival, ER systolic blood pressure in the 60s to 70s. unable to
obtain a pulse ox by EMS. He received epinephrine x 3 without resolution of his hypotension. He remains unresponsive. He failed BIPAP overnight and needed to be intubated last night. He is on low dose pressors for hypotension. Only requiring for
minimal sedation for agitation. NO fever noted. He received 400cc of IVF prior to ER arrival.
Past Medical History
end-stage renal disease on hemodialysis Monday, Monday, Monday
CAD status post stent
HFrEF
moderate mitral regurgitation
mild to moderate tricuspid regurgitation
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
chronic hypotension on midodrine
bladder cancer
GERD
hypercholesteremia
diabetes
diabetic neuropathy
bladder cancer status post TURBT
BPH
anemia of chronic disease
legal blindness
�anxiety/depression
Nonfunctioning right UE AVG
Past Surgical History: Other (1. Vasectomy. 2. TURP. 3. Femoral artery stenting, Rt UE AVF )
Social History
Tobacco: Former Smoker
Alcohol: None
Drug: None
Living: Prison
Family History
no CKD
Family History: Not Pertinent
Allergies / Home Medications
Allergy/AdvReac Type Severity Reaction Status Date / Time
No Known Allergies Allergy Verified 10/01/23 14:23
�Medication �Instructions �Recorded �Confirmed �Type
atorvastatin 80 mg tablet 80 mg PO HS High cholesterol 08/11/14 10/01/23 History
escitalopram oxalate 5 mg tablet 5 mg PO HS Mental Health/Anxiety 12/18/14 10/01/23 History
aspirin 81 mg chewable tablet 81 mg PO DAILY Blood clot 07/25/22 10/01/23 History
prevention/tx
pantoprazole 40 mg tablet,delayed 40 mg PO BID Gastrointestinal issue 07/25/22 10/01/23 History
release
docusate sodium 100 mg capsule 200 mg PO HS Constipation 02/28/23 10/01/23 History
sevelamer HCl 800 mg tablet 1,600 mg PO AC Kidney Disease 02/28/23 10/01/23 History
bisacodyl 10 mg rectal suppository 10 mg NE DAILYPRN PRN constipation 03/27/23 10/01/23 History
(Dulcolax (bisacodyl))
midodrine 10 mg tablet 10 mg PO TID HOLD SBP > 140 04/13/23 10/01/23 History
acetaminophen 325 mg tablet 650 mg PO Q6H PRN mild pain 05/24/23 10/01/23 History
(Tylenol)
potassium, sodium phosphates 280 1 packet PO TID Kidney Disease 05/24/23 10/01/23 History
mg-160 mg-250 mg oral powder
packet (Phos-NaK)
metoprolol succinate 25 mg 25 mg PO BID 30 days #60 tabs 07/23/23 10/01/23 Rx
tablet,extended release 24 hr
mirtazapine 7.5 mg tablet 7.5 mg PO HS 30 days #30 tabs 07/23/23 10/01/23 Rx
cholecalciferol (vitamin D3) 25 50 mcg PO DAILY 09/21/23 10/01/23 History
mcg (1,000 unit) tablet (Vitamin
D3)
collagenase clostridium histo. 250 1 applic topical DAILY PRN WOUND 09/21/23 10/01/23 History
unit/gram topical ointment (Santyl) CARE
collagenase clostridium histo. 250 1 applic topical QPM 09/21/23 10/01/23 History
unit/gram topical ointment (Santyl)
multivitamin 1 tab PO DAILY 09/21/23 10/01/23 History
oxycodone 5 mg tablet 5 mg PO Q4HPRN PRN moderate pain 09/28/23 10/01/23 Rx
#5 tabs
Review of Systems
-
unable to obtain since pt is intubated and unresponsive
Physical Exam
Vital Signs
Vital Signs
Temp Pulse Resp BP Pulse Ox
100 F 65 11 127/58 100
10/02/23 07:49 10/02/23 08:15 10/02/23 08:15 10/02/23 08:15 10/02/23 08:27
Lab Results
WBC 8.9 10^3/uL (4.8-10.8) 10/02/23 01:38
RBC 3.15 10^6/uL (4.70-6.10) L 10/02/23 01:38
Hgb 10.5 g/dL (13.0-18.0) L 10/02/23 01:38
Hct 32.3 % (39.0-52.0) L 10/02/23 01:38
Plt Count 221 10^3/uL (130-400) D 10/02/23 01:38
Sodium 141 mmol/L (135-145) 10/02/23 01:38
Sodium Cancelled 10/02/23 01:38
Potassium 5.8 mmol/L (3.5-5.1) H 10/02/23 01:38
Potassium Cancelled 10/02/23 01:38
Chloride 105 mmol/L (98-107) 10/02/23 01:38
Chloride Cancelled 10/02/23 01:38
Carbon Dioxide 19 mmol/L (22-30) L 10/02/23 01:38
Carbon Dioxide Cancelled 10/02/23 01:38
BUN 55 mg/dl (9-20) H 10/02/23 01:38
BUN Cancelled 10/02/23 01:38
Creatinine 3.8 mg/dL (0.7-1.3) H 10/02/23 01:38
Creatinine Cancelled 10/02/23 01:38
eGFR 15.72 10/02/23 01:38
eGFR Cancelled 10/02/23 01:38
Glucose 130 mg/dl (70-99) H 10/02/23 01:38
Glucose Cancelled 10/02/23 01:38
Calcium 9.2 mg/dl (8.4-10.2) 10/02/23 01:38
Calcium Cancelled 10/02/23 01:38
Phosphorus 4.9 mg/dl (2.5-4.5) H 10/02/23 01:38
Albumin 3.5 g/dl (3.5-5.0) 10/02/23 01:38
CXR:post intubation
IMPRESSION:
Stable small bilateral pleural effusions and left lower lobe probable atelectasis.
CT head:
IMPRESSION:
1. No CT evidence for acute intracranial hemorrhage or transcortical infarct.
2. Moderate diffuse cerebral and cerebellar volume loss consistent with a chronic neurodegenerative disease.
3. Mild white matter leukoaraiosis in both cerebral hemispheres.
4. Minimal acute left sphenoid sinusitis.
Physical Exam
General: No Distress and Nontoxic
HEENT: Other (no appreciable neck veins)
Respiratory: Clear, Nonlabored Respirations and Other (decreased BS)
Cardiac: S1/S2 and Regular Rate/Rhythm
Abdomen: Soft and Nondistended
Musculoskeletal: Other (bilat leg amputees)
Skin: No Rash
Neuro: Other (unable to assess sedated)
Psych: Other (unable to assess -sedated)
Vascular Access: CVC (right chest wall )
Assessment/Plan
-
IMP:
AMS-unresponsive
Acute hypoxic respiratory failure -VDRF
GPC in chains bacteremia
septic shock
Right IJ HD catheter
HFrEF 25-30%, DD stage2
ESRD on HD-MWF RUE AVG [facility]
mild hyperkalemia
Chr hypotension-midodrine dependent
HLD
History CAD with AR
Ex-smoker
DM 2-diet controlled, DM nephropathy
PAD right BKA and left AKA
GERD
Chronic anemia, multifactorial
Depression
BPH
Legally blind
History bladder cancer
Hyperphosphatemia
clotted right AVG s/p declot-non functioning
Chronic mild pulmonary edema with chronic loculated b/l pleural effusions and underlying parenchymal disease
Plan:
A/w AMS-unresponsive at [facility], now intubated
concern of sepsis with +ve bld cx-GPC in chains
cont abx per primary, echo pending
he has CVC HD catheter which could be source too
may need line holiday
his vol status seem euvolemic clinically, CXR post intubation is better
he is below his EDW , minimal UF with HD today
maintain pressors to keep MAP>60
resume midodrine when enteral route establishes
Full code noted, reportedly family is open for discussion if no improvement
dose meds renally
d/w nursing
CC time spent 40min
[2023-10-02 09:27] LABS: Venous Blood Gas B.E. 0.9 mmol/L (-4 to +4); Venous Blood Gas HCO3 26.6 mmol/L (22-27); Venous Blood Gas O2 Sat % 99.6 %; Venous Blood Gas pCO2 46 mmHg (35-48); Venous Blood Gas pH 7.37 (7.32-7.43); Venous Blood Gas pO2 129 mmHg (30-50)
[2023-10-02 09:34] LABS: PT 18.8 Sec (11.4-14.6)
[2023-10-02 09:35] LABS: APTT 43.1 Sec (23.4-35.0)
--- NOTE | 2023-10-02 09:42 | W.PN.NEPH.HD ---
Assessment
-
pt seen during HD
cont to titrate pressors for hypotension, SBP in 90s
low k bath for hyperkalemia
CVC functions well
however likely need line holiday -consider ID consult
since below DW limited UF only
Progress Note - Hemodialysis
-
Date of Service: October 02, 2023
Duration: 30 minutes and 3 hours
Potassium Bath: 2
Calcium Bath: 2.5
Opti-Dialyzer: 160
Ultrafiltration: Other (0.5kg)
Blood Flow: 350
Dialysate Flow: 600
Heparin: yesx2
EPO: 2000
[2023-10-02] MEDS: HEPARIN 500 UNITS IV ×2 (09:44→10:45)
[2023-10-02] MEDS: RETACRIT 2000 UNITS IV (09:45)
[2023-10-02] MEDS: VANCOCIN HCL 500 MG 100 IV (10:47)
--- NOTE | 2023-10-02 10:59 | CM ---
CM following re: discharge planning.
Discussed in rounds, reviewed pt's chart, met with pt.
Pt is a 78 year old male, admitted with primary dx of Unresponsiveness, with probable sepsis. Per Rounds meeting, pt intubated yesterday, remains intubated, continue supportive care.
Pt is a retirement care resident at [facility], on Medicaid bed hold, w/c bound, on HD.
CM spoke to [facility] liaison and she confirmed that pt is a [facility]yst[facility] care resident and pt will be accepted back when medically stable.
D/C plan: return back to [facility] for a LTC when medically stable.
CM will follow with discharge plan updates as hospitalization progresses
[2023-10-02] MEDS: SUBLIMAZE 100 IV (12:21)
--- NOTE | 2023-10-02 12:30 | PTCARENOTE ---
S/P HD, pt.'s mentation improving; able to follow simple commands/nod head yes/no. Requiring freq prn fent bolus doses- see MAR for CPOT. Dr. Talavera made aware; VBG also reviewed by Dr. Talavera. Plan to keep pt. intubated on current settings,
AC12/450/.40/+5. D/T mx fent bolus doses, fent gtt initiated- see flow sheet. Pt. assisted w mobility in bed; repositioned per protocol. Safe environment maintained. Family @ bedside updated on plan of care.
[2023-10-02 12:45] LABS: Glucose - Point of Care 95 mg/dl (70-99)
[2023-10-02 14:04] LABS: Glycohemoglobin (HgbA1c) 5.8 % (4.0-5.6)
--- NOTE | 2023-10-02 15:52 | W.PN.HOSP.TC ---
Addendum entered and electronically signed by Will Uribe MD 10/02/23 22:17:
I saw and evaluated the patient. I reviewed the resident�s note and agree with findings and plan as documented in the resident�s note. Full 12 point ROS limited due to intubation, patient able to nod head. seen on bedside HD, denies pain sob cp
Exam: Vitals reviewed in chart GEN-intubated but comfortable opens eyes heart RRR lungs scattered crackles abd NG tube in palce soft Ext- LE left BKA right AKA Right IJ tunneled cath present Plan:
# Ventilator Dependent Respiratory Failure
- intubated 09/30
- for extubation in am if tolerating weaning trial
- d/w pulm/cc- appreciate input
# Unresponsive Episode-
- unclear etiology
- cont to monitor responsiveness post extubation/off sedation
- head CT neg for bleed
- may need MRI
# HRrEF exacerbation-
- for gentle ultrafiltration on HD due to hypotension
- nephro and cards consult
- echo 10/01- global hypokinesis ef 20%
# PAD-
- s/p AKA and BKA
- cont wound care
# H/O IDDM-
- not on meds
- cont SSI for now
# ESRD-
- on HD MWF
- nephro consult
# Septic Shock
- blood cx pos for GPC- possible contaminant
- cont vanco and zosyn
- repeat blood cx
- cont levophed per protocol
- monitor closely
# Depression-
- cont Remeron and Lexapro
# HLD-
- cont atorvastatin
DVT proph-heparin
Dispo eventual DC back to [facility]
Time spent coordinating care, review of plan of care with resident, review of records, med rec, consults, notes, labs, rads, d/w nursing and CC med � 68 mins
Original Note:
Today's Communication/Plan
-
Continue antibiotics
Consider weaning of vent
Assessment / Plan
Assessment / Plan
Acute problems:
Acute hypoxic hypercapnic respiratory failure
Sepsis
Conditions [employer]LL[employer]:
ESRD
Hypercholesterolemia
GERD
Insulin-dependent diabetes mellitus
Visual impairment
History of CAD
#Acute hypoxic hypercapnic respiratory failure
Ventilator dependent
Head CT showed no acute intracranial process
Chest x-ray: Stable small bilateral pleural effusions and left lower lobe probable atelectasis.
-Continue vancomycin and Zosyn
-Acidosis improving, consider weaning of vent tomorrow
#Sepsis:
Secondary to pneumonia
Blood cultures positive for gram-positive cocci in chains
Leukocytosis now resolved
-Hypotensive on Levophed
-Continue Vanco and Zosyn
-Follow-up blood culture and morning
#Altered mental status
-Markedly improved after hemodialysis
# Pulmonary edema
-Dialysis
#ESRD
-On hemodialysis Mondays, Wednesdays and Fridays
-Hemodialysis this AM
#Hypercholesterolemia
-Statin
#GERD
-GI prophylaxis pantoprazole
#Insulin-dependent diabetes mellitus
Currently on no therapy
HbA1c 5.8
-Insulin sliding scale
# History of CAD
-Continue aspirin 81 mg
#Visual impairment
Anticipated Discharge: > 48 hours
Subjective/Interval History
-
Date of Service: October 02, 2023
Objective Data
-
Labs:
Laboratory Results
10/02/23 10/02/23 10/02/23
08:00 09:05 10:40
PT 18.8 H
INR 1.60
APTT 43.1 H
HCO3 Cancelled
Sodium Cancelled
Potassium Cancelled
Chloride Cancelled
Carbon Dioxide Cancelled
BUN Cancelled
Creatinine Cancelled
Glucose Cancelled
Calcium Cancelled
10/02/23
15:00
PT
INR
APTT
HCO3
Sodium Pending
Potassium Pending
Chloride Pending
Carbon Dioxide Pending
BUN Pending
Creatinine Pending
Glucose Pending
Calcium Pending
Vital Signs:
Vital Signs
Temp Pulse Resp BP Pulse Ox
98.9 F 94 8 116/84 100
10/02/23 15:18 10/02/23 11:30 10/02/23 11:30 10/02/23 11:15 10/02/23 15:46
I&O
10/01/23 10/02/23 10/03/23
06:59 06:59 06:59
Intake Total 185.0 / 192.5 130.0 / 130.0
Balance 185.0 / 192.5 130.0 / 130.0
Review of Systems
-
Unable to obtain full review of systems at this time due to: Patient Intubation
Physical Exam
-
General: Comfortable and Appears Chronically Ill
HEENT: Normocephalic
Respiratory: Rales (bilateral) and Other (ventilator)
Cardiac: Regular Rhythm and S1/S2; Negative Murmur
GI: Soft, Nontender and Nondistended
Musculoskeletal: No Clubbing, No Cyanosis and No Edema
Skin: Warm and Dry
Neuro: Awake, Alert and Oriented
Psych: Calm
--- NOTE | 2023-10-02 16:24 | PTCARENOTE ---
Attempted to turn levo gtt off; pt.'s SBP dropped into 60-70's w MAP in 50's. Levo gtt back on and titrated to keep MAP >65- see flow sheet.
[2023-10-02 16:44] LABS: Blood Urea Nitrogen 22 mg/dl (9-20); Calcium 7.5 mg/dl (8.4-10.2); Carbon Dioxide 25 mmol/L (22-30); Chloride 101 mmol/L (98-107); Estimated Creatinine Clearance 27 ml/min; Glucose 98 mg/dl (70-99); Sodium 135 mmol/L (135-145); eGFR 41.26
[2023-10-02] MEDS: LOW STRENGTH ASPIRIN 81 MG TUBE (17:38)
[2023-10-02] MEDS: LIPITOR 80 MG TUBE (17:38)
[2023-10-02] MEDS: ProAmatine 10 MG TUBE (17:38)
[2023-10-02] MEDS: SANTYL OINTMENT 1 APPLIC TOPICAL (17:38)
[2023-10-02 17:44] LABS: Glucose - Point of Care 99 mg/dl (70-99)
[2023-10-02 19:52] LABS: Hepatitis B Surface Antigen Negative (Negative)
--- NOTE | 2023-10-02 21:16 | PTCARENOTE ---
Pt is drowsy, wakes to voice, alert to name, follows simple commands. Intubated #8 ETT, 22 left lip, AC 12/450/40%/5+. Fentanyl gtt and levophed gtt. SR with PVC/PACs. + murmur. Dobbhoff in left nare 70cm. Tube feeds per RD. Stage2 on sacrum. [place]
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 Right chest wall HD cath. Q2hour turns with pillows. Plan of care ongoing.
[2023-10-02] MEDS: REMERON 7.5 MG TUBE (22:12)
[2023-10-02] MEDS: LEXAPRO 5 MG TUBE (22:12)
[2023-10-03] VITALS (36 sets, daily range): BP systolic 83–125; BP diastolic 41–99; BMI 18.6
[2023-10-03] MEDS: HEPARIN 5000 UNITS SC ×4 (00:24→23:48)
[2023-10-03] MEDS: ZOSYN 50 IV ×4 (00:24→23:48)
[2023-10-03] MEDS: DEXTROSE 50% SYRINGE 12.5 GRAMS IV ×2 (00:31→05:37)
[2023-10-03 00:40] LABS: Glucose - Point of Care 67 mg/dl (70-99)
[2023-10-03 01:15] LABS: Glucose - Point of Care 111 mg/dl (70-99)
--- NOTE | 2023-10-03 01:22 | PTCARENOTE ---
Pt assessment unchanged, Titrating Levophed down per protocol. PT BG 67, treated per protocol. repeat 111.
[2023-10-03 03:39] LABS: Glucose - Point of Care 82 mg/dl (70-99)
[2023-10-03 04:11] LABS: Hematocrit 30.9 % (39.0-52.0); Hemoglobin 9.9 g/dL (13.0-18.0); Mean Corpuscular Hgb 32.9 pg (27.0-31.0); Mean Corpuscular Volume 102.7 fL (80.0-94.0); Mean Platelet Volume 10.2 fL (7.4-10.4); Platelet Count 196 10^3/uL (130-400); Red Blood Cell Count 3.01 10^6/uL (4.70-6.10); Red Cell Dist. Width 17.8 % (11.5-14.5); White Blood Cell Count 8.7 10^3/uL (4.8-10.8)
[2023-10-03 04:26] LABS: Vancomycin Random 17.7 ug/ml
[2023-10-03 04:40] LABS: ALT (SGPT) < 10 U/L (0-50); AST (SGOT) 38 U/L (17-59); Alkaline Phosphatase 121 U/L (38-126); Blood Urea Nitrogen 28 mg/dl (9-20); Calcium 8.4 mg/dl (8.4-10.2); Carbon Dioxide 25 mmol/L (22-30); Chloride 98 mmol/L (98-107); Estimated Creatinine Clearance 21 ml/min; Glucose 109 mg/dl (70-99); Magnesium 1.8 mg/dl (1.6-2.3); Phosphorus 2.8 mg/dl (2.5-4.5); Potassium 4.5 mmol/L (3.5-5.1); Sodium 136 mmol/L (135-145); Total Bilirubin 0.8 mg/dl (0.2-1.3); Total Protein 5.9 g/dl (6.3-8.2); eGFR 30.28
[2023-10-03 05:41] LABS: Glucose - Point of Care 52 mg/dl (70-99)
--- NOTE | 2023-10-03 05:56 | PTCARENOTE ---
Pt with BG of 52, treated with D50%. Hypoglycemia protocol followed. ABG unattainable. Attempted to titrate Levophed off, Bp did not tolerate see MAR. Pt rremains on 1mcg/3.8ml of Levophed. Continued Fentanyl gtt. ETT moved to right side of mouth.
Morning CHG bath and wound care complete.
[2023-10-03 06:19] LABS: Glucose - Point of Care 86 mg/dl (70-99)
--- NOTE | 2023-10-03 07:01 | PTCARENOTE ---
Received patient from shift production associate. Patient is intubated, on fentanyl, somnolent but arousable, bilateral wrist restraints intact. #8 ETT, 22 at lip at right side, AC 12/450/5/40%. minimal secretions. Patient is sinus rhythm on monitor, heparin
for dvt prophylaxis. currently NPO Dobhoff inserted, awaiting tube feed recommendations, requiring Accu checks at 8am this morning but otherwise Q6. Patient is anuric. Skin as documented in focused shift assessment. Will review orders, bed in
lowest position, alarm on.
[2023-10-03] MEDS: NSS (PRESERVATIVE FREE) 10 ML IV (07:18)
[2023-10-03] MEDS: LOW STRENGTH ASPIRIN 81 MG TUBE (07:18)
[2023-10-03] MEDS: PROTONIX IV 40 MG IV (07:18)
[2023-10-03] MEDS: ProAmatine 10 MG TUBE ×3 (07:18→17:00)
--- NOTE | 2023-10-03 08:15 | W.PN.INTV ---
Today's Communication / Plan
Recommendations
Weaned off Levophed, Continue Midodrine.
Attempt repeat SBT with possible extubation if successful.
Started Metoprolol Tartrate
BC pending
Assessment
-
Assessment: 78-year-old male with a past medical history of PAD s/p bilateral lower extremity amputations, hypertension, BPH, history of CVA, former tobacco use disorder and ESRD on HD who presents with unresponsiveness from [facility]
home. Per the staff he was normal at 10 AM and EMS arrived giving 3 pushes of epinephrine for blood pressure in the 70s. In triage he was hypotensive to 68/47, he was saturating 95% on a nonrebreather at 15 L/min, he was afebrile to 98.3 �F and
pulse rate was 75. Labs showed leukocytosis of 12.6, anemia to 10.8, hypercapnia with pCO2 58, pH 7.18, and blood cultures were collected. CXR showed left lower lobe suspected atelectasis with stable small bilateral pleural effusions. Because of
his altered mental status with hypercapnia he was intubated and then transferred to the ICU for further care. Critical care services now consulted for additional management/recommendations.
Conditions present prior to admission:
Legally blind.�
End-stage renal disease on hemodialysis.�
Diabetes.�
PAD-left AKA, right BKA.�
BPH.�
Hypertension.�
Hyperlipidemia.�
Melanoma.�
CVA.�
Depression.�
Former smoker.
Impression:
#Acute respiratory failure with hypoxia and hypercapnia - unclear if there is a preceding infection causing his acute hypercapnia; head CT is without evidence of acute intracranial hemorrhage or transcortical infarct
#Ventilator dependent respiratory failure
#Leukocytosis with positive blood culture (drawn 10/01/2023 with GPC in chains)
#Shock - initially was likely due to sepsis but now may be due to sedation - his CXR is relatively unchanged from prior CXR in June 2023, so unlikely there is a PNA causing his current Sx; source currently unknown
#ESRD on HD
#PAD s/p R-BKA, L-AKA
#DM type II (A1C: 5.8)
Plan:
#Acute respiratory failure with hypoxia and hypercapnia/ Ventilator dependent
-SBT in AM, had periods of apnea
-Clinically: awake, follows commands, minimal secretions, no cough. RSBI <105, O2 saturation 100,
-Plan for repeat SBT later today on pressure support /5, if successful plan for extubation
-ABG difficulty, possible VBG pending from HD catheter
-Sedation: continue Fentanyl
-Continue PPI prophylaxis
- prn nebulized bronchodilators
-Incentive spirometer once extubated
- Aspiration precautions
- If patient does end up getting extubated then he may need to be discharged home on BiPAP, depending on the stability of his hypercapnia off of noninvasive ventilation, and his risk of aspiration with positive airway pressure
#HFrEF
-echo: Severe LV global hypokinesis. LVEF 20%.
-Hold Metoprolol Succinate
-Start Metoprolol tartrate 12.5mg BID
#Shock - initially was likely due to sepsis but now may be due to sedation
- Continue broad spectrum Abx (Zosyn and Vancomycin)
-Infectious workup- BC pending, Sputum cx showed moderate budding yeast with pseudohyphae, hold off on U/A and Ucx as patient is anuric
- Trend WBC and fever curve
- Levophed weaned off in AM, continue midodrine
- Maintain MAP>65
- Replete electrolytes with K>4, Mg>2
#Full Thickness Sacral Pressure Injury/?Stage 2
-Care as per wound care consult
-Possible debridement if wound continues to worsen
#ESRD
- Continue HD as per nephrology
-?possible CVC HD catheter source of infection, nephrology discussed with family about may needing line holiday
#DM type II (A1C: 5.8)
- Maintain euglycemia with goal BG 140-180
- Continue ISS
-Continue to monitor with tube feeding (was hypoglycemic in AM with 52, increased later to 74)
-Continue NG placement, continue home medications
DVT ppx: Heparin
Critical care statement: A total of 40 minutes of critical care time was provided for this patient today. This includes management of unstable vital signs, evaluation of the patient at bedside, reviewing the patient's pertinent medical records
including radiographs, microbiology, laboratory evaluations, and discussion with primary team, consultants, pharmacy, nutrition, physical therapy, case management, charge nurse, critical care nursing, and respiratory therapy.
Data:
CXR 10-03-2023
1.Overall, stable radiographic appearance comparing to examination
2.small to moderate left pleural effusion with lateral loculation. Small right pleural effusion.
3.parenchymal airspace opacity within the left mid to lower lung, stable, with main differential considerations of atelectasis and/or pneumonia.
4. Right-sided hemodialysis catheter with tip over the SVC, stable.
CXR 10-01-2023:
1. Mild cardiomegaly with suggestion of mild interstitial and alveolar cardiogenic pulmonary edema.
2. Small bilateral pleural effusions.
3. Moderate left lower lobe airspace consolidation which has been present since June 2023 (either chronic pneumonia or a combination of atelectasis and scarring).
4. Right IJ hemodialysis catheter in place.
CT Head 10-01-2023:
1. No CT evidence for acute intracranial hemorrhage or transcortical infarct.
2. Moderate diffuse cerebral and cerebellar volume loss consistent with a chronic neurodegenerative disease.
3. Mild white matter leukoaraiosis in both cerebral hemispheres.
4. Minimal acute left sphenoid sinusitis.
Subjective Dataa
Subjective Data
Date of Service:
Date of Service: October 03, 2023
Subjective:
He had no major significant overnight events. Had a SBT done early in morning around 7am with periods of apnea. Difficulty in obtain an ABG.
Review of Systems
General: Unobtainable - Sedation
Objective Data
Data Reviewed
Vital Signs / I&O / Oxygen:
Vital Signs
Temp Pulse Resp BP Pulse Ox
99.1 F 78 13 125/57 100
10/03/23 07:42 10/03/23 07:30 10/03/23 07:30 10/03/23 07:30 10/03/23 07:46
Intake and Output
10/02/23 10/03/23 10/04/23
06:59 06:59 06:59
Intake Total 185.0 / 192.5 359.2 / 375.4 32.5 / 32.5
Output Total 0 / 0
Balance 185.0 / 192.5 359.2 / 375.4 32.5 / 32.5
SaO2 [A/C] 100
SaO2 100
Nasal Cannula flow liters per 2
minute
Physical Exam
General: Comfortable
HEENT: Normocephalic and Anicteric
Cardiovascular: S1-S2
Respiratory: Crackles and Other (mechanical ventilation)
GI: Soft, Distended and Non Distended
Neurology: Awake
Skin: Warm
Labs/Micro/Reports
Lab Data
10/03/23 03:27
10/03/23 10:00
Laboratory Results
10/02/23 10/02/23
08:00 09:05
PT 18.8 H
INR 1.60
APTT 43.1 H
pH Cancelled
pCO2 Cancelled
pO2 Cancelled
HCO3 Cancelled
O2 Delivery Level Cancelled
Microbiology
10/01/23 15:22 Blood/Venous Blood Culture - Preliminary
No Growth in 24 hours- Final report to follow
10/01/23 22:53 Sputum Respiratory Culture - Final
10/01/23 22:53 Sputum Gram Stain - Final
10/01/23 15:22 Blood/Venous Blood Culture - Preliminary
Positive culture in progress
10/01/23 15:22 Blood/Venous Gram Stain - Preliminary
[2023-10-03 08:18] LABS: Glucose - Point of Care 77 mg/dl (70-99)
--- NOTE | 2023-10-03 08:48 | WOUNDNOTE ---
[facility] RN note: Patient admitted with sepsis. Patient intubated. He was admitted from [facility].
See H&P for complete history.
PMH: CHF, PAD, AKA, BKA, IDDM, ESRD on HD, sacral pressure injury.
Wound Location and type/assessment: Patient admitted with: full thickness sacral pressure injury DTI, dark red with purple ecchymosis. L medial buttocks with small purple area suspect will be a stage 2. R hand dermal skin tear.
Appetite: NG tube feeding.
Pressure redistribution devices in place: Centrella Max air bed.
Plan: Sacral dressing changed. Silicone border foam applied L buttocks. Patient turned with help from JUVE Griggs and Daniela Waterman.
Will confirm orders with hospitalist and discussed with JUVE Waterman.
Care plan to be updated and will follow as needed.
Note to case management of equipment requested for discharge: air mattress if not already at SNF.
--- NOTE | 2023-10-03 08:50 | WOUNDNOTE ---
[facility] RN note: Patient admitted with sepsis. Patient intubated. He was admitted from [facility].
See H&P for complete history.
PMH: CHF, PAD, AKA, BKA, IDDM, ESRD on HD, sacral pressure injury.
Wound Location and type/assessment: Patient admitted with: full thickness DTI (stage 3 or stage 4) sacral pressure injury, dark red with purple ecchymosis. L medial buttocks with small purple area suspect will be a stage 2. R hand dermal skin tear.
Appetite: NG tube feeding.
Pressure redistribution devices in place: Centrella Max air bed.
Plan: Sacral dressing changed. Silicone border foam applied L buttocks. Patient turned with help from JUVE Griggs and Daniela Waterman.
Will confirm orders with hospitalist and discussed with JUVE Waterman.
Care plan to be updated and will follow as needed.
Note to case management of equipment requested for discharge: air mattress if not already at SNF.
--- NOTE | 2023-10-03 08:55 | W.PN.HOSP.TC ---
Addendum entered and electronically signed by Will Uribe MD 10/03/23 22:06:
I saw and evaluated the patient. I reviewed the resident�s note and agree with findings and plan as documented in the resident�s note. Full 12 point ROS limited due to intubation, seem groggy. denies pain sob cp had episodes of apnea overnight.
Exam: Vitals reviewed in chart GEN-intubated but comfortable opens eyes heart RRR lungs scattered crackles abd NG tube in palce soft Ext- LE left BKA right AKA Right IJ tunneled cath present Plan:
# Ventilator Dependent Respiratory Failure
- intubated 10/01
- for extubation in am s/p SBT
- d/w ICU- appreciate input
# Septic Shock unclear source ? sacral wound
- blood cx pos for GPC and GNB
- cont vanco and zosyn await sens
- repeat blood cx
- weaned off levophed
- c/s ID
- monitor closely
# Unresponsive Episode-at [place]
- unclear etiology
- cont to monitor responsiveness post extubation/off sedation
- head CT neg for bleed
- may need MRI
# HRrEF exacerbation-
- for gentle ultrafiltration on HD due to hypotension
- nephro and cards input appreciated
- echo 10/01- global hypokinesis ef 20%
- cont metoprolol
- cont midodrine for support
# PAD-
- s/p AKA and BKA
- cont wound care
# Sacral Ulcer-
-POA
- cont wound care
# H/O IDDM-
- not on home meds
- cont SSI for now
# ESRD-
- on HD MWF
- for HD in am
- nephro input appreciated
# Depression-
- cont Remeron and Lexapro
# HLD-
- cont atorvastatin
DVT proph-heparin
Dispo eventual DC back to [facility]
Time spent coordinating care, review of plan of care with resident, review of records, med rec, consults, notes, labs, rads, d/w nursing and CC med � 59 mins
Original Note:
Today's Communication/Plan
-
IV Abx
SBT
Assessment / Plan
Assessment / Plan
Acute problems:
Acute hypoxic hypercapnic respiratory failure
Sepsis
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
ESRD
Hypercholesterolemia
GERD
Insulin-dependent diabetes mellitus
Visual impairment
History of CAD
#Acute hypoxic hypercapnic respiratory failure
Ventilator dependent, intubate 09/[address] showed no acute intracranial process
Chest x-ray: Stable small bilateral pleural effusions and left lower lobe probable atelectasis.
-Continue vancomycin and Zosyn
-Intermittent episodes of apnea. VBG during SBT, acidosis.
-Vent back to ASV mode
#Septic shock
Secondary to respiratory vs skin vs vascular lines
Blood cultures 09/30 positive for Strep and gram negative bacilli. F/U blood Cx 10/01 no growth
Leukocytosis now resolved
-Off Levophed
-Midodrine TID. Maintain MAP >60
-Continue Vanco and Zosyn
-Infectious disease consult
# HRrEF exacerbation-
- for gentle ultrafiltration on HD due to hypotension
- nephro and cards consult
- echo 10/01- global hypokinesis ef 20%
- Start Metoprolol Tartrate 12.5mg BID
#Altered mental status
Unresponsive episode
Intubated, Somnolent but rousable and nods in response to questions
- unclear etiology
- cont to monitor responsiveness post extubation/off sedation
- head CT neg for bleed
- may need MRI
-Markedly improved after hemodialysis on 10/01
Hypoglycemia
- ET tube for enteral nutrition started
- monitor
# Pulmonary edema
-Dialysis
#ESRD
-On hemodialysis Mondays, Wednesdays and Fridays
-Scheduled for tomorrow
#Sacral decubitus ulcer
- Wound care on board
#Hypercholesterolemia
-Statin
#GERD
-GI prophylaxis pantoprazole
#Insulin-dependent diabetes mellitus
Currently on no therapy
HbA1c 5.8
-Insulin sliding scale
# History of CAD
-Continue aspirin 81 mg
#Depression
Escitalopram and Mirtazapine
#HLD
#Visual impairment
Anticipated Discharge: > 48 hours
Subjective/Interval History
-
Date of Service: October 03, 2023
Apneic episodes
Hypoglycemic episodes overnight
Objective Data
-
Labs:
Laboratory Results
10/03/23 10/03/23 10/03/23
03:27 06:00 10:00
WBC 8.7
Hgb 9.9 L
Hct 30.9 L
Plt Count 196
HCO3 Pending
Sodium 136 Cancelled
Potassium 4.5 Cancelled
Chloride 98 Cancelled
Carbon Dioxide 25 Cancelled
BUN 28 H Cancelled
Creatinine 2.2 H Cancelled
Glucose 109 H Cancelled
Calcium 8.4 Cancelled
Total Bilirubin 0.8
AST 38
ALT < 10
Alkaline Phosphatase 121
Vital Signs:
Vital Signs
Temp Pulse Resp BP Pulse Ox
99.1 F 60 13 114/54 100
10/03/23 07:42 10/03/23 08:30 10/03/23 08:30 10/03/23 08:30 10/03/23 08:30
I&O
10/02/23 10/03/23 10/04/23
06:59 06:59 06:59
Intake Total 185.0 / 192.5 359.2 / 375.4 32.5 / 32.5
Output Total 0 / 0
Balance 185.0 / 192.5 359.2 / 375.4 32.5 / 32.5
Review of Systems
-
Unable to obtain full review of systems at this time due to: Patient Intubation
Physical Exam
-
General: Appears Chronically Ill
HEENT: Atraumatic and Oxygen (ventilator)
Respiratory: Other (Poor respiratory effort, reduced breath sounds bilaterally, left-sided rales)
Cardiac: Regular Rhythm and S1/S2; Negative Murmur
GI: Soft, Nontender and Nondistended
Musculoskeletal: No Clubbing, No Cyanosis, No Edema and Other (above nee amputation, below knee amputation)
Skin: Warm, Dry and Decubitus Ulcers (sacral)
Neuro: Awake and Other (somnolent)
Psych: Calm
--- NOTE | 2023-10-03 09:28 | PHA.VAN.FU ---
Vancomycin Assessment / Plan
- Assessment
Hemodialysis Schedule: MWF
Last Hemodialysis performed: 10/01
WBC's are: WNL
In the past 24 hrs, patient has been: Afebrile
Concomitant Antimicrobials: piperacillin/tazobactam
- Assessment - Therapeutic Drug Monitoring
Random Level: 17.7
- Dosing Plan
Dosing by Level: Hold off on dosing today (anticipate patient will maintain levels until HD tomorrow)
- Monitoring Plan
No level(s) ordered at this time: will plan to re-dose tomorrow based on today's level
- Follow Up
Pharmacy will continue to follow.
Vancomycin Follow UP
- -
Patient Age: 78
Patient Sex: Male
Vancomycin Day #: 2
Indication: Pulmonary/Respiratory
Requesting Provider: Dr. Vivar
Pertinent Antimicrobial Allergies:
NKDA
Height / Weight:
Height 5 ft 6 in
Actual Weight 52.3 kg
IBW in k.8
Pertinent Past Medical History: ESRD on HD, L. BKA, R. AKA, BMI ~18.5 (adj 20.8 for amputations)
- Vital Signs / Lab Results
Temp Pulse Resp BP Pulse Ox
99.1 F 60 13 114/54 100
10/03/23 07:42 10/03/23 08:30 10/03/23 08:30 10/03/23 08:30 10/03/23 08:30
Lab Results - Hematology
10/01/23 10/02/23 10/03/23
15:22 01:38 03:27
WBC 12.6 H 8.9 8.7
Lab Results - Chemistry
10/01/23 10/02/23 10/02/23
15:22 00:26 01:38
BUN 49 H Cancelled 55 H
Creatinine 3.4 H Cancelled
Estimated Creat Clear Cancelled
Albumin 3.5
10/02/23 10/02/23 10/02/23
01:38 01:38 01:38
BUN Cancelled
Creatinine 3.8 H Cancelled
Estimated Creat Clear 14 Cancelled
Albumin 3.5
10/02/23 10/02/23 10/03/23
10:40 16:01 03:27
BUN Cancelled 22 H 28 H
Creatinine Cancelled 1.7 H 2.2 H
Estimated Creat Clear Cancelled 27 21
Albumin 3.0 L
10/03/23
10:00
BUN Cancelled
Creatinine Cancelled
Estimated Creat Clear Cancelled
Albumin
10/01/23 10/01/23 10/01/23
15:22 16:21 18:45
Lactic Acid Cancelled 2.4 H 1.9
10/01/23 10/01/23 10/02/23
19:36 23:36 03:36
Lactic Acid Cancelled Cancelled Cancelled
10/02/23
07:36
Lactic Acid Cancelled
Microbiology Results
10/02/23 09:05 Blood Culture - Preliminary
Blood/Venous No Growth in 24 hours- Final report to follow
10/01/23 15:22 Blood Culture - Preliminary
Blood/Venous No Growth in 24 hours- Final report to follow
10/01/23 22:53 Respiratory Culture - Final
Sputum Gram Stain - Final
10/01/23 15:22 Blood Culture - Preliminary
Blood/Venous Positive culture in progress
Gram Stain - Preliminary
Therapeutic Drug Monitoring
Random Vancomycin 17.7 ug/ml 10/03/23 03:27
[2023-10-03 10:32] LABS: Glucose - Point of Care 74 mg/dl (70-99)
[2023-10-03 12:12] LABS: Venous Blood Gas B.E. -0.2 mmol/L (-4 to +4); Venous Blood Gas HCO3 27.6 mmol/L (22-27); Venous Blood Gas O2 Sat % 86.5 %; Venous Blood Gas pCO2 60 mmHg (35-48); Venous Blood Gas pH 7.27 (7.32-7.43); Venous Blood Gas pO2 58 mmHg (30-50)
--- NOTE | 2023-10-03 12:14 | W.PN.NEPH.PH ---
Today's Communication / Plan
-
HD tomorrow
Assessment/Plan
-
IMP:
AMS-unresponsive
Acute hypoxic respiratory failure -VDRF
GPC in chains bacteremia
septic shock
Right IJ HD catheter
HFrEF 25-30%, DD stage2
ESRD on HD-MWF RUE AVG [facility]
mild hyperkalemia
Chr hypotension-midodrine dependent
HLD
History CAD with OR
Ex-smoker
DM 2-diet controlled, DM nephropathy
PAD right BKA and left AKA
GERD
Chronic anemia, multifactorial
Depression
BPH
Legally blind
History bladder cancer
Hyperphosphatemia
clotted right AVG s/p declot-non functioning
Left UE AVG created on 09/27
Chronic mild pulmonary edema with chronic loculated b/l pleural effusions and underlying parenchymal disease
Plan:
A/w AMS-unresponsive at NH, intubated
concern of sepsis with +ve bld cx-strep and GN
cont abx per primary, echo EF 20%, mild to mod MR
he has CVC HD catheter which could be source too
await for ID input
his vol status seem euvolemic clinically
he is below his EDW ,HD tomorrow
maintain pressors to keep MAP>60
resume midodrine when enteral route establishes
Full code noted, d/w family aware of poor shelter prognosis but wish to cont full code as per pt wishes from previous discussions
dose meds renally
d/w nursing
CC time spent 31min
-
-
Date of Service: October 03, 2023
CC / HPI / ROS
-
Chief Complaint:
ESRD
History of Present Illness:
plan to extubate today, on weaning on vent
off pressors, BP soft
hb decreasing to 9.9
bld cx GN and strep, repeat neg 24hrs
no fever
Review of Systems:
intubated -unable to obtain history
Labs
-
Labs:
WBC 8.7 10^3/uL (4.8-10.8) 10/03/23 03:27
RBC 3.01 10^6/uL (4.70-6.10) L 10/03/23 03:27
Hgb 9.9 g/dL (13.0-18.0) L 10/03/23 03:27
Hct 30.9 % (39.0-52.0) L 10/03/23 03:27
Plt Count 196 10^3/uL (130-400) 10/03/23 03:27
Sodium Cancelled 10/03/23 10:00
Potassium Cancelled 10/03/23 10:00
Chloride Cancelled 10/03/23 10:00
Carbon Dioxide Cancelled 10/03/23 10:00
BUN Cancelled 10/03/23 10:00
Creatinine Cancelled 10/03/23 10:00
eGFR Cancelled 10/03/23 10:00
Glucose Cancelled 10/03/23 10:00
Calcium Cancelled 10/03/23 10:00
Phosphorus 2.8 mg/dl (2.5-4.5) 10/03/23 03:27
Albumin 3.0 g/dl (3.5-5.0) L 10/03/23 03:27
Physical Exam
-
Vital Signs:
Vital Signs
Temp Pulse Resp BP Pulse Ox
98.1 F 105 18 110/87 100
10/03/23 11:26 10/03/23 10:30 10/03/23 10:30 10/03/23 10:30 10/03/23 11:23
Cardiovascular:: Regular rate and rhythm
Lung Excursion:: Abnormal (decreased)
Abdomen:: Nontender and Soft
Gonzalez Catheter: No
Other Findings::
bilat leg amputees
[2023-10-03 12:19] LABS: Glucose - Point of Care 82 mg/dl (70-99)
--- NOTE | 2023-10-03 12:37 | PTCARENOTE ---
Patient was on wean, Cpap 5/5. Jr VBG, patient has been mostly somnolent throughout wean. Placed patient back on ASV mode. Will retry wean this afternoon if more awake. Patient to remain off sedation with break through pushes if needed.
--- NOTE | 2023-10-03 16:00 | PTCARENOTE ---
No change in patient's assessment. attempted antoher CPAP wean, patient's CO2 continued to climb and patient becomes more somnolent. Will attempt tomorrow. continuing to turn and reposition
[2023-10-03] MEDS: SANTYL OINTMENT TOPICAL (16:41)
[2023-10-03] MEDS: LIPITOR 80 MG TUBE (17:00)
[2023-10-03 17:35] LABS: Glucose - Point of Care 100 mg/dl (70-99)
[2023-10-03] MEDS: SUBLIMAZE 50 MCG IV ×2 (19:03→23:54)
[2023-10-03] MEDS: LOPRESSOR 12.5 MG TUBE (19:24)
[2023-10-03] MEDS: REMERON 7.5 MG TUBE (19:24)
[2023-10-03] MEDS: LEXAPRO 5 MG TUBE (19:24)
--- NOTE | 2023-10-03 19:49 | PTCARENOTE ---
pt received from previous rn- drowsy on vent- able to open eyes to name, follow commands. pupils equal and reactive. pt c/o pain and discomfort, restless, given prn fentanyl as ordered. full pm care, chg, oral care provided. right hand wound
dressing completed- noted bloody drainage. sacrum with stage 3 dressing intact. turned and repositioned. ett #8 22 at lip moved to center. see vent settings as charted. nsr on monitor. restraints in place for protective intervention. left nare
dobhuff with tf- pt tolerating. all safety precautions in place.
[2023-10-04] VITALS (58 sets, daily range): BP systolic 71–124; BP diastolic 31–106; PULSE 2–116; BMI 18.9
[2023-10-04 00:05] LABS: Glucose - Point of Care 102 mg/dl (70-99)
--- NOTE | 2023-10-04 00:07 | PTCARENOTE ---
assessment unchanged. turned and repositioned, oral care provided.
--- NOTE | 2023-10-04 04:01 | PTCARENOTE ---
assessment unchanged. marilee mario for cardiology rn to draw am labs. turned and repositioned, oral care provided.
[2023-10-04 05:27] LABS: Glucose - Point of Care 128 mg/dl (70-99)
[2023-10-04] MEDS: LOPRESSOR TUBE (06:53)
[2023-10-04] MEDS: ZOSYN 50 IV ×2 (07:11→15:15)
[2023-10-04] MEDS: PROTONIX IV 40 MG IV (07:11)
[2023-10-04] MEDS: NSS (PRESERVATIVE FREE) 10 ML IV (07:11)
[2023-10-04] MEDS: ProAmatine 10 MG TUBE ×3 (07:12→17:05)
[2023-10-04] MEDS: HEPARIN 5000 UNITS SC ×2 (07:12→15:17)
[2023-10-04] MEDS: LOW STRENGTH ASPIRIN 81 MG TUBE (07:13)
--- NOTE | 2023-10-04 07:30 | W.PN.HOSP.TC ---
Addendum entered and electronically signed by Will Uribe MD 10/04/23 21:29:
I saw and evaluated the patient. I reviewed the resident�s note and agree with findings and plan as documented in the resident�s note. Full 12 point ROS limited due to intubation. failed SBT x 2 due to apnea. Patient appears more alert today. Seen
with daughter present. Exam: Vitals reviewed in chart GEN-intubated but comfortable opens eyes heart RRR lungs scattered crackles abd NG tube in place soft Ext- LE left BKA right AKA, Right IJ tunneled cath present Plan:
# Ventilator Dependent Respiratory Failure
- intubated 10/01
- for extubation today
- failed SBT x 2
- d/w family re changing code status to DNR after extubation- NOT TO BE REINTUBATED
- d/w ICU- appreciate input
# Septic Shock unclear source
- blood cx pos for GPC and GNB - possible contaminant
- DC vanco and cont zosyn await sens
- repeat blood cx x 2 NGTD 10/01
- weaned off levophed
- c/s ID - appreciate input
- monitor closely
# Unresponsive Episode-[facility] [place] [facility]
- unclear etiology
- cont to monitor responsiveness post extubation/off sedation
- head CT neg for bleed
- may need MRI
# HRrEF exacerbation-
- for ultrafiltration on HD
- nephro and cards input appreciated
- echo 10/01- global hypokinesis ef 20%
- cont metoprolol
- cont midodrine for support
# PAD-
- s/p AKA and BKA
- cont wound care
# Sacral Ulcer stage 2 pressure
- left medial sacrum
- POA
- cont wound care
# H/O IDDM-
- not on home meds
- cont SSI for now
# ESRD-
- on HD MWF
- nephro input appreciated
# Depression-
- cont Remeron and Lexapro
# HLD-
- cont atorvastatin
DVT proph-heparin
[facility]po [facility]
Time spent coordinating care, review of plan of care with resident, review of records, med rec, consults, notes, labs, rads, d/w nursing family and ICU team� 65 mins
Original Note:
Today's Communication/Plan
-
Continue Abx
Extubated 12:30pm
Assessment / Plan
Assessment / Plan
Acute problems:
Acute hypoxic hypercapnic respiratory failure
Sepsis
Conditions [employer] RE[employer] SERVICER:
ESRD
Hypercholesterolemia
GERD
Insulin-dependent diabetes mellitus
Visual impairment
History of CAD
#Acute hypoxic hypercapnic respiratory failure
Ventilator dependent, intubated 09/[address] showed no acute intracranial process
Chest x-ray: Stable small bilateral pleural effusions and left lower lobe probable atelectasis.
- Extubated at 12:24pm, bipap
#Septic shock
Secondary to respiratory vs sacral decube vs vascular lines
Blood cultures 09/30 positive for Strep and gram negative bacilli. F/U blood Cx 10/01 no growth
Leukocytosis now resolved
-Off Levophed
-Midodrine TID. Maintain MAP >60
-ID input appreciated
-Deescalate Zosyn
-Vancomycin discontinued
# HRrEF exacerbation-
- for gentle ultrafiltration on HD due to hypotension
- nephro and cards consult
- echo 10/01- global hypokinesis ef 20%
- Continue Metoprolol Tartrate 12.5mg BID
#Altered mental status
Unresponsive episode
Intubated, Somnolent but rousable and nods in response to questions
- unclear etiology
- cont to monitor responsiveness post extubation/off sedation
- head CT neg for bleed
Hypoglycemia
- ET tube for enteral nutrition
- Blood glucose stable
- monitor
# Pulmonary edema
-Dialysis
#ESRD
-On hemodialysis Mondays, Wednesdays and Fridays
-HD today
#Sacral decubitus ulcer
- Wound care on board
#Hypercholesterolemia
-Statin
#GERD
-GI prophylaxis pantoprazole
#Insulin-dependent diabetes mellitus
On no home therapy
HbA1c 5.8
-Insulin sliding scale
# History of CAD
-Continue aspirin 81 mg
#Depression
Escitalopram and Mirtazapine
#HLD
#Visual impairment
DVT ppx Heparin
Dispo: DC back to [facility]
Code Status: Full code
Anticipated Discharge: > 48 hours
Subjective/Interval History
-
Date of Service: October 04, 2023
Two spontaneous breathing trials unsuccessful
Per daughter: Family meeting held among pt's children last night in the family home. Family decided on Limited DNR, with no CPR or reintubation upon extubation.
Low pressures overnight, with MAP> 60 maintained
Objective Data
-
Labs:
Laboratory Results
10/03/23 10/04/23
06:00 06:00
WBC Pending
Hgb Pending
Hct Pending
Plt Count Pending
HCO3 Cancelled
Sodium Pending
Potassium Pending
Chloride Pending
Carbon Dioxide Pending
BUN Pending
Creatinine Pending
Glucose Pending
Calcium Pending
Vital Signs:
Vital Signs
Temp Pulse Resp BP Pulse Ox
98.9 F 108 20 101/48 100
10/04/23 07:20 10/04/23 07:12 10/04/23 06:00 10/04/23 07:12 10/04/23 07:25
I&O
10/03/23 10/04/23 10/05/23
06:59 06:59 06:59
Intake Total 359.2 / 375.4 1067.5 / 1177.5 110 / 110
Output Total 0 / 0
Balance 359.2 / 375.4 1067.5 / 1177.5 110 / 110
Review of Systems
-
Unable to obtain full review of systems at this time due to: Patient Intubation
Physical Exam
-
General: Appears Chronically Ill and Other (somnolent)
HEENT: Normocephalic, Atraumatic and Other (pupils equal, with diminished/sluggish reaction to light. Visually impaired)
Respiratory: Clear to Auscultation
Cardiac: Regular Rhythm, S1/S2 and Murmur
GI: Soft, Nontender, Nondistended and Normal Bowel Sounds
Musculoskeletal: No Clubbing, No Cyanosis and Other
Skin: Dry and Other (cool lower extremities)
Neuro: Awake, Alert and Oriented
Psych: Calm
--- NOTE | 2023-10-04 08:00 | PTCARENOTE ---
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 Patient is intubated, vent settings as charted in worklist. off sedation, intermittently following some simple commands. Is sinus rhythm/sinus arrhythmia on monitor. Patient is at goal tolerating tube feed
through dobhoff, no bowel movement, anuric. Is on dialysis this morning. Will review orders, labs/VBG sent. plan to wean after treatment.
--- NOTE | 2023-10-04 08:05 | W.PN.INTV ---
Addendum entered and electronically signed by Erik Talavera MD 10/04/23 19:07:
Patient extubated, doing well. Will downgrade to IMU. Pulmonary service will continue to briefly follow along.
Original Note:
Today's Communication / Plan
Recommendations
Extubated, currently on BiPAP
Midrodrine 10mg TID as per nephrology
with no growth from 10/01
Assessment
-
Assessment: 78-year-old male with a past medical history of PAD s/p bilateral lower extremity amputations, hypertension, BPH, history of CVA, former tobacco use disorder and ESRD on HD who presents with unresponsiveness from [facility]
home. Per the staff he was normal at 10 AM and EMS arrived giving 3 pushes of epinephrine for blood pressure in the 70s. In triage he was hypotensive to 68/47, he was saturating 95% on a nonrebreather at 15 L/min, he was afebrile to 98.3 �F and
pulse rate was 75. Labs showed leukocytosis of 12.6, anemia to 10.8, hypercapnia with pCO2 58, pH 7.18, and blood cultures were collected. CXR showed left lower lobe suspected atelectasis with stable small bilateral pleural effusions. Because of
his altered mental status with hypercapnia he was intubated and then transferred to the ICU for further care. Critical care services now consulted for additional management/recommendations.
Conditions present prior to admission:
Legally blind.�
End-stage renal disease on hemodialysis.�
Diabetes.�
PAD-left AKA, right BKA.�
BPH.�
Hypertension.�
Hyperlipidemia.�
Melanoma.�
CVA.�
Depression.�
Former smoker.
Impression:
#Acute respiratory failure with hypoxia and hypercapnia - unclear if there is a preceding infection causing his acute hypercapnia; head CT is without evidence of acute intracranial hemorrhage or transcortical infarct
#Ventilator dependent respiratory failure
#Leukocytosis with positive blood culture (drawn 10/01/2023 with GPC in chains)
#Shock - initially was likely due to sepsis but now may be due to sedation - his CXR is relatively unchanged from prior CXR in June 2023, so unlikely there is a PNA causing his current Sx; source currently unknown
#ESRD on HD
#PAD s/p R-BKA, L-AKA
#DM type II (A1C: 5.8)
Plan:
#Acute respiratory failure with hypoxia and hypercapnia/ Ventilator dependent
-Clinically: awake, follows commands, minimal secretions, no cough. RSBI <105, O2 saturation 100,
-Extubated this AM, currently on BiPAP, monitor
-Sedation: continue Fentanyl boluses
-Continue PPI prophylaxis
- prn nebulized bronchodilators
-Incentive spirometer once extubated
- Aspiration precautions
#HFrEF
-echo: Severe LV global hypokinesis. LVEF 20%.
-Hold Metoprolol Succinate
-Metoprolol tartrate 10mg TID started as per nephro
#Shock - initially was likely due to sepsis but now may be due to sedation
- Continue broad spectrum Abx (Zosyn), discontinued Vancomycin
-ID consulted
-Infectious workup- on 10/01 negative, Sputum cx showed moderate budding yeast with pseudohyphae, hold off on U/A and Ucx as patient is anuric
- WBC trend is WNL and monitor fever curve
- Levophed discontinued on 10/02
-continue midodrine, maintain MAP>65
- Replete electrolytes with K>4, Mg>2
#Full Thickness Sacral Pressure Injury/?Stage 2
-Care as per wound care consult
-Possible debridement if wound continues to worsen
#ESRD
- Continue HD as per nephrology
#DM type II (A1C: 5.8)
- Maintain euglycemia with goal BG 140-180
- Continue ISS
-Continue NG placement, continue home medications
DVT ppx: Heparin
Data:
CXR 10-03-2023
1.Overall, stable radiographic appearance comparing to examination
2.small to moderate left pleural effusion with lateral loculation. Small right pleural effusion.
3.parenchymal airspace opacity within the left mid to lower lung, stable, with main differential considerations of atelectasis and/or pneumonia.
4. Right-sided hemodialysis catheter with tip over the SVC, stable.
CXR 10-01-2023:
1. Mild cardiomegaly with suggestion of mild interstitial and alveolar cardiogenic pulmonary edema.
2. Small bilateral pleural effusions.
3. Moderate left lower lobe airspace consolidation which has been present since June 2023 (either chronic pneumonia or a combination of atelectasis and scarring).
4. Right IJ hemodialysis catheter in place.
CT Head 10-01-2023:
1. No CT evidence for acute intracranial hemorrhage or transcortical infarct.
2. Moderate diffuse cerebral and cerebellar volume loss consistent with a chronic neurodegenerative disease.
3. Mild white matter leukoaraiosis in both cerebral hemispheres.
4. Minimal acute left sphenoid sinusitis.
Subjective Dataa
Subjective Data
Date of Service:
Date of Service: October 04, 2023
He had no significant overnight events. SBT was not attempted in the AM due to patient being on HD. He continues to be alert and able to follow commands.
Review of Systems
General: Unobtainable - Sedation
Objective Data
Data Reviewed
Vital Signs / I&O / Oxygen:
Vital Signs
Temp Pulse Resp BP Pulse Ox
98.9 F 74 12 108/86 100
10/04/23 07:20 10/04/23 07:45 10/04/23 07:45 10/04/23 07:45 10/04/23 07:52
Intake and Output
10/03/23 10/04/23 10/05/23
06:59 06:59 06:59
Intake Total 359.2 / 375.4 1067.5 / 1177.5 110 / 110
Output Total 0 / 0
Balance 359.2 / 375.4 1067.5 / 1177.5 110 / 110
SaO2 [ASV] 100
SaO2 [CPAP/PSV] 100
SaO2 [A/C] 100
SaO2 100
Nasal Cannula flow liters per 2
minute
Physical Exam
General: Comfortable
HEENT: Normocephalic and Anicteric
Cardiovascular: S1-S2
Respiratory: Crackles and Other (on BiPAP)
GI: Soft, Distended and Non Distended
Neurology: Awake
Skin: Warm
Labs/Micro/Reports
Laboratory Results
10/03/23
06:00
pH Cancelled
pCO2 Cancelled
pO2 Cancelled
HCO3 Cancelled
O2 Delivery Level Cancelled
Microbiology
10/01/23 15:22 Blood/Venous Blood Culture - Preliminary
No Growth in 48 hours- Final report to follow
10/01/23 15:22 Blood/Venous Blood Culture - Preliminary
Streptococcus species
Gram negative bacilli
10/01/23 15:22 Blood/Venous Gram Stain - Preliminary
10/02/23 09:29 Blood/Venous Blood Culture - Preliminary
No Growth in 24 hours- Final report to follow
10/02/23 09:05 Blood/Venous Blood Culture - Preliminary
No Growth in 24 hours- Final report to follow
10/01/23 22:53 Sputum Respiratory Culture - Final
10/01/23 22:53 Sputum Gram Stain - Final
[2023-10-04 08:12] LABS: Venous Blood Gas B.E. 0.7 mmol/L (-4 to +4); Venous Blood Gas HCO3 25.4 mmol/L (22-27); Venous Blood Gas O2 Sat % 99.2 %; Venous Blood Gas pCO2 40 mmHg (35-48); Venous Blood Gas pH 7.41 (7.32-7.43); Venous Blood Gas pO2 140 mmHg (30-50)
[2023-10-04 08:13] LABS: % Basophils 0.8 % (0-2); % Eosinophils 3.3 % (0-6); % Immature Granulocytes 0.5 % (0-0.5); % Lymphocytes 5.4 % (20.5-51.1); Absolute Basophils 0.1 10^3/uL (0-0.2); Absolute Eosinophils 0.2 10^3/uL (0-0.7); Absolute Lymphocytes 0.4 10^3/uL (1.2-3.4); Absolute Monocytes 0.5 10^3/uL (0.1-0.6); Absolute Neutrophils 5.3 10^3/uL (1.4-6.5); Hematocrit 26.9 % (39.0-52.0); Hemoglobin 8.7 g/dL (13.0-18.0); Mean Corp Hgb Conc. 32.3 g/dL (33.0-37.0); Mean Corpuscular Hgb 33.1 pg (27.0-31.0); Mean Corpuscular Volume 102.3 fL (80.0-94.0); Mean Platelet Volume 10.1 fL (7.4-10.4); Nucleated Red Blood Cells % 0 % (-); Platelet Count 177 10^3/uL (130-400); Red Blood Cell Count 2.63 10^6/uL (4.70-6.10); Red Cell Dist. Width 17.4 % (11.5-14.5); White Blood Cell Count 6.5 10^3/uL (4.8-10.8)
--- NOTE | 2023-10-04 08:24 | PHA.VAN.FU ---
Vancomycin Assessment / Plan
- Assessment
Hemodialysis Schedule: MWF
Last Hemodialysis performed: 10/01
In the past 24 hrs, patient has been: Afebrile
Concomitant Antimicrobials: piperacillin/tazobactam
- Assessment - Therapeutic Drug Monitoring
Based on random level yesterday - patient appropriate for re-dosing with HD today
- Dosing Plan
Dosing by Level: Re-dose today (Vanc 500mg)
- Monitoring Plan
No level(s) ordered at this time: consider pre-HD level for Monday
- Follow Up
Pharmacy will continue to follow.
Vancomycin Follow UP
- -
Patient Age: 78
Patient Sex: Male
Vancomycin Day #: 3
Indication: Pulmonary/Respiratory
Requesting Provider: Dr. Vivar
Pertinent Antimicrobial Allergies:
NKDA
Height / Weight:
Height 5 ft 6 in
Actual Weight 53.2 kg
IBW in k.8
Pertinent Past Medical History: ESRD on HD, L. BKA, R. AKA, BMI ~18.5 (adj 20.8 for amputations)
- Vital Signs / Lab Results
Temp Pulse Resp BP Pulse Ox
98.9 F 74 12 108/86 100
10/04/23 07:20 10/04/23 07:45 10/04/23 07:45 10/04/23 07:45 10/04/23 07:52
Lab Results - Hematology
10/01/23 10/02/23 10/03/23
15:22 01:38 03:27
WBC 12.6 H 8.9 8.7
Lab Results - Chemistry
10/01/23 10/02/23 10/02/23
15:22 00:26 01:38
BUN 49 H Cancelled 55 H
Creatinine 3.4 H Cancelled
Estimated Creat Clear Cancelled
Albumin 3.5
10/02/23 10/02/23 10/02/23
01:38 01:38 01:38
BUN Cancelled
Creatinine 3.8 H Cancelled
Estimated Creat Clear 14 Cancelled
Albumin 3.5
10/02/23 10/02/23 10/03/23
10:40 16:01 03:27
BUN Cancelled 22 H 28 H
Creatinine Cancelled 1.7 H 2.2 H
Estimated Creat Clear Cancelled 27 21
Albumin 3.0 L
10/03/23
10:00
BUN Cancelled
Creatinine Cancelled
Estimated Creat Clear Cancelled
Albumin
10/01/23 10/01/23 10/01/23
15:22 16:21 18:45
Lactic Acid Cancelled 2.4 H 1.9
10/01/23 10/01/23 10/02/23
19:36 23:36 03:36
Lactic Acid Cancelled Cancelled Cancelled
10/02/23
07:36
Lactic Acid Cancelled
Microbiology Results
10/01/23 15:22 Blood Culture - Preliminary
Blood/Venous No Growth in 48 hours- Final report to follow
10/01/23 15:22 Blood Culture - Preliminary
Blood/Venous Streptococcus species
Gram negative bacilli
Gram Stain - Preliminary
10/02/23 09:29 Blood Culture - Preliminary
Blood/Venous No Growth in 24 hours- Final report to follow
10/02/23 09:05 Blood Culture - Preliminary
Blood/Venous No Growth in 24 hours- Final report to follow
10/01/23 22:53 Respiratory Culture - Final
Sputum Gram Stain - Final
Therapeutic Drug Monitoring
Random Vancomycin 17.7 ug/ml 10/03/23 03:27
[2023-10-04 08:40] LABS: Blood Urea Nitrogen 40 mg/dl (9-20); Calcium 8.1 mg/dl (8.4-10.2); Carbon Dioxide 25 mmol/L (22-30); Chloride 98 mmol/L (98-107); Estimated Creatinine Clearance 15 ml/min; Glucose 145 mg/dl (70-99); Magnesium 1.8 mg/dl (1.6-2.3); Phosphorus 2.9 mg/dl (2.5-4.5); Potassium 4.2 mmol/L (3.5-5.1); Sodium 135 mmol/L (135-145); eGFR 19.32
[2023-10-04] MEDS: HEPARIN 500 UNITS IV ×2 (09:04→09:06)
[2023-10-04] MEDS: RETACRIT 6000 UNITS IV (09:05)
--- NOTE | 2023-10-04 09:26 | W.PN.NEPH.PH ---
Today's Communication / Plan
-
midodrine
Assessment/Plan
-
IMP:
AMS-unresponsive
Acute hypoxic respiratory failure -VDRF
GPC in chains bacteremia
septic shock
Right IJ HD catheter
HFrEF 25-30%, DD stage2
ESRD on HD-MWF RUE AVG [place]
mild hyperkalemia
Chr hypotension-midodrine dependent
HLD
History CAD with LA
Ex-smoker
DM 2-diet controlled, DM nephropathy
PAD right BKA and left AKA
GERD
Chronic anemia, multifactorial
Depression
BPH
Legally blind
History bladder cancer
Hyperphosphatemia
clotted right AVG s/p declot-non functioning
Left UE AVG created on 09/27
Chronic mild pulmonary edema with chronic loculated b/l pleural effusions and underlying parenchymal disease
Plan:
empiric abx continue
wean vent
off pressors so long as MAP > 60
restart midodrine at OP dose 10mg TID
HD today
critical care time 31 minutes
-
-
Date of Service: October 04, 2023
CC / HPI / ROS
-
Chief Complaint:
ESRD
History of Present Illness:
critically ill in ICU
off pressors, BP low
hgb lower 8.7
bld cx GN and strep, repeat NTD
no fever
Review of Systems:
intubated
semi awake
Labs
-
Labs:
WBC 6.5 10^3/uL (4.8-10.8) 10/04/23 07:43
RBC 2.63 10^6/uL (4.70-6.10) L 10/04/23 07:43
Hgb 8.7 g/dL (13.0-18.0) L 10/04/23 07:43
Hct 26.9 % (39.0-52.0) L 10/04/23 07:43
Plt Count 177 10^3/uL (130-400) 10/04/23 07:43
Sodium 135 mmol/L (135-145) 10/04/23 07:43
Potassium 4.2 mmol/L (3.5-5.1) 10/04/23 07:43
Chloride 98 mmol/L (98-107) 10/04/23 07:43
Carbon Dioxide 25 mmol/L (22-30) 10/04/23 07:43
BUN 40 mg/dl (9-20) H 10/04/23 07:43
Creatinine 3.2 mg/dL (0.7-1.3) H 10/04/23 07:43
eGFR 19.32 10/04/23 07:43
Glucose 145 mg/dl (70-99) H 10/04/23 07:43
Calcium 8.1 mg/dl (8.4-10.2) L 10/04/23 07:43
Phosphorus 2.9 mg/dl (2.5-4.5) 10/04/23 07:43
Albumin 3.0 g/dl (3.5-5.0) L 10/03/23 03:27
Physical Exam
-
Vital Signs:
Vital Signs
Temp Pulse Resp BP Pulse Ox
98.9 F 74 12 108/86 100
10/04/23 07:20 10/04/23 07:45 10/04/23 07:45 10/04/23 07:45 10/04/23 07:52
Cardiovascular:: Regular rate and rhythm
Respiratory:: Bilateral: Coarse
Lung Excursion:: Normal
Abdomen:: Nontender and Soft
Bowel Sounds:: Normal
Extremity Edema:: None: Bilateral:
Other Findings::
AVG thrill
--- NOTE | 2023-10-04 09:29 | W.PN.NEPH.HD ---
Assessment
-
Seen on HD. BP stable low. poorly communicative, Access ok CVC
Progress Note - Hemodialysis
-
Date of Service: October 04, 2023
Duration: 30 minutes and 3 hours
Potassium Bath: 2
Calcium Bath: 2.5
Opti-Dialyzer: 160
Ultrafiltration: Other (2kg)
Blood Flow: 400
Dialysate Flow: 600
Heparin: 500 x 2
EPO: 6000 units
--- NOTE | 2023-10-04 09:39 | PN.CDI ---
CDI
- -
CDI:
Physician Documentation Request
Admit Date: 10/01/23 18:53
Dear Doctor Rony,
Please review the following and provide your response in the progress notes.
Clinical Indicators:
Pt admitted with sepsis /shock unclear source possibly sacral wound vs HD catheter work up in progress /Acute hypercapnic/Hypoxic Respiratory failure currently on ventilator .
Documented per ED, ' presents the emergency department with unresponsiveness first noted approximately 10 AM as per EMS staff....He was given a 'push dose' of epinephrine x 3 without resolution of his hypotension. He remains unresponsive. ...
Altered mental status.'
Documented throughout the record, ' Unresponsiveness, with probable sepsis..'
Update note 09/30 967,' Upon arrival from the ER, patient not responsive to noxious stimuli....After period of time, patient was still not responsive, deep noxious stimuli patient lifted eye brows and slightly twitched hand but no spontaneous
movement otherwise. ABG obtained with minimal improvements in pH now 7.20 and CO2 56, respirations continue to be shallow and bradypnea, on 15 L on bipap now. ...'
Based on the above, could you clarify in the Progress Notes and Discharge Summary which, if any of the following, is the most likely etiology of the confusion/altered mental status.
Metabolic Encephalopathy
Toxic Metabolic Encephalopathy
Unresponsive only
Other (Please Specify)
Use of terms such as suspected, likely, concern for, or probable (associated with a specific diagnosis that is being evaluated, monitored, or treated as if it exists) are acceptable and can be coded in the inpatient setting, when documented at the
time of discharge.
Thank you,
Vickie Theodore RN
CDI Specialist
[place] [employer]
Please use your independent medical judgment in providing your response.
--- NOTE | 2023-10-04 09:56 | PN.CDI ---
CDI
- -
CDI:
Physician Documentation Request
Admit Date: 10/01/23 18:53
Dear Doctor Rony,
Please review the following and provide your response in the progress notes.
Clinical Indicators:
Pt admitted with sepsis /shock unclear source possibly sacral wound vs HD catheter work up in progress /Acute hypercapnic/Hypoxic Respiratory failure currently on ventilator /CHF exacerbation
There is potentially conflicting documentation in the record regarding the type of CHF .
Documented per H&P, ' Chronic combined systolic (congestive) and diastolic (congestive) heart failure..'
Progress notes 10/01 &10/02 ,' HRrEF exacerbation-...echo 10/01- global hypokinesis ef 20%...'
ECHO on 10/01, ' LVEF 20%..... Moderately reduced left ventricular systolic function. Severe global hypokinesis. Left ventricular ejection fraction is 20% by visual assessment. Diastolic function indeterminate.
Please provide further specificity regarding the most likely type of CHF you are evaluating, treating or monitoring.
Acute on Chronic Combined CHF
Acute on Chronic Systolic CHF
Other (please specify)
Use of terms such as suspected, likely, concern for, or probable (associated with a specific diagnosis that is being evaluated, monitored, or treated as if it exists) are acceptable and can be coded in the inpatient setting, when documented at the
time of discharge.
Thank you,
Vickie Theodore RN
CDI Specialist
[place] [employer]
Please use your independent medical judgment in providing your response.
[2023-10-04] MEDS: VANCOCIN HCL 500 MG 100 IV (10:38)
--- NOTE | 2023-10-04 10:55 | W.PN.UPDATE ---
Update Note
Progress Note Update
Conversation held with the patient's daughter, Samia, this morning. She had discussed the patient's clinical status and code status with remaining family members. Decision made to make him DNR and once he is extubated, they do not want him to be
reintubated if he were to fail. I answered all her questions about what this means and that if he were to require intubation again or if his heart were to stop that we would not intervene, and he would pass away. She understood what this meant.
She obviously hopes for the best but understands that he has been through a lot, he is not in good health as it is and if his heart were to stop or if his breathing were to worsen then they understand that that is his time and they would not want to
prolong the inevitable and most importantly, not prolong suffering. Emotional support was provided and I answered all of her questions. Code status changed in the computer on [employer].
--- NOTE | 2023-10-04 11:40 | PTCARENOTE ---
1 Liter taken off during dialysis. Code status changed to limited DNR per family discussion. Weaning and sent VBG
[2023-10-04 11:46] LABS: Venous Blood Gas B.E. 4.2 mmol/L (-4 to +4); Venous Blood Gas HCO3 30.5 mmol/L (22-27); Venous Blood Gas O2 Sat % 98.4 %; Venous Blood Gas pCO2 54 mmHg (35-48); Venous Blood Gas pH 7.36 (7.32-7.43); Venous Blood Gas pO2 104 mmHg (30-50)
[2023-10-04 11:50] LABS: Glucose - Point of Care 121 mg/dl (70-99)
--- NOTE | 2023-10-04 11:51 | CON.ID ---
Consultation
-
Date/Time Consultation Requested: October 03, 2023 1747
Date/Time Consultation Performed: October 04, 2023 1150
Requesting Provider: Dr. Vita La
Performing Provider: Dr. Juliane Fine
Reason for Consultation: Bacteremia
Chief Complaint / Past History
Chief Complaint
Unresponsiveness
History of Present Illness
History obtained from review medical records as well as from daughter at bedside. He is a 78-year-old male with slow cognitive decline, diabetes mellitus, neuropathy, end-stage renal disease on hemodialysis via catheter, recent left upper extremity
AV fistula graft placement on September 28, 2023, PAD status post bilateral lower extremity amputations, heart failure with reduced EF who was found unresponsive [facility] facility. He was sent to the ER on September 30. White count was 12.6. Afebrile.
Blood pressure in the 60s and 70s systolic. Chest x-ray shows left lower lobe opacity which was present since June 2023. Later that evening patient with acute hypercapnic and hypoxic respiratory failure he was intubated, also on pressor.
Echocardiogram shows ejection fraction of 20% which was stable. Admission blood culture 1 out of 2 sets positive for Streptococcus and gram-negative bryson. Sputum culture was not acceptable. Today patient is extubated, on Per daughter he is more
alert. She reports no history of aspiration. He is coughing today. No diarrhea. No vomiting.
Past History
Additional Past Medical History:
Suspected dementia
Insulin-dependent diabetes mellitus
Neuropathy
End-stage renal disease on hemodialysis via HD catheter
s/p LUE AV fistula with PTFE gore graft (09/28/23)
non-functioning R UE AVF
Chronic hypotension
Dyslipidemia
HFrEF
BPH status post TURP
Depression
CAD s/p stent
CVA
PAD d/p R fem artery stent
Left above-knee amputation
Right below-knee amputation
Bladder cancer
Legally blind
Allergy History:
No Known Allergies Allergy (Verified 10/01/23 14:23)
Medications Reviewed: Yes
Current Antibiotics:
Vancomycin day 4
Zosyn day 4
Social History
Tobacco: Former Smoker
Alcohol: None
Drug: None
Living: Correction ([facility])
Family History
Family History: Not Pertinent
Review of Systems
Review of Systems
Unable to fully obtain due to lethargy.
Vital Signs
Temp Pulse Resp BP Pulse Ox
98.2 F 96 15 121/60 100
10/04/23 11:10 10/04/23 11:30 10/04/23 11:30 10/04/23 11:30 10/04/23 11:30
Physical Exam
Physical Exam
Constitutional: Acutely Ill
Eyes: No Conjunctival Hemorrhage and Sclera Anicteric
Cardiovascular: Regular Rate and S1/S2
Pulmonary: Other (Decreased breath sounds at the bases)
Gastrointestinal: Soft, Non Tender, Non Distended and Normal Bowel Sounds
Genito-Urinary: Negative CVA Tenderness
Extremities: Negative Edema (BLE stumps)
Skin: Other (Left upper extremity AVG site without induration or erythema)
Neurological: Other (Lethargic)
Lines: HD Cath (Right IJ without tenderness/erythema)
Lab / Diagnostic Study Results
10/04/23 07:43
10/04/23 07:43
Abs Immat Gran (auto) 0.0 10^3/uL (0-0.05) 10/04/23 07:43
Absolute Neuts (auto) 5.3 10^3/uL (1.4-6.5) 10/04/23 07:43
Absolute Lymphs (auto) 0.4 10^3/uL (1.2-3.4) L 10/04/23 07:43
Absolute Monos (auto) 0.5 10^3/uL (0.1-0.6) 10/04/23 07:43
Absolute Basos (auto) 0.1 10^3/uL (0-0.2) 10/04/23 07:43
Immature Gran % 0.5 % (0-0.5) 10/04/23 07:43
Neutrophils % 82.0 % (42.2-75.2) H 10/04/23 07:43
Lymphocytes % 5.4 % (20.5-51.1) L 10/04/23 07:43
Monocytes % 8.0 % (1.7-9.3) 10/04/23 07:43
Eosinophils % 3.3 % (0-6) 10/04/23 07:43
Basophils % 0.8 % (0-2) 10/04/23 07:43
PT 18.8 Sec (11.4-14.6) H 10/02/23 09:05
INR 1.60 10/02/23 09:05
Lactic Acid Cancelled 10/02/23 07:36
Microbiology Results
Micro:
10/02/23 09:29 Blood Culture - Preliminary
Blood/Venous No Growth in 48 hours- Final report to follow
10/01/23 15:22 Blood Culture - Preliminary
Blood/Venous Streptococcus species
Gram negative bacilli
Gram Stain - Preliminary
10/02/23 09:05 Blood Culture - Preliminary
Blood/Venous No Growth in 48 hours- Final report to follow
10/01/23 15:22 Blood Culture - Preliminary
Blood/Venous No Growth in 48 hours- Final report to follow
10/01/23 22:53 Respiratory Culture - Final
Sputum Gram Stain - Final
10/01/23 CXR: Mild cardiomegaly with suggestion of mild interstitial and alveolar cardiogenic pulmonary edema. Small bilateral pleural effusions.Moderate left lower lobe airspace consolidation which has been present since June 2023 (either chronic
pneumonia or a combination of atelectasis and scarring).
10/02/23 CXR: Small bilateral pleural effusions with associated left lower lobe atelectasis, slightly progressed.
10/04/23 CXR: Predominantly stable appearance of the chest with findings suggesting small to moderate bilateral pleural effusions.
Assessment / Plan
# Polymicrobial bacteremia 1 out of 2 sets; from anaerobic bottle strep species and GNR
- Suspect contaminant
- Repeat blood cx's neg
# Possible pneumonia?
- CXR without new infiltrates compared to CXR 3 months ago.
- DC Vancomyin
- deescalate Zosyn (d4) within next 24h.
# CHF exacerbation
- Of note, Zosyn has high sodium content.
# s/p unresponsiveness
-improving
--- NOTE | 2023-10-04 12:07 | PTCARENOTE ---
Tube feeds on hold to prepare for extubation
--- NOTE | 2023-10-04 12:25 | PTCARENOTE ---
Patient extubated to bipap, will stay on bipap for 2 hours, and then at HS. Tube feeds on hold while on bipap.
--- NOTE | 2023-10-04 12:40 | RESPNOTE ---
Patient was placed on SBT 5/5 wean as per MD Talavera. Tolerated fairly well. Per fabiano MADISONay to extubate pending VBG results. VBG results: 7.36/54/104/30.5/98%. Per fabiano MADISON to extubate. Extubated to bipap 04/04, 10, with 4L bled in at 12:24pm. No
stridor on extubation. Tolerating fairly well at this time.
--- NOTE | 2023-10-04 12:44 | CM ---
Patient continues with Vent Weaning.
HD today.
IV antibiotics.
Plan: LTC [place] when medically stable.
--- NOTE | 2023-10-04 16:00 | PTCARENOTE ---
Patient has remained extubaed and now off bipap since 1499. Is on 4L nasal cannula, somnolent, but follows commands. Family is present at bedside, updated on plan of care. Will require bipap HS.
--- NOTE | 2023-10-04 16:39 | PN.CDI ---
CDI
- -
CDI:
Physician Documentation Request
Admit Date: 10/01/23 18:53
Dear Doctor ,
Please review the following and provide your response in the progress notes.
Clinical Indicators:
Pt admitted with sepsis /shock unclear source possibly sacral wound vs HD catheter work up in progress /Acute hypercapnic/Hypoxic Respiratory failure currently on ventilator /CHF exacerbation
Documented in the record is pt has a sacral pressure injury Wound care note 10/02 ,' full thickness DTI (stage 3 or stage 4) sacral pressure injury, dark red with purple ecchymosis. L medial buttocks with small purple area suspect will be a stage
2.....Sacral dressing changed. Silicone border foam applied L buttocks....'
Physician documentation of the type and location of wounds is required for compliant documentation. Based on the above clinical findings and your assessment, please provide the following in your progress note:
1. Location of the ulcer/wound, including laterality.( F0r Each Wound)
2. Type (etiology) of ulcer/wound:
-
- Pressure (decubitus) ulcer
- Non-pressure ulcer
- Other
Use of terms such as suspected, likely, concern for, or probable (associated with a specific diagnosis that is being evaluated, monitored, or treated as if it exists) are acceptable and can be coded in the inpatient setting, when documented at the
time of discharge.
Thank you,
Vickie Theodore RN
CDI Specialist
[place] Text
Please use your independent medical judgment in providing your response.
*Source: National Pressure Ulcer Advisory Panel (NPUAP)
[2023-10-04] MEDS: LIPITOR 80 MG TUBE (17:05)
[2023-10-04] MEDS: SANTYL OINTMENT 1 APPLIC TOPICAL (17:05)
[2023-10-04 17:17] LABS: Glucose - Point of Care 126 mg/dl (70-99)
--- NOTE | 2023-10-04 20:00 | PTCARENOTE ---
rec`d pt at 1900. blind at baseline. opens eyes, follows commands. s arrhythmia on monitor. 4L NC, coarse BS. dobhoff @70 left nare. nepro at 35 mL w/ 25 water flush. anuric. rt BKA and left AKA. stage 4 on sacrum. rt hand skin tears. both covered
with foams. rt 20FA and rt internal jugular hemodialysis tunneled cath. call casanova in reach. safe environment maintained.
[2023-10-04] MEDS: REMERON 7.5 MG TUBE (20:28)
[2023-10-04] MEDS: LEXAPRO 5 MG TUBE (20:28)
[2023-10-04 23:26] LABS: Glucose - Point of Care 119 mg/dl (70-99)
[2023-10-05] VITALS (29 sets, daily range): BP systolic 79–104; BP diastolic 42–72; PULSE 2–68; BMI 18.8
[2023-10-05] MEDS: HEPARIN 5000 UNITS SC ×2 (00:42→08:37)
[2023-10-05] MEDS: ZOSYN 50 IV ×2 (00:42→08:39)
--- NOTE | 2023-10-05 04:15 | PTCARENOTE ---
pt pulled NGT out of nose. tube feeds stopped.
--- NOTE | 2023-10-05 06:13 | W.PN.HOSP.TC ---
Addendum entered and electronically signed by Will Uribe MD 10/05/23 21:09:
I saw and evaluated the patient. I reviewed the resident�s note and agree with findings and plan as documented in the resident�s note. Full 12 point ROS reviewed and attempted. Patient falling asleep. Appears to be coherent. Noted to have right
facial droop per nursing. Patient has no complaints. Denies neuro sxs. Seen with daughter present. Exam: Vitals reviewed in chart GEN-NAD heart RRR lungs scattered crackles abd NG tube in place soft Ext- LE left BKA right AKA, Right IJ tunneled
cath present neuro right facial droop Plan:
# Ventilator Dependent Respiratory Failure
- intubated 10/01
- extubated 10/03
- d/w family re changing code status to DNR after extubation- NOT TO BE REINTUBATED
- transfer to med surg- start comfort care
# Septic Shock unclear source
- blood cx pos for GPC and GNB - possible contaminant
- DC vanco cont Rocephin- transition to Augmentin
- repeat blood cx x 2 NGTD 10/01
- weaned off levophed
- c/s ID - appreciate input
- monitor closely
# Dysphagia-
- failed VFSS
- NPO
- hospice talks had- all parties are in agreement
- start comfort care
- transition to home hospice when able
- c/s hospice
# Unresponsive Episode-at [place] probable
- unclear etiology
- cont to monitor responsiveness post extubation/off sedation
- head CT neg for bleed
- transition to comfort care
# HRrEF exacerbation-
- ultrafiltration on HD
- nephro and cards input appreciated
- echo 10/01- global hypokinesis ef 20%
- cont metoprolol
- cont midodrine for support
- poor prog - cont hospice likely DC HD
# PAD-
- s/p AKA and BKA
- cont wound care
# Sacral Ulcer stage 2 pressure
- left medial sacrum
- POA
- cont wound care
# H/O IDDM-
- not on home meds
- cont SSI for now
# ESRD-
- on HD MWF
- nephro input appreciated
# Depression-
- cont Remeron and Lexapro
# HLD-
- cont atorvastatin
DVT proph-heparin
Dispo eventual DC back home on hospice
Time spent coordinating care, review of plan of care with resident, review of records, med rec, consults, notes, labs, rads, d/w nursing family and ICU team/hospice� 68 mins
Original Note:
Today's Communication/Plan
-
IMU transfer
Assessment / Plan
Assessment / Plan
Acute problems:
Acute hypoxic hypercapnic respiratory failure
Sepsis
Conditions HOSPITAL MEDICAL ASSISTANT:
ESRD
Hypercholesterolemia
GERD
Insulin-dependent diabetes mellitus
Visual impairment
History of CAD
#Ventilator dependent respiratory failure
Head CT showed no acute intracranial process
Chest x-ray: Stable small bilateral pleural effusions and left lower lobe probable atelectasis.
intubated 09/30-10/03. Extubated at 12:24pm 10/03. Not to be reintubated
Bipap HS
Self-removed ET tube, speech therapy evaluation to transition to regular diet
#Septic shock
Secondary to respiratory vs pressure ulcer vs vascular lines
Blood cultures 09/30 positive for Strep and gram negative bacilli. F/U blood Cx 10/01 no growth
Leukocytosis now resolved
-Off Levophed
-Midodrine TID. Maintain MAP >60
-ID input appreciated
-Deescalate Zosyn
-Vancomycin discontinued
# HRrEF exacerbation-
- for gentle ultrafiltration on HD due to hypotension
- nephro and cards consult
- echo 10/01- global hypokinesis ef 20%
- Continue Metoprolol Tartrate 12.5mg BID
#Altered mental status
Unresponsive episode
Seems to be resolved postextubation. Alert and appropriately responsive on exam today
- unclear etiology
- cont to monitor
- head CT neg for bleed
Hypoglycemia
- ET tube for enteral nutrition
- Blood glucose stable
- monitor
# Pulmonary edema
-Dialysis
#ESRD
-On hemodialysis Mondays, Wednesdays and Fridays
-HD today
#Pressure ulcer
Left buttock, sacral wounds
- Wound care on board
#Hypercholesterolemia
-Statin
#GERD
-GI prophylaxis pantoprazole
#Insulin-dependent diabetes mellitus
On no home therapy
HbA1c 5.8
-Insulin sliding scale
# History of CAD
-Continue aspirin 81 mg
#Depression
Escitalopram and Mirtazapine
#HLD
#Visual impairment
DVT ppx Heparin
Dispo: DC back to [facility]
Code Status: Full code
Anticipated Discharge: 24 - 48 hours
Subjective/Interval History
-
Date of Service: October 05, 2023
Extubated at noon 06/05 to bipap, to nasal cannula 4L in afternoon.
Pt pulled NGT out, stopping tube feeds
Pt appears very alert, responsive to all questions
Objective Data
-
Labs:
Laboratory Results
10/05/23
06:00
WBC Pending
Hgb Pending
Hct Pending
Plt Count Pending
Sodium Pending
Potassium Pending
Chloride Pending
Carbon Dioxide Pending
BUN Pending
Creatinine Pending
Glucose Pending
Calcium Pending
Vital Signs:
Vital Signs
Temp Pulse Resp BP Pulse Ox
97.1 F 67 3 83/72 93
10/05/23 03:43 10/05/23 06:01 10/05/23 06:00 10/05/23 05:30 10/05/23 06:01
I&O
10/03/23 10/04/23 10/05/23
06:59 06:59 06:59
Intake Total 359.2 / 375.4 1067.5 / 1177.5 1190 / 1190
Output Total 0 / 0
Balance 359.2 / 375.4 1067.5 / 1177.5 1190 / 1190
Review of Systems
-
History Source: Patient
Constitutional: Reports Fatigue; Denies Fever
Respiratory: Denies Cough or Trouble Breathing
Cardiac: Denies Chest Pain, Palpitations or Syncope
Abdomen/GI: Denies Abdominal Pain
Neuro: Denies Dizzy or Headache
Physical Exam
-
General: Appears Chronically Ill
HEENT: Normocephalic and Atraumatic
Respiratory: Clear to Auscultation; Negative Wheezes, Rales, Rhonchi or Crackles
Cardiac: Regular Rhythm and S1/S2; Negative Murmur or Calf Tenderness
GI: Soft, Nontender, Nondistended and Normal Bowel Sounds
Musculoskeletal: No Clubbing, No Cyanosis and No Edema
Skin: Warm and Dry
Neuro: Awake, Alert and Oriented
Psych: Calm
[2023-10-05 06:14] LABS: Glucose - Point of Care 106 mg/dl (70-99)
[2023-10-05] MEDS: PROTONIX IV 40 MG IV (08:38)
[2023-10-05] MEDS: LOW STRENGTH ASPIRIN 81 MG TUBE (08:38)
[2023-10-05] MEDS: ProAmatine 10 MG TUBE (08:38)
[2023-10-05] MEDS: NSS (PRESERVATIVE FREE) 10 ML IV (08:38)
--- NOTE | 2023-10-05 08:40 | W.PN.PUL3 ---
Today's Communication / Plan
-
Pain control
Patient interested in hospice and so his family - case management consult placed
Given that patient is interested in hospice, pulmonary service will now sign off. Thank you for allowing us to be involved in the care of this patient. Please reconsult if there are any additional questions/concerns, or if patient's respiratory
status deteriorates.
Assessment
-
Assessment: 78-year-old male with a past medical history of PAD s/p bilateral lower extremity amputations, hypertension, BPH, history of CVA, former tobacco use disorder and ESRD on HD who presents with unresponsiveness from [facility] nursing
home. Per the staff he was normal at 10 AM and EMS arrived giving 3 pushes of epinephrine for blood pressure in the 70s. In triage he was hypotensive to 68/47, he was saturating 95% on a nonrebreather at 15 L/min, he was afebrile to 98.3 �F and
pulse rate was 75. Labs showed leukocytosis of 12.6, anemia to 10.8, hypercapnia with pCO2 58, pH 7.18, and blood cultures were collected. CXR showed left lower lobe suspected atelectasis with stable small bilateral pleural effusions. Because of
his altered mental status with hypercapnia he was intubated and then transferred to the ICU for further care. Critical care services now consulted for additional management/recommendations.
Conditions present prior to admission:
Legally blind.�
End-stage renal disease on hemodialysis.�
Diabetes.�
PAD-left AKA, right BKA.�
BPH.�
Hypertension.�
Hyperlipidemia.�
Melanoma.�
CVA.�
Depression.�
Former smoker.
Impression:
#Acute respiratory failure with hypoxia and hypercapnia - unclear if there is a preceding infection causing his acute hypercapnia; head CT is without evidence of acute intracranial hemorrhage or transcortical infarct
#Ventilator dependent respiratory failure --> extubated on 10/04/2023
#Leukocytosis with Enterococcus faecalis bacteremia + GNR (drawn 10/01/2023)
#Shock - likely due to sepsis + sedation - his CXR is relatively unchanged from prior CXR in June 2023, so unlikely there is a PNA causing his current Sx; source currently unknown --> shock now resolved
#ESRD on HD
#PAD s/p R-BKA, L-AKA
#DM type II (A1C: 5.8)
#Chronic HFrEF
#Difficult IV access
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
#Valvular heart disease with mild�moderate MR and mild TR/PI
Plan:
-Patient and family are interested in pursuing hospice
-Ultimately they would like to go home on hospice
-Case management hospice consult placed
-Would give prn Dilaudid + Ativan + glycopyrrolate for comfort care while patient remains inpatient
- Follow-up blood culture (drawn on 10/01/2023) GNR species + sensitivities --> grew Enterococcus faecalis, ID convinced that this blood culture is a contaminant
- Continue broad-spectrum antibiotics as per ID - currently on Rocephin s/p Zosyn (09/30 - 10/04) and IV vanc from 09/30 - 10/03
- Consider right anterior chest wall permacath removal/line holiday especially if blood cultures show persistent bacteremia or if there is concern for indwelling line infection --> so far he remains afebrile, WBC normalized and repeat Bcx show NGTD
---> no indication to remove HD catheter at this time fco now that pt is pursuing hospice
- HD as per nephrology
- Wound care consulted
- PT/OT and WAFER PRODUCTION LEAD WORKER eval
- Pt pulled his NGT; unable to do tube feeds or PO meds given he failed his VSE today per WAFER PRODUCTION LEAD WORKER. Pt is now pursuing hospice - ok for comfort feeds once he is officially enrolled in hospice
- Goal BG 140-180mg/dL
- Transition PO meds to IV until pt officially enrolls into hospice
- Maintain SpO2>90-94% with supplemental O2
- Pain control
- DVT ppx: HSQ
I had a discussion with the patient and from his multiple family members today. He wishes to go home on hospice. He is not even sure if he wants to continue dialysis and the family is also okay with this. Case management consult placed for
hospice and we will see if patient can qualify for home hospice or if he needs to continue inpatient care with enrollment in hospice here.
Given that patient is interested in hospice, pulmonary service will now sign off. Thank you for allowing us to be involved in the care of this patient. Please reconsult if there are any additional questions/concerns, or if patient's respiratory
status deteriorates.
Total time spent today was 55 minutes for this encounter. Time includes reviewing laboratory test/imaging results, reviewing pertinent medical records, obtaining and reviewing medical history, performing an appropriate exam, ordering medications,
tests and procedures. Time also includes documentation of this encounter, coordinating patient care and communicating with other healthcare professionals. Total time does not include separately billed tests performed on this date of service.
Subjective Data
-
Date of Service:
Date of Service: October 05, 2023
Chief Complaint: Pulmonary Follow Up
Subjective:
Patient seen and evaluated this morning. Apparently there was some concern for worsening right-sided facial droop per the [id number]. When I saw the patient he was lethargic and I was unable to do a full neurological physical exam given his
generalized weakness and lethargy. Heart rate 69, saturating 100% on 4 L/min and BP 88/56. Family is interested in hospice to all other questions were answered. Ultimately, the patient would like to go home on hospice. Video swallow performed
today showing moderate�severe pharyngeal dysphagia. Recommended NPO.
Review of Systems
General: Other (Negative unless mentioned above)
Objective Data
Data Reviewed
Vital Signs / I&O / Oxygen:
Vital Signs
Temp Pulse Resp BP Pulse Ox
97.5 F 83 17 86/53 96
10/05/23 07:48 10/05/23 07:34 10/05/23 07:34 10/05/23 08:38 10/05/23 07:34
Intake and Output
10/04/23 10/05/23 10/06/23
06:59 06:59 06:59
Intake Total 1067.5 / 1177.5 1190 / 1190
Balance 1067.5 / 1177.5 1190 / 1190
SaO2 [ASV] 100
SaO2 [CPAP/PSV] 100
SaO2 [A/C] 100
SaO2 96
Nasal Cannula flow liters per 4
minute
Physical Exam
General: Respiratory Distress (negative) and Comfortable
HEENT: Normocephalic and Anicteric
Cardiovascular: Peripheral Edema (negative) and Other (Normal heart rate)
Respiratory: Wheeze (negative), Crackles (Bilateral), Rhonchi (Negative) and Accessory Resp Muscle Use (negative)
GI: Soft, Non Distended, Non Tender and Normal Bowel Sounds
Neurology: Lethargic (Easily arousable and following commands)
Skin: Warm, Dry and Other (Sacral decubitus ulcer with skin breakdown (stage II) without purulent discharge seen; R-BKA, L-AKA)
Labs/Micro/Reports
Microbiology
10/02/23 09:05 Blood/Venous Blood Culture - Preliminary
No Growth in 72 hours- Final report to follow
10/01/23 15:22 Blood/Venous Blood Culture - Preliminary
No Growth in 72 hours- Final report to follow
10/02/23 09:29 Blood/Venous Blood Culture - Preliminary
No Growth in 48 hours- Final report to follow
10/01/23 15:22 Blood/Venous Blood Culture - Preliminary
Streptococcus species
Gram negative bacilli
10/01/23 15:22 Blood/Venous Gram Stain - Preliminary
10/01/23 22:53 Sputum Respiratory Culture - Final
10/01/23 22:53 Sputum Gram Stain - Final
--- NOTE | 2023-10-05 08:40 | W.PN.NEPH.PH ---
Today's Communication / Plan
-
HD tomorrow
Assessment/Plan
-
IMP:
AMS-unresponsive
Acute hypoxic respiratory failure -VDRF
GPC in chains bacteremia
septic shock
Right IJ HD catheter
HFrEF 25-30%, DD stage2
ESRD on HD-MWF RUE AVG [place]
mild hyperkalemia
Chr hypotension-midodrine dependent
HLD
History CAD with WI
Ex-smoker
DM 2-diet controlled, DM nephropathy
PAD right BKA and left AKA
GERD
Chronic anemia, multifactorial
Depression
BPH
Legally blind
History bladder cancer
Hyperphosphatemia
clotted right AVG s/p declot-non functioning
Left UE AVG created on 09/27 (anticipated use 3 weeks after creation)
Chronic mild pulmonary edema with chronic loculated b/l pleural effusions and underlying parenchymal disease
Plan:
empiric abx continue
continue midodrine at OP dose 10mg TID
HD tomorrow
critical care time 31 minutes
-
-
Date of Service: October 05, 2023
CC / HPI / ROS
-
Chief Complaint:
ESRD
History of Present Illness:
critically ill in ICU
off pressors, BP low, on high dose midodrine
hgb lower 8.7 yesterday labs pending this am
BCx negative most recently
no fevers
self extubated 10/03
Review of Systems:
no CP/SOB
Labs
-
Labs:
eGFR 19.32 10/04/23 07:43
Albumin 3.0 g/dl (3.5-5.0) L 10/03/23 03:27
Physical Exam
-
Vital Signs:
Vital Signs
Temp Pulse Resp BP Pulse Ox
97.5 F 83 17 86/53 96
10/05/23 07:48 10/05/23 07:34 10/05/23 07:34 10/05/23 08:38 10/05/23 07:34
Cardiovascular:: Regular rate and rhythm
Respiratory:: Bilateral: Coarse
Lung Excursion:: Normal
Abdomen:: Nontender and Soft
Bowel Sounds:: Normal
Extremity Edema:: None: Bilateral:
Other Findings::
AVG +thrill
[2023-10-05 08:42] LABS: Glucose - Point of Care 89 mg/dl (70-99)
--- NOTE | 2023-10-05 08:45 | PTOTSP ---
Speech Language Pathology
Pt seen for clinical bedside swallow evaluation. Hypernasality and nasal emission noted upon entry to room. Cranial nerve examination completed. Glossopharyngeal (IX) findings: velar deviation to the L with palatal weakness noted during task of
impounding air. Facial (VII) findings: possible slight R facial droop. No issues noted with CN V, X, XI, or XII.
P.O. trials of puree, thin liquids, and mildly thick liquids provided. Inconsistent coughing with thin liquids via cup and straw. Intermittent wet vocal quality post mildly thick liquids. Pt is at a higher risk for aspiration given recent
extubation, general deconditioning, and cognitive status.
Recommend:
(1) VSE
(2) NPO pending VSE
(3) Oral care 4x/day with suctioning as needed
(4) Allow meds crushed in puree pending VSE
(5) Aspiration Risk Hydration Protocol to be determined post VSE
(6) HOOK TENDER to continue to follow
--- NOTE | 2023-10-05 09:11 | CM ---
Case Management Consult completed
Spoke with patient's primary contact/son to obtain hospice agency preference; referral sent to [facility] via [facility]
[place] Text sent and acknowledged by senior cost analyst On-Call, Ariella Nick
--- NOTE | 2023-10-05 09:25 | HOSPNOTE ---
Spoke with son and explained hospice and the philosophy. The son Esteban would like to speak with the other family members and will get back to me. The family is requesting a family meeting and the son will call me later today to set up a meeting.
More information to follow.
--- NOTE | 2023-10-05 10:56 | W.PN.ID1 ---
Date of Service
Date of Service: October 05, 2023
Today's Communication
Transition Zosyn (d4) to Augmentin 500mg po q24 through 10/07/23.
Assessment / Plan
# Polymicrobial bacteremia 1 out of 2 sets; from anaerobic bottle strep species and GNR
- Suspect contaminant
- Repeat blood cx's neg
# Possible pneumonia
- Transition Zosyn (d4) to Augmentin 500mg po q24 through 10/07/23.
# CHF exacerbation
- Of note, Zosyn has high sodium content.
# s/p unresponsiveness - resolved
#Additional Past Medical History:
Suspected dementia
Insulin-dependent diabetes mellitus
Neuropathy
End-stage renal disease on hemodialysis via HD catheter
s/p LUE AV fistula with PTFE gore graft (09/28/23)
non-functioning R UE AVF
Chronic hypotension
Dyslipidemia
HFrEF
BPH status post TURP
Depression
CAD s/p stent
CVA
PAD d/p R fem artery stent
Left above-knee amputation
Right below-knee amputation
Bladder cancer
Legally blind
Chief Complaint
-: Bacteremia
Subjective / Review of Systems
Daughter at bedside.
Pt now alert. No cough or SOB at this time.
Vital Signs / Physical Exam
Vital Signs
Vital Signs
Temp Pulse Resp BP Pulse Ox
97.5 F 83 17 86/53 96
10/05/23 07:48 10/05/23 07:34 10/05/23 07:34 10/05/23 08:38 10/05/23 07:34
Physical Exam
Constitutional: No Acute Distress and Comfortable
Cardiovascular: Regular Rate and S1/S2
Pulmonary: Other (Decreased BS at bases.)
Gastrointestinal: Soft, Non Tender and Non Distended
Neurological: Awake and Alert (more alert)
Lines: HD Cath (intact)
Objective Data
Lab Data
PT 18.8 Sec (11.4-14.6) H 10/02/23 09:05
INR 1.60 10/02/23 09:05
APTT 43.1 Sec (23.4-35.0) H 10/02/23 09:05
Estimated Creat Clear 15 ml/min 10/04/23 07:43
Lactic Acid Cancelled 10/02/23 07:36
Total Bilirubin 0.8 mg/dl (0.2-1.3) 10/03/23 03:27
AST 38 U/L (17-59) 10/03/23 03:27
ALT < 10 U/L (0-50) 10/03/23 03:27
Alkaline Phosphatase 121 U/L (38-126) 10/03/23 03:27
Most recent labs reviewed.
Micro Results:
10/01/23 15:22 Blood Culture - Preliminary
Blood/Venous Streptococcus species
Gram negative bacilli
Gram Stain - Preliminary
10/02/23 09:29 Blood Culture - Preliminary
Blood/Venous No Growth in 72 hours- Final report to follow
10/02/23 09:05 Blood Culture - Preliminary
Blood/Venous No Growth in 72 hours- Final report to follow
10/01/23 15:22 Blood Culture - Preliminary
Blood/Venous No Growth in 72 hours- Final report to follow
10/01/23 22:53 Respiratory Culture - Final
Sputum Gram Stain - Final
10/01/23 CXR: Mild cardiomegaly with suggestion of mild interstitial and alveolar cardiogenic pulmonary edema. Small bilateral pleural effusions.Moderate left lower lobe airspace consolidation which has been present since June 2023 (either chronic
pneumonia or a combination of atelectasis and scarring).
10/02/23 CXR: Small bilateral pleural effusions with associated left lower lobe atelectasis, slightly progressed.
10/04/23 CXR: Predominantly stable appearance of the chest with findings suggesting small to moderate bilateral pleural effusions.
[2023-10-05 12:16] LABS: Glucose - Point of Care 88 mg/dl (70-99)
--- NOTE | 2023-10-05 12:55 | PTOTSP ---
Video Swallow Study
Summary: Patient presents with mild oral and at least moderate-severe pharyngeal dysphagia. Etiology is unknown, but this may be exacerbated by recent intubation/extubation (/). There was silent aspiration of thin liquids via straw and mildly
thick liquid via cup. Please see patient care note for full details of penetration/aspiration and swallowing physiology.
Patient confused and with decreased insight into his dysphagia and subsequent risks/complications.
Recommend:
1. NPO - consider temporary non-oral means
2. Medications - via non-oral means
3. Oral care 3x daily
4. Aspiration Risk Hydration Protocol - single small sips of water sparingly, ONLY after oral care, ONLY with direct supervision/assistance; discontinue if worsening respiratory status noted
5. Dysphagia therapy at the acute care level. Consider repeat video swallow study prior to thin or mildly thick liquids, given silent aspiration.
[2023-10-05 17:18] LABS: Glucose - Point of Care 75 mg/dl (70-99)
[2023-10-05] MEDS: HEPARIN SC ×2 (17:54→23:49)
[2023-10-05] MEDS: SANTYL OINTMENT 1 APPLIC TOPICAL (17:54)
--- NOTE | 2023-10-05 18:54 | W.PN.UPDATE ---
Update Note
Progress Note Update
Patient with waxing and waning mental status today
Episode of asymetric facial muscles on physical exam
Speech therapy evaluation and video swallow evaluation showed aspiration risk, with n.p.o. recommendation.
Patient's family requested my presence to discuss their decision. Discussion with family and inspector aligning. Together with patient, family collectively made the decision to pursue hospice. Patient actively involved in decision making. Questions,
concerns and planning were discussed. Patient and family prefer home with hospice care. Hospice consult was placed.
--- NOTE | 2023-10-05 20:00 | PTCARENOTE ---
pt`s daughter at bedside. requested to chat with AUDIT ASSOCIATE. Pt`s daughter stated pt does not want dialysis in AM. hospice is plan. AUDIT ASSOCIATE agreed.
--- NOTE | 2023-10-05 23:00 | PTCARENOTE ---
Addendum entered by Jenny Simon RN 10/05/23 23:48:
pt educated on importance of checking low blood sugar.
Original Note:
RT attempted to place pt on BIPAP per MD orders. pt refused. RN then educated pt on BIPAP. pt continued to refuse treatment.
[2023-10-05 23:29] LABS: Glucose - Point of Care 69 mg/dl (70-99)
--- NOTE | 2023-10-05 23:45 | PTCARENOTE ---
pt`s blood sugar checked and was 69. OJ given and RN attempted to recheck blood sugar after 15 minutes, per protocol, and pt refused. VICE PRESIDENT OF CUSTOMER SERVICE notified.
--- NOTE | 2023-10-05 23:55 | W.PN.UPDATE ---
Update Note
Progress Note Update
Patient and family are pursuing hospice. Patient is declining interventions for hypoglycemia. He does not want anymore AccuChecks done. Order DC.
[2023-10-06] VITALS (12 sets, daily range): BP systolic 88–105; BP diastolic 45–59
--- NOTE | 2023-10-06 07:14 | W.PN.HOSP.TC ---
Addendum entered and electronically signed by Will Uribe MD 10/06/23 13:37:
I saw and evaluated the patient. I reviewed the resident�s note and agree with findings and plan as documented in the resident�s note. Full 12 point ROS reviewed and attempted. Patient falling asleep. Appears to be coherent. Noted to have right
facial droop per nursing. Patient has no complaints. Denies neuro sxs. Seen with daughter present. Exam: Vitals reviewed in chart GEN-NAD heart RRR lungs scattered crackles abd NG tube in place soft Ext- LE left BKA right AKA, Right IJ tunneled
cath present neuro right facial droop Plan:
# Ventilator Dependent Respiratory Failure
- intubated 10/01
- extubated 10/03
- d/w family re changing code status to DNR after extubation- NOT TO BE REINTUBATED
- DC home on home hospice
# Septic Shock unclear source
-complated abx dc home on home hospice
# Dysphagia-
- failed VFSS
- start comfort feeds
- home on hospice
# Unresponsive Episode-at [facility] probable
- unclear etiology
- transition to comfort care
# HRrEF exacerbation-
- nephro and cards input appreciated
- echo 10/01- global hypokinesis ef 20%
- poor prog - cont hospice at home
# PAD-
- s/p AKA and BKA
- cont wound care
# Sacral Ulcer stage 2 pressure
- left medial sacrum
- POA
- cont wound care
# H/O IDDM-
- not on home meds
- cont SSI for now
# ESRD-
- on HD MWF
- nephro input appreciated
- DC HD
# Depression-
- cont Remeron and Lexapro
# HLD-
- cont atorvastatin
DVT proph-heparin
Dispo DC home on hospice
Time spent coordinating care, review of plan of care with resident, review of records, med rec, consults, DC planning, transition of care, notes, labs, rads, d/w nursing family and hospice� 37 mins
Original Note:
Today's Communication/Plan
-
Hospice care
Assessment / Plan
Assessment / Plan
Acute problems:
Acute hypoxic hypercapnic respiratory failure
Sepsis
Conditions APPRENTICE/LINEMAN:
ESRD
Hypercholesterolemia
GERD
Insulin-dependent diabetes mellitus
Visual impairment
History of CAD
#Comfort care measures only
#Ventilator dependent respiratory failure
Head CT showed no acute intracranial process
Chest x-ray: Stable small bilateral pleural effusions and left lower lobe probable atelectasis.
intubated 09/30-10/03. Extubated at 12:24pm 10/03. Not to be reintubated
Self-removed ET tube, speech therapy evaluation and video swallow showed aspiration -> NPO
#Septic shock
Secondary to respiratory vs pressure ulcer vs vascular lines
Blood cultures 09/30 positive for Strep and gram negative bacilli. F/U blood Cx 10/01 no growth
Leukocytosis resolved
# HRrEF exacerbation-
- for gentle ultrafiltration on HD due to hypotension
- nephro and cards consult
- echo 10/01- global hypokinesis ef 20%
#Altered mental status
Unresponsive episode
Seems to be resolved postextubation. Alert and appropriately responsive on exam today
- unclear etiology
- head CT neg for bleed
Hypoglycemia
- Discontinue accuchecks per patient preference
# Pulmonary edema
-Dialysis discontinued
#ESRD
-On hemodialysis Mondays, Wednesdays and Fridays
- Dialysis discontinued, comfort measures
#Pressure ulcer
Left buttock, sacral wound
- Wound care on board
#Hypercholesterolemia
-Statin stopped
#GERD
-GI prophylaxis discontinued
#Insulin-dependent diabetes mellitus
On no home therapy
HbA1c 5.8
-Accuchecks Discontinued
# History of CAD
#Depression
#Visual impairment
Dispo: Hospice
Code Status: DNR
Anticipated Discharge: Within 24 hours
Subjective/Interval History
-
Date of Service: October 06, 2023
Comfort care only. ON HOSPICE
Hypoglycemia overnight, resolved with juice. Patient refuses any further accuchecks.
Refused HS bipap
Spoke to patient today, he says he is no discomfort and does not need anything at this time.
Objective Data
-
Vital Signs:
Vital Signs
Temp Pulse Resp BP Pulse Ox
98.0 F 74 16 99/52 100
10/06/23 03:30 10/06/23 06:30 10/06/23 06:30 10/06/23 06:00 10/06/23 06:30
I&O
10/05/23 10/06/23 10/07/23
06:59 06:59 06:59
Intake Total 1190 / 1190
Balance 1190 / 1190
Review of Systems
-
History Source: Patient
Constitutional: Reports No Symptoms
Respiratory: Reports No Symptoms
Cardiac: Reports No Symptoms
Abdomen/GI: Reports No Symptoms
Musculoskeletal: Reports No Symptoms
Neuro: Reports No Symptoms
Physical Exam
-
Respiratory: Clear to Auscultation
Cardiac: Regular Rhythm and S1/S2
GI: Soft, Nontender, Nondistended and Normal Bowel Sounds
Musculoskeletal: No Clubbing, No Cyanosis and No Edema
Skin: Warm and Dry
Neuro: Awake, Alert and Oriented
Psych: Calm
--- NOTE | 2023-10-06 09:53 | HOSPNOTE ---
Spoke with son and discussed hospice and the philosophy. The son is in agreement and would like to bring his dad (the patient) home on hospice services. Equipment was ordered and will be delivered. Once patient arrives home we will sign patient onto
hospice services with hospice. OOH DNR needed on chart. Case management and Attending aware of plan. Transport will be needed.
--- NOTE | 2023-10-06 10:14 | W.DCSUMMARY ---
Documented by User: Vita La MD, Resident 10/06/23 12:10
Discharge Summary
Discharge Data
Date of Admission: 10/01/23
Date of Discharge: 10/06/23
-
Pending Results: No
Hospital Course
Is a 78-year-old male with slow cognitive decline , insulin-dependent diabetes mellitus, neuropathy, end-stage renal disease on hemodialysis, PAD status post bilateral lower extremity amputations, heart failure with reduced ejection fraction who was
brought to ER on September 30 from [facility] after he was found unresponsive.
# Ventilator Dependent Respiratory Failure
- intubated 10/01
- extubated 10/03
- d/w family re changing code status to DNR after extubation- NOT TO BE REINTUBATED
- transfer to med surg- start comfort care
# Septic Shock unclear source
- blood cx pos for GPC and GNB - possible contaminant
- DC vanco cont Rocephin- transition to Augmentin
- repeat blood cx x 2 NGTD 10/01
- weaned off levophed
- c/s ID - appreciate input
- monitor closely
# Dysphagia-
- failed VFSS
- NPO
- hospice talks had- all parties are in agreement
- start comfort care
- transition to home hospice when able
- c/s hospice
# Unresponsive Episode-at [facility] probable
- unclear etiology
- cont to monitor responsiveness post extubation/off sedation
- head CT neg for bleed
- transition to comfort care
# HRrEF exacerbation-
- ultrafiltration on HD
- nephro and cards input appreciated
- echo 10/01- global hypokinesis ef 20%
- cont metoprolol
- cont midodrine for support
- poor prog - cont hospice likely DC HD
# PAD-
- s/p AKA and BKA
- cont wound care
# Sacral Ulcer stage 2 pressure
- left medial sacrum
- POA
- cont wound care
# H/O IDDM-
- not on home meds
- cont SSI for now
# ESRD-
- on HD MWF
- nephro input appreciated
# Depression-
- cont Remeron and Lexapro
# HLD-
- cont atorvastatin
Discharge Plan
-
Patient Disposition: Home with Hospice
Discharge Diagnosis/Procedures: Sepsis, ventilator-dependent respiratory failure, ESRD on hemodialysis, EF
Diet: As tolerated
Activity: As tolerated
Driving Restrictions: No driving
Bathing Restrictions: None
Other Services: Hospice
Activity Restrictions/Additional Instructions:
Wound Care Instructions
Sacral ulcer-clean with saline or Vashe wound cleanser, no sting barrier wipe to surrrounding skin (allow to dry), Santyl ointment prn necrotic tissue, silicone border foam, change daily and prn drainage (add alginate prn large amount of drainage).
L inner buttocks-clean with saline, silicone border foam, change q 2 days and prn loosened dressing.
R hand skin tear-clean with saline, silicone border foam, change q 2 days and prn drainage (add adaptic/alginate prn large amount of drainage).
Air mattress.
Elevate heels off bed with pillow/s.
Pressure redistributing chair cushion (i.e. Roho).
Referrals:
UNKNOWN,NO INTERVIEW [Family Provider] -
Prescriptions:
New
lorazepam 2 mg/mL concentrate
0.5 mg buccal Q2HPRN PRN (Reason: anxiety) Qty: 30 0RF
morphine 10 mg/5 mL solution
5 mg PO Q2H PRN (Reason: Pain) Qty: 500 0RF
acetaminophen 650 mg suppository
650 mg VA Q6H PRN (Reason: fever or pain) Qty: 50 0RF
Continued
bisacodyl [Dulcolax (bisacodyl)] 10 mg Suppository
10 mg VA DAILYPRN PRN (Reason: constipation)
Santyl 250 unit/gram Ointment
1 applic TOPICAL QPM
Discontinued
atorvastatin 80 MG tablet
80 mg PO HS
escitalopram oxalate 5 MG tablet
5 mg PO HS
pantoprazole 40 MG tablet,delayed release (DR/EC)
40 mg PO BID
aspirin 81 MG tablet,chewable
81 mg PO DAILY
sevelamer HCl 800 mg Tablet
1,600 mg PO AC
docusate sodium 100 mg Capsule
200 mg PO HS
midodrine 10 mg tablet
10 mg PO TID
Rx Instructions:
hold if SBP>140.
acetaminophen [Tylenol] 325 mg Tablet
650 mg PO Q6H PRN (Reason: mild pain)
potassium, sodium phosphates [Phos-NaK] 280-160-250 mg Powder In Packet
1 packet PO TID
metoprolol succinate 25 mg Tablet Extended Release 24 Hr
25 mg PO BID 30 Days Qty: 60 0RF
mirtazapine 7.5 mg Tablet
7.5 mg PO HS 30 Days Qty: 30 0RF
multivitamin Tablet
1 tab PO DAILY
Santyl 250 unit/gram Ointment
1 applic TOPICAL DAILY PRN (Reason: WOUND CARE)
cholecalciferol (vitamin D3) [Vitamin D3] 25 mcg (1,000 unit) Tablet
50 mcg PO DAILY
oxycodone 5 mg Tablet
5 mg PO Q4HPRN PRN (Reason: moderate pain) Qty: 5 0RF
Discharge Orders:
Discharge Patient (As Directed); Ordered 10/06/23
Ordered By: Vita La
Discharge Date and Time
Print Language: BOLIVIAN

Documented by User: Will Uribe MD 10/06/23 13:33
Discharge Summary
Discharge Data
Date of Admission: 10/01/23
Date of Discharge: 10/06/23
Discharge Plan
-
Patient Disposition: Home with Hospice
Discharge Diagnosis/Procedures: Sepsis, ventilator-dependent respiratory failure, ESRD on hemodialysis, EF
Diet: As tolerated
Activity: As tolerated
Driving Restrictions: No driving
Bathing Restrictions: None
Other Services: Hospice
Activity Restrictions/Additional Instructions:
Wound Care Instructions
Sacral ulcer-clean with saline or Vashe wound cleanser, no sting barrier wipe to surrrounding skin (allow to dry), Santyl ointment prn necrotic tissue, silicone border foam, change daily and prn drainage (add alginate prn large amount of drainage).
L inner buttocks-clean with saline, silicone border foam, change q 2 days and prn loosened dressing.
R hand skin tear-clean with saline, silicone border foam, change q 2 days and prn drainage (add adaptic/alginate prn large amount of drainage).
Air mattress.
Elevate heels off bed with pillow/s.
Pressure redistributing chair cushion (i.e. Roho).
Referrals:
UNKNOWN,NO INTERVIEW [Family Provider] -
Prescriptions:
New
lorazepam 2 mg/mL concentrate
0.5 mg buccal Q2HPRN PRN (Reason: anxiety) Qty: 30 0RF
morphine 10 mg/5 mL solution
5 mg PO Q2H PRN (Reason: Pain) Qty: 500 0RF
acetaminophen 650 mg suppository
650 mg VA Q6H PRN (Reason: fever or pain) Qty: 50 0RF
Continued
bisacodyl [Dulcolax (bisacodyl)] 10 mg Suppository
10 mg VA DAILYPRN PRN (Reason: constipation)
Santyl 250 unit/gram Ointment
1 applic TOPICAL QPM
Discontinued
atorvastatin 80 MG tablet
80 mg PO HS
escitalopram oxalate 5 MG tablet
5 mg PO HS
pantoprazole 40 MG tablet,delayed release (DR/EC)
40 mg PO BID
aspirin 81 MG tablet,chewable
81 mg PO DAILY
sevelamer HCl 800 mg Tablet
1,600 mg PO AC
docusate sodium 100 mg Capsule
200 mg PO HS
midodrine 10 mg tablet
10 mg PO TID
Rx Instructions:
hold if SBP>140.
acetaminophen [Tylenol] 325 mg Tablet
650 mg PO Q6H PRN (Reason: mild pain)
potassium, sodium phosphates [Phos-NaK] 280-160-250 mg Powder In Packet
1 packet PO TID
metoprolol succinate 25 mg Tablet Extended Release 24 Hr
25 mg PO BID 30 Days Qty: 60 0RF
mirtazapine 7.5 mg Tablet
7.5 mg PO HS 30 Days Qty: 30 0RF
multivitamin Tablet
1 tab PO DAILY
Santyl 250 unit/gram Ointment
1 applic TOPICAL DAILY PRN (Reason: WOUND CARE)
cholecalciferol (vitamin D3) [Vitamin D3] 25 mcg (1,000 unit) Tablet
50 mcg PO DAILY
oxycodone 5 mg Tablet
5 mg PO Q4HPRN PRN (Reason: moderate pain) Qty: 5 0RF
Discharge Orders:
Discharge Patient (As Directed); Ordered 10/06/23
Ordered By: Vita La
Discharge Date and Time
Print Language: BOLIVIAN
--- NOTE | 2023-10-06 10:44 | CM ---
CM following re: discharge planning.
Reviewed pt's chart, met with pt. Pt's son Esteban, daughter and daughter in law at bedside.
Per rehab liaison, pt is accepted for hospice care and will be signed in on hospice today. Per liaison, all DME will be delivered to pt's son home today by 12:00 p.m. Address: [address] [place] [address]. There is no step josephine enter
the house.
CM met with pt and his family and they are aware of the plan. Emotional support offered and provided. IMM reviewed, placed on chart, pt's son has a copy. Pt's family requested transportation with pick up operator time between 3:00 p.m. and 4:00 p.m.
to arrange BLS with pick up operator time between 3:00 p.m. and 4:00 p.m. PMNC completed and left with [facility].
D/C plan: home with hospice.
[2023-10-06] MEDS: NSS (PRESERVATIVE FREE) IV (10:45)
[2023-10-06] MEDS: PROTONIX IV IV (10:45)
[2023-10-06] MEDS: HEPARIN SC (10:45)
[2023-10-06] MEDS: ATIVAN 0.5 MG IV (10:50)
[2023-10-06] MEDS: NSS (PRESERVATIVE FREE) 1 ML IV (10:51)
--- NOTE | 2023-10-06 11:30 | W.PN.ID1 ---
Date of Service
Date of Service: October 06, 2023
Today's Communication
Since pt opted for hospice, dc abx.
Assessment / Plan
# ESBL-Klebsiella, E. faecalis bacteremia 1 of 4 bottles = contaminant
- Repeat blood cx's neg
# Dysphagia - failed swallow study
# Possible pneumonia
-s/p Zosyn (4d)
- Since pt opted for hospice, dc ceftriaxone.
# CHF exacerbation
# s/p unresponsiveness - resolved
#Additional Past Medical History:
Suspected dementia
Insulin-dependent diabetes mellitus
Neuropathy
End-stage renal disease on hemodialysis via HD catheter
s/p LUE AV fistula with PTFE gore graft (09/28/23)
non-functioning R UE AVF
Chronic hypotension
Dyslipidemia
HFrEF
BPH status post TURP
Depression
CAD s/p stent
CVA
PAD d/p R fem artery stent
Left above-knee amputation
Right below-knee amputation
Bladder cancer
Legally blind
Chief Complaint
-: Bacteremia
Subjective / Review of Systems
More alert today. No complaints. Is comfortable.
Events noted. Patient transitioning to [facility].
Vital Signs / Physical Exam
Vital Signs
Vital Signs
Temp Pulse Resp BP Pulse Ox
98.2 F 74 16 99/52 94
10/06/23 07:28 10/06/23 06:30 10/06/23 06:30 10/06/23 06:00 10/06/23 08:00
Physical Exam
Constitutional: No Acute Distress and Comfortable
Pulmonary: Clear (anterior chest)
Gastrointestinal: Soft, Non Tender and Non Distended
Neurological: Awake and Alert
Objective Data
Lab Data
Lab Results
10/05/23 06:00
10/05/23 06:00
PT 18.8 Sec (11.4-14.6) H 10/02/23 09:05
INR 1.60 10/02/23 09:05
APTT 43.1 Sec (23.4-35.0) H 10/02/23 09:05
Estimated Creat Clear Cancelled 10/05/23 06:00
Lactic Acid Cancelled 10/02/23 07:36
Total Bilirubin 0.8 mg/dl (0.2-1.3) 10/03/23 03:27
AST 38 U/L (17-59) 10/03/23 03:27
ALT < 10 U/L (0-50) 10/03/23 03:27
Alkaline Phosphatase 121 U/L (38-126) 10/03/23 03:27
Most recent labs reviewed.
Micro Results:
10/02/23 09:29 Blood Culture - Preliminary
Blood/Venous No Growth in 4 days- Final report to follow
10/01/23 15:22 Blood Culture - Final
Blood/Venous Enterococcus faecalis
Klebsiella pneumoniae-ESBL
Gram Stain - Final
10/02/23 09:05 Blood Culture - Preliminary
Blood/Venous No Growth in 4 days- Final report to follow
10/01/23 15:22 Blood Culture - Preliminary
Blood/Venous No Growth in 4 days- Final report to follow
10/01/23 22:53 Respiratory Culture - Final
Sputum Gram Stain - Final
10/01/23 CXR: Mild cardiomegaly with suggestion of mild interstitial and alveolar cardiogenic pulmonary edema. Small bilateral pleural effusions.Moderate left lower lobe airspace consolidation which has been present since June 2023 (either chronic
pneumonia or a combination of atelectasis and scarring).
10/02/23 CXR: Small bilateral pleural effusions with associated left lower lobe atelectasis, slightly progressed.
10/04/23 CXR: Predominantly stable appearance of the chest with findings suggesting small to moderate bilateral pleural effusions.
--- NOTE | 2023-10-06 13:42 | W.DCSUMMARY ---
Addendum entered and electronically signed by Will Uribe MD 10/06/23 22:30:
Attending Addendum:
Read reviewed and agree. See same day progress note for additional details.
Se Uribe MD
Original Note:
Documented by User: Vita La MD, Resident 10/06/23 15:01
Discharge Summary
Discharge Data
Date of Admission: 10/01/23
Date of Discharge: 10/06/23
-
Pending Results: No
Hospital Course
Pt is a 78-year-old male with insulin-dependent diabetes mellitus, neuropathy, end-stage renal disease on hemodialysis, PAD status post bilateral lower extremity amputations, heart failure with reduced ejection fraction who was brought to ER on
September 30 from [facility] after he was found unresponsive.
Hospital Course:
He arrived unresponsive, afebrile, hypotensive, bradypneic, with leukocytosis. CT head showed no acute intracranial process, CXR showed stable small bilateral pleural effusions and left lower lobe probable atelectasis. Labs showed leukocytosis of
12.6, anemia to 10.8, hypercapnia with pCO2 58, pH 7.18, and blood cultures were collected. Because of his altered mental status with hypercapnia he was intubated and then transferred to the ICU for further care. Cardiology, intensive care and
nephrology consults were involved in his care
#Ventilator Dependent Respiratory Failure:
He was intubated on 10/01, acidosis improved steadily, some episodes of apnea on SBT, eventually weaned to bipap and extubated on 10/03. Pt and family decided not to reintubate after extubation.
#Septic Shock of Unclear source:
He was started on broad spectrum antibiotic coverage on arrival. Blood pressure support with levophed as appropriate. Eventually converted to Midodrine. Blood cultures 09/30 positive for Enterococcus faeclis nd Klebsiella pneumonia. F/U blood Cx
10/01 no growth. Completed abx course.
#Dysphagia:
Status post extubation and NG tube self-removal. Video swallow showed aspiration. Patient made NPO for aspiration risk
#Altered mental status:
Etiology was unclear. Pt was found unresponsive at [facility], and his mental status waxed and waned throughout stay.
#HFrEF:
echo on 10/01 showed global hypokinesis and EF of 20%, dialysis schedule maintained
HOSPICE: On 10/04, family and patient opted to pursue hospice. Comfort care measures only. Pt discharged on 10/05 to home on hospice
Chronic discharge conditions:
PAD, status post lower extremity amputations
Pressure ulcer, left buttock - wound care throughout stay
Insulin dependent diabetes mellitus - on no home therapy, insulin sliding scale during stay
Depression - Remeron and Lexapro continued during stay
Discharging Physician: Vita La MD; Will Uribe MD
Disposition: Home with hospice
Principal discharge diagnosis: Ventilator dependent acute hypoxic respiratory failure, septic shock of unclear source, dysphagia, altered mental status, HFrEF
Chronic discharge diagnosis: PAD, pressure ulcer, Insulin-dependent diabetes mellitus, End Stage Renal Disease, depression, hyperlipidemia, visual impairment
Important Imaging findings:
CT Head w/o contrast 10/01/2023:
1. No CT evidence for acute intracranial hemorrhage or transcortical infarct.
2. Moderate diffuse cerebral and cerebellar volume loss consistent with a chronic neurodegenerative disease.
3. Mild white matter leukoaraiosis in both cerebral hemispheres.
4. Minimal acute left sphenoid sinusitis.
CXR 09/30
Stable small bilateral pleural effusions and left lower lobe probable atelectasis.
Discharge Plan
-
Patient Disposition: Home with Hospice
Discharge Diagnosis/Procedures: Sepsis, ventilator-dependent respiratory failure, ESRD on hemodialysis, EF
Diet: As tolerated
Activity: As tolerated
Driving Restrictions: No driving
Bathing Restrictions: None
Other Services: Hospice
Activity Restrictions/Additional Instructions:
Wound Care Instructions
Sacral ulcer-clean with saline or Vashe wound cleanser, no sting barrier wipe to surrrounding skin (allow to dry), Santyl ointment prn necrotic tissue, silicone border foam, change daily and prn drainage (add alginate prn large amount of drainage).
L inner buttocks-clean with saline, silicone border foam, change q 2 days and prn loosened dressing.
R hand skin tear-clean with saline, silicone border foam, change q 2 days and prn drainage (add adaptic/alginate prn large amount of drainage).
Air mattress.
Elevate heels off bed with pillow/s.
Pressure redistributing chair cushion (i.e. Roho).
Referrals:
UNKNOWN,NO INTERVIEW [Family Provider] -
Prescriptions:
New
lorazepam 2 mg/mL concentrate
0.5 mg buccal Q2HPRN PRN (Reason: anxiety) Qty: 30 0RF
morphine 10 mg/5 mL solution
5 mg PO Q2H PRN (Reason: Pain) Qty: 500 0RF
acetaminophen 650 mg suppository
650 mg AK Q6H PRN (Reason: fever or pain) Qty: 50 0RF
Continued
bisacodyl [Dulcolax (bisacodyl)] 10 mg Suppository
10 mg AK DAILYPRN PRN (Reason: constipation)
Santyl 250 unit/gram Ointment
1 applic TOPICAL QPM
Discontinued
atorvastatin 80 MG tablet
80 mg PO HS
escitalopram oxalate 5 MG tablet
5 mg PO HS
pantoprazole 40 MG tablet,delayed release (DR/EC)
40 mg PO BID
aspirin 81 MG tablet,chewable
81 mg PO DAILY
sevelamer HCl 800 mg Tablet
1,600 mg PO AC
docusate sodium 100 mg Capsule
200 mg PO HS
midodrine 10 mg tablet
10 mg PO TID
Rx Instructions:
hold if SBP>140.
acetaminophen [Tylenol] 325 mg Tablet
650 mg PO Q6H PRN (Reason: mild pain)
potassium, sodium phosphates [Phos-NaK] 280-160-250 mg Powder In Packet
1 packet PO TID
metoprolol succinate 25 mg Tablet Extended Release 24 Hr
25 mg PO BID 30 Days Qty: 60 0RF
mirtazapine 7.5 mg Tablet
7.5 mg PO HS 30 Days Qty: 30 0RF
multivitamin Tablet
1 tab PO DAILY
Santyl 250 unit/gram Ointment
1 applic TOPICAL DAILY PRN (Reason: WOUND CARE)
cholecalciferol (vitamin D3) [Vitamin D3] 25 mcg (1,000 unit) Tablet
50 mcg PO DAILY
oxycodone 5 mg Tablet
5 mg PO Q4HPRN PRN (Reason: moderate pain) Qty: 5 0RF
Discharge Orders:
Discharge Patient (As Directed); Ordered 10/06/23
Ordered By: Vita La
Discharge Date and Time
Discharge Date/Time: 10/06/23 16:50
Print Language: SWEDISH

Documented by User: Will Uribe MD 10/06/23 22:30
Discharge Summary
Discharge Data
Date of Admission: 10/01/23
Date of Discharge: 10/06/23
Discharge Plan
-
Patient Disposition: Home with Hospice
Discharge Diagnosis/Procedures: Sepsis, ventilator-dependent respiratory failure, ESRD on hemodialysis, EF
Diet: As tolerated
Activity: As tolerated
Driving Restrictions: No driving
Bathing Restrictions: None
Other Services: Hospice
Activity Restrictions/Additional Instructions:
Wound Care Instructions
Sacral ulcer-clean with saline or Vashe wound cleanser, no sting barrier wipe to surrrounding skin (allow to dry), Santyl ointment prn necrotic tissue, silicone border foam, change daily and prn drainage (add alginate prn large amount of drainage).
L inner buttocks-clean with saline, silicone border foam, change q 2 days and prn loosened dressing.
R hand skin tear-clean with saline, silicone border foam, change q 2 days and prn drainage (add adaptic/alginate prn large amount of drainage).
Air mattress.
Elevate heels off bed with pillow/s.
Pressure redistributing chair cushion (i.e. Roho).
Referrals:
UNKNOWN,NO INTERVIEW [Family Provider] -
Prescriptions:
New
lorazepam 2 mg/mL concentrate
0.5 mg buccal Q2HPRN PRN (Reason: anxiety) Qty: 30 0RF
morphine 10 mg/5 mL solution
5 mg PO Q2H PRN (Reason: Pain) Qty: 500 0RF
acetaminophen 650 mg suppository
650 mg AK Q6H PRN (Reason: fever or pain) Qty: 50 0RF
Continued
bisacodyl [Dulcolax (bisacodyl)] 10 mg Suppository
10 mg AK DAILYPRN PRN (Reason: constipation)
Santyl 250 unit/gram Ointment
1 applic TOPICAL QPM
Discontinued
atorvastatin 80 MG tablet
80 mg PO HS
escitalopram oxalate 5 MG tablet
5 mg PO HS
pantoprazole 40 MG tablet,delayed release (DR/EC)
40 mg PO BID
aspirin 81 MG tablet,chewable
81 mg PO DAILY
sevelamer HCl 800 mg Tablet
1,600 mg PO AC
docusate sodium 100 mg Capsule
200 mg PO HS
midodrine 10 mg tablet
10 mg PO TID
Rx Instructions:
hold if SBP>140.
acetaminophen [Tylenol] 325 mg Tablet
650 mg PO Q6H PRN (Reason: mild pain)
potassium, sodium phosphates [Phos-NaK] 280-160-250 mg Powder In Packet
1 packet PO TID
metoprolol succinate 25 mg Tablet Extended Release 24 Hr
25 mg PO BID 30 Days Qty: 60 0RF
mirtazapine 7.5 mg Tablet
7.5 mg PO HS 30 Days Qty: 30 0RF
multivitamin Tablet
1 tab PO DAILY
Santyl 250 unit/gram Ointment
1 applic TOPICAL DAILY PRN (Reason: WOUND CARE)
cholecalciferol (vitamin D3) [Vitamin D3] 25 mcg (1,000 unit) Tablet
50 mcg PO DAILY
oxycodone 5 mg Tablet
5 mg PO Q4HPRN PRN (Reason: moderate pain) Qty: 5 0RF
Discharge Orders:
Discharge Patient (As Directed); Ordered 10/06/23
Ordered By: Vita La
Discharge Date and Time
Discharge Date/Time: 10/06/23 16:50
Print Language: SWEDISH
== END 2023-10-06 16:50 | disposition hospice, home (50) | DRG 871 ==
LOC: ICU 18:53
PROVIDERS: Internal Medicine Critical Care Medicine; Nurse Practitioner Family; Radiology Diagnostic Radiology; Specialist; Student in an Organized Health Care Education/Training Program; ADMITTING PHYSICIAN Internal Medicine; ATTENDING PHYSICIAN Family Medicine; CONSULT PHYSICIAN Internal Medicine; CONSULT PHYSICIAN Internal Medicine Critical Care Medicine; CONSULT PHYSICIAN Internal Medicine Infectious Disease; EMERGENCY PHYSICIAN Emergency Medicine
PROC: 0BH17EZ Insertion of Endotracheal Airway into Trachea, Via Natural or Artificial Opening (ICD-10-PCS; 2023-10-01)
PROC: 5A1945Z Respiratory Ventilation, 24-96 Consecutive Hours (ICD-10-PCS; 2023-10-01)
PROC: 5A1D70Z Performance of Urinary Filtration, Intermittent, Less than 6 Hours Per Day (ICD-10-PCS; 2023-10-02)
PROC: 0JPT3XZ Removal of Tunneled Vascular Access Device from Trunk Subcutaneous Tissue and Fascia, Percutaneous Approach (ICD-10-PCS; 2023-10-06)
DX: A41.9 Sepsis, unspecified organism (principal); I50.23 Acute on chronic systolic (congestive) heart failure; L89.154 Pressure ulcer of sacral region, stage 4; J96.01 Acute respiratory failure with hypoxia; J96.02 Acute respiratory failure with hypercapnia; R65.21 Severe sepsis with septic shock; R57.8 Other shock; N18.6 End stage renal disease; J98.11 Atelectasis; I13.2 Hypertensive heart and chronic kidney disease with heart failure and with stage 5 chronic kidney disease, or end stage renal disease; E87.20 Acidosis, unspecified; L89.322 Pressure ulcer of left buttock, stage 2; E87.5 Hyperkalemia
CPT/HCPCS: 36589; 36600; 70450; 71045; 74018; 74230; 80048; 80053; 80202; 82805; 82962; 83036; 83605; 83735; 84100; 85025; 85027; 85610; 85730; 87040; 87070; 87077; 87186; 87205; 87340; 92523; 92610; 92611; 93005; 93306; 94002; 94003; 94660; 96365; 96375; 99291; G0257; P9047; Q5106